=== PATIENT | female | born 1960 | race Caucasian/White ===

== ENCOUNTER 2020-09-12 08:52 | Inpatient (IN) | payer OTHER, SELFPAY ==
[2020-09-12] VITALS (14 sets, daily range): BP systolic 160–220; BP diastolic 69–110; PULSE 83–93; RESP 16–22; TEMP 36.4–37.1; O2SAT 96–100; BMI 20.3
--- NOTE | 2020-09-12 09:22 | XR_ITS ---
EXAMINATION: XR CHEST CLINICAL INFORMATION: Nausea/vomiting/diarrhea and diffuse abdominal pain. COMPARISON: None TECHNIQUE: 2 views of the chest were obtained. FINDINGS: No significant abnormality is noted involving the heart, lungs, mediastinum, bony thorax or soft tissues. XR/XR chest 2V IMPRESSION: Unremarkable chest.
--- NOTE | 2020-09-12 09:23 | CT_ITS ---
EXAMINATION: CT ABDOMEN AND PELVIS WITH CONTRAST CLINICAL INFORMATION: Left lower quadrant abdominal pain radiating to the rest of the abdomen. Nausea, vomiting and diarrhea. COMPARISON: 05/16/2020 CT abdomen and pelvis with IV contrast. TECHNIQUE: Multidetector volumetric images were obtained from the superior aspect of the liver through the pubic symphysis following administration 85 mL of Omnipaque 350 intravenous contrast. Sagittal and coronal reformatted images were obtained on the technologist's workstation. Oral contrast: No This CT examination was performed using dose optimization techniques as appropriate, variously including the following: *Automated exposure control *Adjustment of mA and/or kV according to patient size (this includes techniques or standardized protocols for targeted exams where dose is matched to indication/reason for exam; i.e. extremities or head) *Use of iterative reconstruction technique DLP: 394 mGy-cm FINDINGS: LUNG BASES: The lung bases are unremarkable. The heart size is normal. There is a pectus excavatum deformity of the chest. Suspect small hiatal hernia. LIVER, GALLBLADDER, AND BILIARY TREE: The liver is normal in size, shape, and attenuation. No focal hepatic lesion or biliary ductal dilatation is present. The gallbladder is unremarkable with no evidence of radiopaque gallstones, gallbladder wall thickening, or obvious pericholecystic inflammatory changes. PANCREAS: Unremarkable. SPLEEN: Unremarkable. ADRENAL GLANDS: Unremarkable. KIDNEYS AND URETERS: The kidneys are normal in size, shape, and attenuation. No hydronephrosis, hydroureter, or calculi seen. No perinephric stranding. BLADDER: The bladder is distended with air-fluid level. Moderate air within the bladder is of unknown etiology. GASTROINTESTINAL TRACT: There are 2 structures along the medial gastric fundus. A 2.8 cm lesion with central calcification on axial image 14/3; a second larger lesion measuring 2.8 x 2.1 cm, posterior to the gastric fundus and appears communicating to the fundal lumen suggestive of diverticulum and best visualized on axial image 14/3. The rest of the visualized stomach, small bowel loops appear unremarkable. There is scattered stool and gas seen throughout the colon without significant distention. A few scattered diverticuli are seen in the sigmoid and descending colon with nonspecific mild mural thickening of descending and sigmoid colon. No pericolic fat stranding seen. There is no free air. ABDOMINAL WALL: No significant hernia is appreciated. LYMPH NODES: Normal. VASCULAR: There is mild atherosclerotic calcification of the thoracic aorta without aneurysmal dilatation. PELVIC VISCERA: The uterus is midline. There is gas visualized in the cervix. No free fluid seen. There is no adnexal mass. OSSEOUS STRUCTURES: No lytic or sclerotic process seen. There is mild ventral spondylosis, upper and mid lumbar spine. CT/CT abdomen pelvis w con IMPRESSION: 1. Moderately distended urinary bladder with air-fluid level. Unknown etiology for air within the bladder. This was not seen on the previous study. Differential diagnosis may include recent bladder catheterization or cervical-bladder fistula or colo-vesicular fistula. Mild constipation with scattered colonic diverticulosis. 2. Two lesions medial to the gastric fundus. Lesion posterior to the fundus is a diverticulum. Lesion medial to the fundus at the GE junction may be a second diverticulum or a small lymph node. It is, however, stable compared to previous study.
[2020-09-12] MEDS: 0.9 % Sodium Chloride 1,000 ML 999 ML IVCONT ×2 (09:42→16:17)
[2020-09-12 09:49] LABS: MANUAL DIFF FLAG NO
[2020-09-12] MEDS: ondansetron HCL 4 MG/2 ML VIAL IVPUSH ×3 (09:49→21:53)
[2020-09-12] MEDS: Ketorolac Tromethamine 15 MG/ML VIAL IV (09:49)
--- NOTE | 2020-09-12 09:54 | ED.NAVMDI ---
HPI - Nausea/Vomiting/Diarrhea General Chief complaint: Nausea/Vomiting/Diarrhea Stated complaint: VOMITING Time Seen by Provider: 09/12/20 09:14 Source: patient Mode of arrival: ambulatory Limitations: no limitations History of Present Illness HPI Narrative: 60yoF c PMHx of Insulin-dependent DM, HTN, depression c a PSHx of an appendectomy presenting to the ED c c/o N/V and LLQ abdominal pain radiating to the rest of the abdomen with associated diarrhea for the past 4 days worse today. Reports initially she was constipated although on she had a large bowel movement which was watery. Reports she also had an episode yesterday of hemoptysis although it was dark therefore she was not sure if it was blood. Reports she has not been able to take her medications since due to the N/V. Denies any other symptoms complaints or concerns at this time. Denies recent travel or sick contacts. Related Data Previous Rx's Medication Instructions Recorded sertraline 50 mg tablet 50 mg PO DAILY #30 tab 09/08/20 Allergies Allergy/AdvReac Type Severity Reaction Status Date / Time Penicillins [PENICILLINS] Allergy Severe INVOLUNTARY Verified 09/12/20 09:45 SPASMS Review of Systems Review of Systems: Constitutional : No Weight loss, No Fever, No Chills, No Night Sweats, No Fatigue, No Malaise ENT/Mouth: No ear pain, No sore throat, No Difficulty swallowing Cardiovascular : No Chest Pain, No SOB, No Palpitations Respiratory : No Cough, No Sputum, No Wheezing, No Dyspnea Gastrointestinal : + Nausea, + Vomiting, + Diarrhea, + abdominal Pain, No Hematochezia, No Melena Genitourinary : No irregular bleeding, No Dysuria, No Urinary Frequency, No Hematuria, No Urinary Incontinence, No Urgency, No Flank Pain Musculoskeletal : No joint pain, No Myalgias, No Joint Swelling Skin : No Skin Lesions, No rash Neuro : No Weakness, No Numbness, No Paresthesias, No Loss of Consciousness, No Dizziness, No Headache Psych : No Social Issues, Heme/Lymph: No Bruising, No Bleeding,No Lymphadenopathy Endocrine : No Polyuria, No Polydipsia, No Temperature Intolerance Yes all other systems are reviewed and are negative PMFSH Past Medical History Attestation statement: The following information was validated with the patient. Medical History Depression Diabetes mellitus, insulin dependent (IDDM), controlled HTN (hypertension) Surgical History Hx of appendectomy Social History Social History Alcohol intake: never Smoking Status: Never smoker Use of substances other than those prescribed or required for medical reasons: No Advance Directives: No Advance Directives Information Provided: No Physical Exam Vital Signs: Vital Signs: Vital Signs Temp Pulse Resp BP Pulse Ox 09/12/20 14:49 91 22 H 179/74 H 98 09/12/20 12:28 98.6 F 93 20 203/103 H 99 09/12/20 09:00 97.6 F 92 16 160/82 H 100 Body Mass Index 20.3 vital signs have been reviewed as normal and appeared to be correct. Blood pressure normal. Heart rate normal. Respiration rate normal. Temperature normal. Oxygen saturation normal. Appearance: Alert. Oriented X3. No acute distress. Head: Normal external exam. Normocephalic. Atraumatic. No Orozco signs noted. No raccoon eyes noted Eyes: PERRLA. EOMI. Conjunctiva and sclera normal. Eyelids normal. ENT: EAC normal. TM's Normal. Pharynx normal. Uvula midline. Moist mucous membranes. No trismus noted. No drooling noted. No muffled voice noted. Neck: Normal inspection. Neck supple. FROM. No adenopathy. Thyroid Normal. No meningeal signs. No neck mass noted. CVS: Normal heart rate and rhythm. Heart sound normal. No murmurs noted. Pulses normal throughout. Respiratory: No respiratory distress. Painless inspiration. Breath sounds normal. No wheezes/rales/rhonchi noted. Chest nontender. No accessory muscle usage noted or decreased air movement noted. Abdomen: Soft and moderate TTP of LLQ abd and diffusely. Bowel sounds normal in all 4 quadrants. No distention noted. No organomegaly noted. No visible injury noted. Back: No CVA tenderness. Full range of motion noted. Skin: Skin warm and dry. Normal skin color. Normal skin turgor. No rashes/lesions/lacerations noted. Extremities: No lower extremity edema. Extremities exhibit normal range of motion. Extremities nontender. Neuro: Oriented X 3. No motor deficit. No sensory deficit. Reflexes normal. Course Course Course Narrative: 9:45am 60yoF c PMHx of Insulin-dependent DM, HTN, depression c a PSHx of an appendectomy presenting to the ED c c/o N/V and LLQ abdominal pain radiating to the rest of the abdomen with associated diarrhea for the past 4 days worse today. Reports initially she was constipated although on she had a large bowel movement which was watery. Reports she also had an episode yesterday of hemoptysis although it was dark therefore she was not sure if it was blood. Reports she has not been able to take her medications since due to the N/V. Denies any other symptoms complaints or concerns at this time. Denies recent travel or sick contacts. - Concern for Diverticulitis vs mass vs perforation - Plan: Labs, CT scan of abd/epvlis c IV contrast. Provide symptomatic treatment with IV fluids, 4 mg of Zofran and 15 mg of Toradol then re-evaluate. Reevaluation(s) Reevaluation #1: [place] [id number] although this was most likely related to the multiple episodes of nausea /vomiting and diarrhea. Although blood cultures and lactic acid ordered and drawn at this time. Patient given IV fluids along with 700 mg of Levaquin for possible intra-abdominal process/infection. We will also provide 2 mg of morphine and 10 mg of Reglan. Still awaiting CT scan of abdomen and pelvis with IV contrast will re-evaluate. Time: 12:00 Reevaluation #2: All other labs are within normal limits including lactic acid which is 0.7. CT scan of abdomen and pelvis revealed moderately distended urinary bladder with air-fluid level in the differential diagnosis on the CT scan was possibly recent bladder catheterization or cervical bladder fistula or colo vesicular fistula although patient denied any recent bladder catheterization. Therefore UA obtained and it appears that patient has UTI. We will plan to admit for UTI/pain control. Patient understands agrees the plan. Time: 15:33 MDM - Nausea/Vomiting/Diarrhea Medical Records Attestation: I reviewed the patient's medical records. Lab Data Attestation: I reviewed the patient's lab results. Result diagrams: 09/12/20 09:43 09/12/20 09:43 Labs: Lab Results 09/12/20 09/12/20 09/12/20 Range/Units 09:43 09:43 09:43 WBC 17.8 H (4.8-10.8) X10*3/uL RBC 3.77 L (4.20-5.50) X10*6/uL Hgb 10.4 L (12.0-16.0) g/dl Hct 30.5 L (37-47) % MCV 80.9 (80-98) fL MCH 27.6 (27.0-33.0) pg MCHC 34.1 (31.0-35.0) g/dl RDW 12.4 (11.0-16.0) % Plt Count 426 H (160-400) X10*3/uL MPV 9.5 (9.4-12.3) fL Immature Gran % (Auto) 0.6 H (0.0-0.4) % Neut % (Auto) 85.3 H (45-73) % Lymph % (Auto) 7.8 L (20-40) % [place] % (Auto) 6.2 (2-11) % Eos % (Auto) 0.0 (0-4) % Baso % (Auto) 0.1 (0-2) % Lymph # (Auto) 1.4 (1.2-4.9) X10*3/uL [place] # (Auto) 1.1 (0.1-1.2) X10*3/uL Eos # (Auto) 0.0 (0.0-0.4) X10*3/uL Baso # (Auto) 0.0 (0.0-0.2) X10*3/uL Abs Immat Gran (auto) 0.11 H (0.00-0.03) X10*3/uL Absolute Neuts (auto) 15.2 H (2.0-8.3) X10*3/uL Absolute Nucleated RBC 0.000 (0.0-0.012) X10*3/uL Nucleated RBC % (auto) 0.0 (0.0-0.2) /100WBC PT 11.5 (10.8-13.0) SEC INR 1.0 (0.9-1.1) Sodium 135 (135-145) mmol/L Potassium 3.4 (3.3-5.1) mmol/l Chloride 92 L (96-108) mmol/L Carbon Dioxide 26 (22-29) mmol/L Anion Gap 20 (12-20) BUN 36 H (9-16) mg/dL Creatinine 1.02 (0.5-1.4) mg/dL Estim Creat Clear Calc 55.9 Estimated GFR 56 Random Glucose 337 H (60-115) mg/dL Lactic Acid (0.5-2.0) mmol/L Calcium 9.4 (8.4-10.2) mg/dL Magnesium 1.6 (1.6-2.6) mg/dL Total Bilirubin 0.6 (0.0-1.0) mg/dL Direct Bilirubin 0.2 (0.0-0.5) mg/dL AST 12 (5-31) U/L ALT 10 (0-31) U/L Alkaline Phosphatase 52 (39-117) U/L Total Protein 6.7 (6.5-8.0) g/dL Albumin 3.9 (3.5-5.0) g/dL Urine Color Urine Appearance Urine pH (5.0-8.0) Ur Specific [place] (1.005-1.025) Urine Protein (NEG-TRACE) MG/DL Urine Glucose (UA) (NEG) MG/DL Urine Ketones (NEG) MG/DL Urine Blood (NEG) Urine Nitrite (NEG) Ur Leukocyte Esterase (NEG) Urine RBC (0) /HPF Urine WBC (0-4) /HPF Urine WBC Clumps Ur Squamous Epith Cells /LPF Urine Bacteria /LPF 09/12/20 09/12/20 Range/Units 11:55 14:46 WBC (4.8-10.8) X10*3/uL RBC (4.20-5.50) X10*6/uL Hgb (12.0-16.0) g/dl Hct (37-47) % MCV (80-98) fL MCH (27.0-33.0) pg MCHC (31.0-35.0) g/dl RDW (11.0-16.0) % Plt Count (160-400) X10*3/uL MPV (9.4-12.3) fL Immature Gran % (Auto) (0.0-0.4) % Neut % (Auto) (45-73) % Lymph % (Auto) (20-40) % [place] % (Auto) (2-11) % Eos % (Auto) (0-4) % Baso % (Auto) (0-2) % Lymph # (Auto) (1.2-4.9) X10*3/uL [place] # (Auto) (0.1-1.2) X10*3/uL Eos # (Auto) (0.0-0.4) X10*3/uL Baso # (Auto) (0.0-0.2) X10*3/uL Abs Immat Gran (auto) (0.00-0.03) X10*3/uL Absolute Neuts (auto) (2.0-8.3) X10*3/uL Absolute Nucleated RBC (0.0-0.012) X10*3/uL Nucleated RBC % (auto) (0.0-0.2) /100WBC PT (10.8-13.0) SEC INR (0.9-1.1) Sodium (135-145) mmol/L Potassium (3.3-5.1) mmol/l Chloride (96-108) mmol/L Carbon Dioxide (22-29) mmol/L Anion Gap (12-20) BUN (9-16) mg/dL Creatinine (0.5-1.4) mg/dL Estim Creat Clear Calc Estimated GFR Random Glucose (60-115) mg/dL Lactic Acid 0.7 (0.5-2.0) mmol/L Calcium (8.4-10.2) mg/dL Magnesium (1.6-2.6) mg/dL Total Bilirubin (0.0-1.0) mg/dL Direct Bilirubin (0.0-0.5) mg/dL AST (5-31) U/L ALT (0-31) U/L Alkaline Phosphatase (39-117) U/L Total Protein (6.5-8.0) g/dL Albumin (3.5-5.0) g/dL Urine Color YELLOW Urine Appearance CLOUDY Urine pH 7.0 (5.0-8.0) Ur Specific [place] 1.025 (1.005-1.025) Urine Protein 3+ H (NEG-TRACE) MG/DL Urine Glucose (UA) 500 H (NEG) MG/DL Urine Ketones 15 (NEG) MG/DL Urine Blood 1+ H (NEG) Urine Nitrite NEG (NEG) Ur Leukocyte Esterase NEG (NEG) Urine RBC 0 (0) /HPF Urine WBC 15-29 H (0-4) /HPF Urine WBC Clumps NOTED Ur Squamous Epith Cells 1+ /LPF Urine Bacteria 3+ /LPF Imaging Data CT scan - abdomen: Attestation: I personally reviewed and interpreted this imaging study as follows: Radiologist's impression: IMPRESSION: 1. Moderately distended urinary bladder with air-fluid level. Unknown etiology for air within the bladder. This was not seen on the previous study. Differential diagnosis may include recent bladder catheterization or cervical-bladder fistula or colo-vesicular fistula. Mild constipation with scattered colonic diverticulosis. 2. Two lesions medial to the gastric fundus. Lesion posterior to the fundus is a diverticulum. Lesion medial to the fundus at the GE junction may be a second diverticulum or a small lymph node. It is, however, stable compared to previous study. Critical Care Time Critical Care Time Critical Care Time: Yes Total Critical Care Time: 60 Attestation: I personally attest to this time spent taking care of the patient Discharge Plan Discharge Clinical Impression: UTI (urinary tract infection) Qualifiers: Urinary tract infection type: acute cystitis Hematuria presence: with hematuria Qualified Code(s): N30.01 - Acute cystitis with hematuria Prescriptions: No Action sertraline 50 mg tablet 50 mg PO DAILY Qty: 30 RF: 4
[2020-09-12 09:55] LABS: Basophils Percent Auto 0.1 % (0-2); Hematocrit 30.5 % (37-47); Hemoglobin 10.4 g/dl (12.0-16.0); Imm Gran Abs Auto 0.11 X10*3/uL (0.00-0.03); Imm Gran Pct Auto 0.6 % (0.0-0.4); Lymphocytes Absolute Auto 1.4 X10*3/uL (1.2-4.9); Lymphocytes Percent Auto 7.8 % (20-40); Mean Corpuscular HGB Conc 34.1 g/dl (31.0-35.0); Mean Corpuscular Hemoglobin 27.6 pg (27.0-33.0); Mean Corpuscular Volume 80.9 fL (80-98); Mean Platelet Volume 9.5 fL (9.4-12.3); Monocytes Absolute Auto 1.1 X10*3/uL (0.1-1.2); Monocytes Percent Auto 6.2 % (2-11); Neutrophils Absolute Auto 15.2 X10*3/uL (2.0-8.3); Neutrophils Percent Auto 85.3 % (45-73); Platelet Count 426 X10*3/uL (160-400); Red Blood Count 3.77 X10*6/uL (4.20-5.50); Red Cell Distribution Width 12.4 % (11.0-16.0); White Blood Count 17.8 X10*3/uL (4.8-10.8)
[2020-09-12 09:59] LABS: Prothrombin Time 11.5 SEC (10.8-13.0)
[2020-09-12 10:34] LABS: Alanine Aminotransferase 10 U/L (0-31); Albumin Level 3.9 g/dL (3.5-5.0); Alkaline Phosphatase 52 U/L (39-117); Anion Gap 20 (12-20); Aspartate Amino Transferase 12 U/L (5-31); Bilirubin Direct 0.2 mg/dL (0.0-0.5); Bilirubin Total 0.6 mg/dL (0.0-1.0); Blood Urea Nitrogen 36 mg/dL (9-16); Calcium 9.4 mg/dL (8.4-10.2); Carbon Dioxide 26 mmol/L (22-29); Chloride 92 mmol/L (96-108); Creatinine Clr Calc Pharmacy 55.9; Estimated Glomerular Filt Rate 56; Glucose Random 337 mg/dL (60-115); Magnesium 1.6 mg/dL (1.6-2.6); Potassium 3.4 mmol/l (3.3-5.1); Sodium 135 mmol/L (135-145); Total Protein 6.7 g/dL (6.5-8.0)
[2020-09-12] MEDS: iohexoL 350 MG/ML 100 ML INFUS..BTL IV (11:33)
[2020-09-12] MEDS: Morphine Sulfate 2 MG/ML CARTRIDGE IVPUSH (12:37)
[2020-09-12] MEDS: levoFLOXacin/D5W 750 MG/150 ML PIGGYBACK 100 MG IV (12:37)
[2020-09-12] MEDS: Metoclopramide HCl 10 MG/2 ML VIAL IVPUSH (12:37)
[2020-09-12 12:40] LABS: Lactic Acid 0.7 mmol/L (0.5-2.0)
--- NOTE | 2020-09-12 14:47 | PC.NURSE ---
ASSISTED TO BEDSIDE COMMODE PT STATES SHE IS ESSENTIAL WC BOUND AT HOME FOR MOBILITY
[2020-09-12 15:02] LABS: Glucose Urine UA 500 MG/DL (NEG); Leukocyte Esterase Urine NEG (NEG); Nitrite Urine NEG (NEG); Specific Gravity - Urine 1.025 (1.005-1.025); Urine Blood 1+ (NEG); Urine Ketones 15 MG/DL (NEG); Urine Protein 3+ MG/DL (NEG-TRACE)
[2020-09-12 15:14] LABS: Appearance Urine CLOUDY; Color Urine YELLOW
[2020-09-12 15:15] LABS: Bacteria Urine 3+ /LPF; RBC Urine 0 /HPF (0); Squamous Epithelial Cell Urine 1+ /LPF; UACC CULT YES; WBC Clumps Urine NOTED
[2020-09-12] MEDS: Morphine Sulfate 4 MG/ML CARTRIDGE IVPUSH (16:16)
[2020-09-12 16:32] LABS: Glucose, Whole Blood 253 mg/dL (60-115)
--- NOTE | 2020-09-12 16:42 | P.EN_ITS ---
Event Note Event Note: admission note Date of service 09/12/2020 the patient was seen and evaluated with Sabrina Moore NP. I agree with her note, assessment and plan with the following. in summary, a 60 years old lady with PMH of HTN, diabetes, depression who presents to the hospital with 3 days history of intractable nausea and vomiting. She denies any fever, chills, palpitation, shortness of breath, cough. She reports her urine turned dark in color and she noticed some black vomitus. Reported generalized abdominal pain. In the emergency CT scan the abdomen was concerning for stomach lesion and air in the bladder. Urinalysis showing bacteria, white blood cells but negative nitrate. Admitted for further evaluation treatment Intractable nausea and vomiting Could be secondary to esophageal diverticulitis, UTI, intra-abdominal infection To cover with IV antibiotics To get GI evaluation Zofran for nausea Pantoprazole for now UTI Urinalysis looks infected, to add urine culture Continue antibiotic t Rest of evaluations by [employer] note.
[2020-09-12] MEDS: Omeprazole 40 MG CAPSULE.DR PO (17:14)
--- NOTE | 2020-09-12 17:17 | P.HPIM_ITS ---
History of Present Illness Date of Service: 09/12/20 Chief Complaint: intractable nausea and vomiting a 60 years old lady with PMH of HTN, diabetes, depression who presents to the hospital with 3 days history of intractable nausea and vomiting. she was doing well until when she was supposed to come to the GI lab for what seems like barium swallow evaluation as part of her workup with Dr. Schulz for gastric lesion. That morning she felt nauseous and started to vomit. She continued to do that over the last 2 days and was not able to keep much down her stomach. She denies any fever, chills, palpitation, shortness of breath, cough. She reports her urine turned dark in color and she noticed some black vomitus. Reported generalized abdominal pain. In the emergency CT scan the abdomen was concerning for stomach lesion and air in the bladder. Urinalysis showing bacteria, white blood cells but negative nitrate. Admitted for further evaluation treatment Review of Systems Review of Systems: No fever, chills or weakness No chest pain, palpitation No shortness of breath or coughing Generalized abdominal pain, intractable nausea or vomiting No urinary symptoms, noticed a urine looks more concentrated No any rash or wounds Constitutional: Constitutional: Reports no additional constitutional complaints [facility] Medical History Depression Diabetes mellitus, insulin dependent (IDDM), controlled HTN (hypertension) Pertinent family history: hypertension, diabetes Surgical History Hx of appendectomy Social History Alcohol intake: never Smoking Status: Never smoker Use of substances other than those prescribed or required for medical reasons: No Advance Directives: No Advance Directives Information Provided: No Meds Allergies Allergy/AdvReac Type Severity Reaction Status Date / Time Penicillins [PENICILLINS] Allergy Severe INVOLUNTARY Verified 09/12/20 09:45 SPASMS Home Medications Medication Instructions Recorded Confirmed Type acetaminophen 650 mg PO Q4H PRN 09/12/20 09/12/20 History fludrocortisone 0.1 mg PO DAILY 09/12/20 09/12/20 History gabapentin 600 mg PO TID 09/12/20 09/12/20 History insulin aspart U-100 [Novolog 0 unit SUBCUT TID 09/12/20 09/12/20 History Flexpen U-100 Insulin] insulin glargine [Lantus Solostar 18 unit SUBCUT BEDTIME 09/12/20 09/12/20 History U-100 Insulin] ketorolac 1 drp OPHTHALMIC (EYE) QID 09/12/20 09/12/20 History lidocaine 1 patch TOPICAL DAILY 09/12/20 09/12/20 History metformin 1,000 mg PO BIDWM 09/12/20 09/12/20 History midodrine 10 mg PO TID 09/12/20 09/12/20 History pioglitazone 15 mg PO DAILY 09/12/20 09/12/20 History tramadol 50 mg PO BEDTIME 09/12/20 09/12/20 History Physical Exam Vital Signs and Narrative: Vital Signs: Last Vital Signs Temp 98.6 F 09/12/20 12:28 Pulse 89 09/12/20 16:22 Resp 20 09/12/20 16:16 BP 163/79 H 09/12/20 16:22 Pulse Ox 97 09/12/20 16:22 Body Mass Index 20.3 Constitutional : Alert, oriented, not in distress Neck : Normal inspection, Supple Cardiovascular : RRR, S1 S2, no lower extremity edema Respiratory : Good bilateral air entry, no crackles, wheezes or rhonchi Gastrointestinal: abdomen is soft and lax, mild tenderness with deep palpation all over her abdomen more noticed on the left lower quadrant, no guarding, no surgical signs Skin : Warm/Dry, No rash Neurological : Alert & oriented x3, No focal deficit Results Labs Labs: Laboratory Tests 09/12/20 09/12/20 09/12/20 09:43 09:43 09:43 WBC 17.8 H RBC 3.77 L Hgb 10.4 L Hct 30.5 L MCV 80.9 MCH 27.6 MCHC 34.1 RDW 12.4 Plt Count 426 H MPV 9.5 Immature Gran % (Auto) 0.6 H Neut % (Auto) 85.3 H Lymph % (Auto) 7.8 L [place] % (Auto) 6.2 Eos % (Auto) 0.0 Baso % (Auto) 0.1 Lymph # (Auto) 1.4 [place] # (Auto) 1.1 Eos # (Auto) 0.0 Baso # (Auto) 0.0 Abs Immat Gran (auto) 0.11 H Absolute Neuts (auto) 15.2 H Absolute Nucleated RBC 0.000 Nucleated RBC % (auto) 0.0 PT 11.5 INR 1.0 Sodium 135 Potassium 3.4 Chloride 92 L Carbon Dioxide 26 Anion Gap 20 BUN 36 H Creatinine 1.02 Estim Creat Clear Calc 55.9 Estimated GFR 56 POC Glucose Random Glucose 337 H Lactic Acid Calcium 9.4 Magnesium 1.6 Total Bilirubin 0.6 Direct Bilirubin 0.2 AST 12 ALT 10 Alkaline Phosphatase 52 Total Protein 6.7 Albumin 3.9 Urine Color Urine Appearance Urine pH Ur Specific [place] Urine Protein Urine Glucose (UA) Urine Ketones Urine Blood Urine Nitrite Ur Leukocyte Esterase Urine RBC Urine WBC Urine WBC Clumps Ur Squamous Epith Cells Urine Bacteria 09/12/20 09/12/20 09/12/20 11:55 14:46 16:27 WBC RBC Hgb Hct MCV MCH MCHC RDW Plt Count MPV Immature Gran % (Auto) Neut % (Auto) Lymph % (Auto) [place] % (Auto) Eos % (Auto) Baso % (Auto) Lymph # (Auto) [place] # (Auto) Eos # (Auto) Baso # (Auto) Abs Immat Gran (auto) Absolute Neuts (auto) Absolute Nucleated RBC Nucleated RBC % (auto) PT INR Sodium Potassium Chloride Carbon Dioxide Anion Gap BUN Creatinine Estim Creat Clear Calc Estimated GFR POC Glucose 253 H Random Glucose Lactic Acid 0.7 Calcium Magnesium Total Bilirubin Direct Bilirubin AST ALT Alkaline Phosphatase Total Protein Albumin Urine Color YELLOW Urine Appearance CLOUDY Urine pH 7.0 Ur Specific [place] 1.025 Urine Protein 3+ H Urine Glucose (UA) 500 H Urine Ketones 15 Urine Blood 1+ H Urine Nitrite NEG Ur Leukocyte Esterase NEG Urine RBC 0 Urine WBC 15-29 H Urine WBC Clumps NOTED Ur Squamous Epith Cells 1+ Urine Bacteria 3+ CT abdomen pelvis 1. Moderately distended urinary bladder with air-fluid level. Unknown etiology for air within the bladder. This was not seen on the previous study. Differential diagnosis may include recent bladder catheterization or cervical-bladder fistula or colo-vesicular fistula. Mild constipation with scattered colonic diverticulosis. 2. Two lesions medial to the gastric fundus. Lesion posterior to the fundus is a diverticulum. Lesion medial to the fundus at the GE junction may be a second diverticulum or a small lymph node. It is, however, stable compared to previous study. Assessment and Plan (1) UTI (urinary tract infection): Qualifiers: Hematuria presence: with hematuria Urinary tract infection type: acute cystitis Qualified Code(s): N30.01 - Acute cystitis with hematuria Status: Acute (2) Intractable abdominal pain: Status: Acute (3) Sepsis: Qualifiers: Sepsis acute organ dysfunction status: without acute organ dysfunction Sepsis type: sepsis due to unspecified organism Qualified Code(s): A41.9 - Sepsis, unspecified organism Status: Acute (4) Nausea & vomiting: Qualifiers: Vomiting type: bilious vomiting Qualified Code(s): R11.14 - Bilious vomiting Status: Acute (5) Acute hyperglycemia: Status: Acute (6) Diabetes mellitus, insulin dependent (IDDM), controlled: Status: Acute a 60 years old lady with PMH of HTN, diabetes, depression who presents to the hospital with 3 days history of intractable nausea and vomiting. Intractable nausea and vomiting Could be secondary to esophageal diverticulitis, UTI, intra-abdominal infection To cover with IV antibiotics To get GI evaluation Zofran for nausea Pantoprazole for now To check occult blood Gastric lesions seems to be under evaluation by Dr. Schulz Could be contributing to her current presentation For GI evaluation the morning Sepsis Secondary toUTI, intra-abdominal infection Urinalysis looks infected, to add urine culture pending blood cultures Continue Levaquin for now Hyperglycemia secondary to diabetes Start Lantus lower than home dose As the patient on clear liquids SSI for now P.o. C Neuropathy continue gabapentin DVT PPX SCDs, pending occult blood stool
[2020-09-12 17:30] LABS: SARS COV2 PCR INHOUSE NEGATIVE (Negative)
--- NOTE | 2020-09-12 18:38 | PC.NURSE ---
CALLED FOR REPORT TO C
[2020-09-12 21:19] LABS: Glucose, Whole Blood 169 mg/dL (60-115)
[2020-09-12] MEDS: hydrALAZINE HCl 20 MG/ML VIAL 5 MG IVPUSH (21:24)
[2020-09-12] MEDS: Insulin Lispro 100 UNIT/ML 3 ML VIAL SUBCUT (21:25)
[2020-09-12] MEDS: Insulin Glargine,Hum.rec.anlog 100 UNIT/ML 10 ML VIAL 10 UNIT SUBCUT (21:26)
[2020-09-12] MEDS: Gabapentin 600 MG TABLET PO (21:26)
[2020-09-12] MEDS: Sodium Chloride 0.45 % 1,000 ML 100 ML IVCONT (21:34)
[2020-09-12] MEDS: Labetalol HCL 100 MG/20 ML VIAL 10 MG IVPUSH (23:39)
[2020-09-12] MEDS: Morphine Sulfate 4 MG/ML CARTRIDGE 2 MG IVPUSH (23:51)
[2020-09-13] VITALS (13 sets, daily range): BP systolic 86–218; BP diastolic 49–96; PULSE 83–92; RESP 16–20; TEMP 35.9–36.7; O2SAT 97–99; BMI 18.6
--- NOTE | 2020-09-13 05:23 | PC.NURSE ---
2049 BP 220/110 NOTIFIED .PT MEDICATED WITH HYDRALAZINE 5MG IV.BP AT 2300 196/84 NOTIFIED.PT MEDICATED WIT LABETOLOL 10MG IV BY [facility].AT 99 BP 1778/80.
[2020-09-13] MEDS: ondansetron HCL 4 MG/2 ML VIAL IVPUSH ×2 (06:10→17:17)
[2020-09-13 06:35] LABS: MANUAL DIFF FLAG NO
[2020-09-13 07:08] LABS: Basophils Percent Auto 0.2 % (0-2); Eosinophils Percent Auto 0.1 % (0-4); Hematocrit 24.6 % (37-47); Hemoglobin 8.4 g/dl (12.0-16.0); Imm Gran Abs Auto 0.09 X10*3/uL (0.00-0.03); Imm Gran Pct Auto 0.6 % (0.0-0.4); Lymphocytes Absolute Auto 1.4 X10*3/uL (1.2-4.9); Lymphocytes Percent Auto 9.3 % (20-40); Mean Corpuscular HGB Conc 34.1 g/dl (31.0-35.0); Mean Corpuscular Hemoglobin 27.9 pg (27.0-33.0); Mean Corpuscular Volume 81.7 fL (80-98); Mean Platelet Volume 9.8 fL (9.4-12.3); Monocytes Absolute Auto 1.2 X10*3/uL (0.1-1.2); Monocytes Percent Auto 8.4 % (2-11); Neutrophils Absolute Auto 11.9 X10*3/uL (2.0-8.3); Neutrophils Percent Auto 81.4 % (45-73); Platelet Count 324 X10*3/uL (160-400); Red Blood Count 3.01 X10*6/uL (4.20-5.50); Red Cell Distribution Width 12.8 % (11.0-16.0); White Blood Count 14.6 X10*3/uL (4.8-10.8)
[2020-09-13 07:11] LABS: Anion Gap 13 (12-20); Blood Urea Nitrogen 34 mg/dL (9-16); Carbon Dioxide 26 mmol/L (22-29); Chloride 101 mmol/L (96-108); Estimated Glomerular Filt Rate > 60; Glucose Random 158 mg/dL (60-115); Potassium 3.1 mmol/l (3.3-5.1); Sodium 137 mmol/L (135-145)
--- NOTE | 2020-09-13 07:17 | P.CNGI_ITS ---
History of Present Illness Data of Consult Requesting physician: Tatyana Yates Primary Care Provider: Scott Nguyen MD HPI Reason for consult: Abdominal pain, nausea and vomiting, abnormal abdominal CT scan 60 YF known to me from past GI clinic visit presented to [facility] yesterday: 60yoF c PMHx of Insulin-dependent DM, HTN, depression c a PSHx of an appendectomy presenting to the ED c c/o N/V and LLQ abdominal pain radiating to the rest of the abdomen with associated diarrhea for the past 4 days worse today. Reports initially she was constipated although on she had a large bowel movement which was watery. Reports she also had an episode yesterday of hemoptysis although it was dark therefore she was not sure if it was blood. Reports she has not been able to take her medications since due to the N/V. Denies any other symptoms complaints or concerns at this time. Denies recent travel or sick contacts Pt was admitted for further management and started on IV antiemetics, pain medications and Levofloxacin. IMAGING STUDIES: 09/12/[address] SCAN SHOWED: GASTROINTESTINAL TRACT: There are 2 structures along the medial gastric fundus. A 2.8 cm lesion with central calcification on axial image 14/3; a second larger lesion measuring 2.8 x 2.1 cm, posterior to the gastric fundus and appears communicating to the fundal lumen suggestive of diverticulum and best visualized on axial image 14/3. The rest of the visualized stomach, small bowel loops appear unremarkable. There is scattered stool and gas seen throughout the colon without significant distention. A few scattered diverticuli are seen in the sigmoid and descending colon with nonspecific mild mural thickening of descending and sigmoid colon. No pericolic fat stranding seen. There is no free air. Patient was scheduled for a gastric emptying study on , 09/08/2020 since her recent EGD was suggestive of gastroparesis. Early morning she noted generalized abdominal pain with vomiting and had to cancel the gastric emptying study. Abdominal pain is stabbing and radiates to the left side. Vomitus consisted of partially digested food. On 09/11/20 She noted an episode of dark emesis containing some blood. She came to [facility] yesterday since her symptoms became worse. She has been unable to tolerate solid food or take her medications. Pt complains of chronic constipation has a bowel movement every 3-4 days. She admits to weight loss of 15 lb over the past few months ( decreased from 145-130 lb). Lost muscle mass - this is her 3rd hospitalization. She was previously hospitalized with othostatic hypotension and unable to drive and has pins and needles due to neuropathy. Paternal side of family have cancer - Prostate cancer in Dad, GM had uterine CA. Denies known FH of colon cancer An older brother had colon polyps in his early 60's. PAST GI HISTORY BY REVIEW OF MEDICAL RECORDS: 2014 had an EGD at [facility] which showed a benign tumor (Leiomyoma) just inside the stomach and she was advised to have it checked every 2 yrs. 07/18/15 EUS was performed by Dr Quinones: There was a subepithelial mass in the fundus/cardia just distal to the GE junction Hypoechoic homogeneous mass measuring 2.4 cm in largest dimension arising from the muscularis propria in the proximal stomach. There was no surrounding lymphadenopathy. A 22 call urge FNA needle was used to obtain 3 passes through the mass and tissue obtained was sent for cytology. 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 Biopsies showed: Low-grade smooth muscle neoplasm consistent with leiomyoma. Immunocytochemical profile supported the above diagnosis. Last EGD in 2018 - no change in the tumor. Also had a colonoscopy - lining of the colon was a little thicker and she was advised repeat colon in 10 yrs. 07/29/20 EGD showed: STOMACH: Copious amounts of retained food in the fundus and body of the stomach (despite pt being NPO for > 12 hrs). Mild gastric erythema. Biopsies were obtained. A 2.5 cms submucosal mass just distal to the cardia with normal overlying mucosa ( leimyoma on past EUS guided bx) seen on retroflexed exam. Grade 2 flap valve on retroflexed examination of the cardia. DUODENUM: Normal - biopsied to check for celiac sprue. Patient's symptoms are likely due to diabetic gastroparesis. Plan: Await pathology results Continue present medications. A gastric emptying study will be scheduled by the GI clinic. Patient to schedule a FU appointment in the GI Clinic with João Schulz M.D Above findings were reviewed with the patient. BIOPSIES SHOWED: A. Small bowel, biopsy: Small bowel mucosa within normal limits; preserved villous architecture and no increased intraepithelial lymphocytes. B. Stomach, antrum, biopsy: Gastric antral and body mucosa with mild chronic inactive gastritis; negative for Helicobacter pylori, intestinal metaplasia and dysplasia. Review of Systems Constitutional: Constitutional: Denies fever(s), Denies headache(s) and Reports weight loss Eyes: Eyes: Denies eye discharge and Denies irritation ENT: Reports Normal hearing present, Denies dysphagia, Denies dizziness and Denies headache(s) Cardiovascular: Cardiovascular: Denies chest pain, Denies leg edema and Denies dyspnea on exertion Respiratory: Respiratory: Denies cough and Denies dyspnea on exertion Gastrointestinal: Gastrointestinal: Reports abdominal pain, Denies change in bowel habits, Denies dysphagia, Denies heartburn, Reports nausea and Reports vomiting Genitourinary: Genitourinary: Denies difficulty voiding and Denies dysuria Musculoskeletal: Musculoskeletal: Denies back pain, Denies arthralgias, Reports numbness and Reports tingling Integumentary/Breasts: Skin/Breast: Denies pruritus, Denies rash and Denies jaundice Neurologic: Reports Normal hearing present, Denies Abnormal speech present, Denies dizziness, Denies headache(s), Reports numbness, Denies seizure-like acti vity and Reports tingling Psychiatric: Psychiatric: Denies anxiety, Denies depression and Denies panic attacks Endocrine: Endocrine: Denies cold intolerance, Denies flushing and Denies heat intolerance PMFSH Past Medical History Medical History (Updated 09/15/20 @ 15:49 by Scott Ocasio MD) Depression Diabetes mellitus, insulin dependent (IDDM), controlled HTN (hypertension) Surgical History Surgical History (Updated 09/13/20 @ 14:18 by João Schulz MD) H/O elbow surgery Hx of appendectomy Social History Social History Household Members: Significant Other and Children Housing: House Alcohol intake: never Smoking Status: Never smoker service: No Meds Allergies Allergy/AdvReac Type Severity Reaction Status Date / Time Penicillins [PENICILLINS] Allergy Severe INVOLUNTARY Verified 09/12/20 09:45 SPASMS Home Medications Medication Instructions Recorded Confirmed Type Lantus Solostar U-100 Insulin 18 unit SUBCUT BEDTIME 09/12/20 09/12/20 History acetaminophen 650 mg PO Q4H PRN 09/12/20 09/12/20 History fludrocortisone 0.1 mg PO DAILY 09/12/20 09/12/20 History gabapentin 600 mg PO TID 09/12/20 09/12/20 History insulin aspart U-100 [Novolog 0 unit SUBCUT TID 09/12/20 09/12/20 History Flexpen U-100 Insulin] ketorolac 1 drp OPHTHALMIC (EYE) QID 09/12/20 09/12/20 History lidocaine 1 patch TOPICAL DAILY 09/12/20 09/12/20 History metformin 1,000 mg PO BIDWM 09/12/20 09/12/20 History tramadol 50 mg PO BEDTIME 09/12/20 09/12/20 History Physical Exam Vital Signs: Vital Signs: Vital Signs Temp Pulse Resp BP Pulse Ox 09/13/20 03:27 97.6 F 83 18 166/75 H 98 09/13/20 01:02 84 178/80 H 97 09/12/20 23:55 84 169/81 H 97 09/12/20 23:50 84 170/69 H 97 09/12/20 23:39 86 205/93 H 09/12/20 23:38 98.1 F 86 18 201/93 H 98 09/12/20 22:51 83 196/84 H 96 09/12/20 21:32 88 220/110 H 09/12/20 21:24 88 220/110 H 09/12/20 20:07 98.5 F 88 18 220/110 H 96 09/12/20 18:20 98.7 F 84 16 179/76 H 98 09/12/20 16:22 89 163/79 H 97 09/12/20 16:16 20 09/12/20 14:49 91 22 H 179/74 H 98 09/12/20 12:28 98.6 F 93 20 203/103 H 99 09/12/20 09:00 97.6 F 92 16 160/82 H 100 Body Mass Index 18.6 Const: General: no acute distress and ill appearing Nutritional Appearance: average body habitus Orientation/consciousness: patient oriented x3 Limitations: no limitations HENMT: Head: Yes normal to inspection Ears: hearing grossly normal bilaterally Mouth: Normal oral and palatal mucosa present Eyes: Sclerae: sclerae normal Pupils: Equal, round and reactive pupils present Neck: Neck: Yes normal visual inspection Chest: Chest palpation & inspection: normal inspection of the chest Resp: Effort & Inspection: normal respiratory effort Auscultation: clear to auscultation bilaterally Cardio: Palpation: normal PMI Rate: regular rate Rhythm: regular rhythm Heart sounds: S1 normal heart sound present, S2 normal heart sound present and no murmurs GI: Palpation (GI): Soft to palpation, Tenderness to palpation present (GI) ( mild diffuse tenderness), no guarding and No hepatosplenomegaly present Auscultation: normal bowel sounds Rectal Exam - Female: deferred Skin: General skin exam: no rashes or lesions noted Neuro: General: patient oriented x3, gait normal and moves all extremities Cranial nerves: Yes Equal, round and reactive pupils present and Yes Normal hearing present Speech: No Abnormal speech present Psych: Appearance: grossly normal Mental Status: mental status grossly normal Results Labs CBC & Chem 7: 09/15/20 05:36 09/17/20 06:23 Labs: Short CBC 09/12/20 Range/Units 09:43 WBC 17.8 H (4.8-10.8) X10*3/uL Hgb 10.4 L (12.0-16.0) g/dl Hct 30.5 L (37-47) % Plt Count 426 H (160-400) X10*3/uL BMP 09/12/20 09/13/20 09:43 05:43 Sodium 135 137 Potassium 3.4 3.1 L Chloride 92 L 101 Carbon Dioxide 26 26 BUN 36 H 34 H Creatinine 1.02 0.78 Calcium 9.4 Liver Function 09/12/20 Range/Units 09:43 Total Bilirubin 0.6 (0.0-1.0) mg/dL Direct Bilirubin 0.2 (0.0-0.5) mg/dL AST 12 (5-31) U/L ALT 10 (0-31) U/L Alkaline Phosphatase 52 (39-117) U/L Albumin 3.9 (3.5-5.0) g/dL Urine 09/12/20 Range/Units 14:46 Urine Color YELLOW Urine Appearance CLOUDY Urine pH 7.0 (5.0-8.0) Ur Specific [place] 1.025 (1.005-1.025) Urine Protein 3+ H (NEG-TRACE) MG/DL Urine Glucose (UA) 500 H (NEG) MG/DL Assessment and Plan (1) Nausea & vomiting: Qualifiers: Vomiting type: bilious vomiting Qualified Code(s): R11.14 - Bilious vomiting Status: Acute (2) Intractable abdominal pain: Status: Acute 60 YF with Type 2 DM, depression and orthostatic hypotension admitted to [facility] with generalized abdominal pain, nausea and vomiting. 07/29/20 EGD showed copious amounts of retained food in the fundus/ body of the stomach and a 2.5 cms submucosal mass just distal to the cardia with normal overlying mucosa ( leimyoma on past EUS guided bx). 09/[address] scan showed a 2.8 cm lesion with central calcification a second larger lesion measuring 2.8 x 2.1 cm, posterior to the gastric fundus and appears communicating to the fundal lumen suggestive of diverticulum. Air fluid level in the bladder suggestive of a fsitula between bladder and cervix versus colon. Pt has seen Urology [facility] and reports having a cystoscopy with stent placement in November 2019 (? for a benign bladder tumor) which was subsequently removed. She is interested in consolidating her care at 1 institution ([facility]) and is requesting Urology consultation at [facility] Patient's symptoms of pain with recurrent nausea vomiting are likely due to worsening gastroparesis. Episode of hematemesis 2 days ago likely caused by a Madelyn-Arellano tear. RECOMMENDATIONS: 1. Continue management with IV antiemetics and pain medications. 2. I will schedule an EGD if she has recurrent UGIB. 2. Schedule a GES once vomting improves - tomorrow or the following day. If GES shows gastroparesis, start patient on Metoclopramide 3 times daily before meals. 3. Start Miralax once daily for constipation - order placed. 4. Consultation with Urology to FU on ? of baldder fistula and past stent placement.
[2020-09-13 07:26] LABS: Calcium 8.1 mg/dL (8.4-10.2)
[2020-09-13 07:59] LABS: Glucose, Whole Blood 168 mg/dL (60-115)
[2020-09-13] MEDS: Sodium Chloride 0.45 % 1,000 ML 100 ML IVCONT ×2 (08:26→22:59)
[2020-09-13] MEDS: 0.9 % Sodium Chloride Flush 3 ML SYRINGE IVFLUSH ×3 (08:27→22:09)
[2020-09-13] MEDS: Morphine Sulfate 4 MG/ML CARTRIDGE 2 MG IVPUSH ×3 (08:38→22:09)
[2020-09-13] MEDS: Potassium Chloride Packet 20 MEQ PACKET 40 MEQ PO (08:39)
[2020-09-13 11:40] LABS: Glucose, Whole Blood 139 mg/dL (60-115)
--- NOTE | 2020-09-13 12:22 | MHC.CM.PN ---
DC PLAN HOME NO SERV CEIS PT HAS WON TRANSPORTAION HOME
--- NOTE | 2020-09-13 13:51 | HO.PM.IMPN ---
Subjective Subjective Date of Service: 09/13/20 Interval History: no appetite Cardiovascular Cardiovascular: Reports no additional cardiovascular complaints Respiratory Respiratory: Reports no additional respiratory complaints Physical Exam Vital Signs: Vital Signs: Vital Signs Temp Pulse Resp BP Pulse Ox 09/13/20 12:36 16 09/13/20 11:29 97.4 F 86 20 198/96 H 98 09/13/20 08:28 83 186/83 H 09/13/20 07:53 96.6 F L 83 18 186/83 H 99 09/13/20 03:27 97.6 F 83 18 166/75 H 98 09/13/20 01:02 84 178/80 H 97 09/12/20 23:55 84 169/81 H 97 09/12/20 23:50 84 170/69 H 97 09/12/20 23:39 86 205/93 H 09/12/20 23:38 98.1 F 86 18 201/93 H 98 09/12/20 22:51 83 196/84 H 96 09/12/20 21:32 88 220/110 H 09/12/20 21:24 88 220/110 H 09/12/20 20:07 98.5 F 88 18 220/110 H 96 09/12/20 18:20 98.7 F 84 16 179/76 H 98 09/12/20 16:22 89 163/79 H 97 09/12/20 16:16 20 09/12/20 14:49 91 22 H 179/74 H 98 Body Mass Index 18.6 Constitutional : Alert, oriented, not in distress Neck : Normal inspection, Supple Cardiovascular : RRR, S1 S2, no lower extremity edema Respiratory : Good bilateral air entry, no crackles, wheezes or rhonchi Gastrointestinal: abdomen is soft and lax, mild tenderness with deep palpation all over her abdomen more noticed on the left lower quadrant, no guarding, no surgical signs Skin : Warm/Dry, No rash Neurological : Alert & oriented x3, No focal deficit Objective Data Current Medications Generic Name Dose Route Start Last Admin Trade Name Freq PRN Reason Stop Dose Admin Acetaminophen 650 mg 09/12/20 19:52 Acetaminophen 325 Mg Tablet PO Q4H PRN Pain (Scale Score 1-3) Fludrocortisone Acetate 0.1 mg 09/13/20 09:00 09/13/20 08:27 Fludrocortisone Acetate 0.1 Mg Tablet PO Not Given DAILY [facility] Gabapentin 600 mg 09/12/20 21:00 09/13/20 08:27 Gabapentin 600 Mg Tablet PO Not Given TID [facility] Levofloxacin 500 mg in 100 mls @ 100 mls/hr 09/13/20 15:00 Levaquin IV Q24H [facility] Sodium Chloride 1,000 mls @ 100 mls/hr 09/12/20 19:52 09/13/20 08:26 IVCONT 100 mls/hr .Q10H [facility] Administration Insulin Glargine 10 unit 09/12/20 21:00 09/12/20 21:26 Insulin Glargine,Hum.Rec.Anlog 100 Unit/Ml 10 Ml Vial SUBCUT 10 unit BEDTIME [facility] Administration Insulin Human Lispro 0 unit 09/12/20 21:00 09/13/20 12:36 Insulin Lispro 100 Unit/Ml 3 Ml Vial SUBCUT Not Given QIDACHS [facility] Protocol Ketorolac Tromethamine 1 drop 09/12/20 17:00 09/13/20 12:36 Ketorolac Tromethamine 0.5% Op 5 Ml Drpbtl EYE-BOTH 1 drop QID [facility] Administration Midodrine 10 mg 09/12/20 21:00 09/13/20 08:28 Midodrine Hcl 10 Mg Tablet PO Not Given TID [facility] Morphine Sulfate 2 mg 09/12/20 19:52 09/13/20 12:36 Morphine Sulfate 4 Mg/Ml Cartridge IVPUSH 2 mg Q4H PRN Administration Pain, Severe (Pain Scale 7-10) Ondansetron HCl 4 mg 09/12/20 19:52 09/13/20 06:10 Ondansetron Hcl 4 Mg/2 Ml Vial IVPUSH 4 mg Q8H PRN Administration Nausea and Vomiting Pharmacy Consult 1 each 09/12/20 15:51 Consult Rx Perform Med Rec MISCELLANE ONCE PRN Consult order Pioglitazone HCl 15 mg 09/13/20 09:00 09/13/20 08:28 Pioglitazone Hcl 15 Mg Tablet PO Not Given DAILY [facility] Sertraline HCl 50 mg 09/13/20 09:00 09/13/20 08:28 Sertraline Hcl 50 Mg Tablet PO Not Given DAILY [facility] Sodium Chloride 3 ml 09/13/20 00:00 09/13/20 08:27 0.9 % Sodium Chloride Flush 3 Ml Syringe IVFLUSH 3 ml QSHIFT LILY Administration Tramadol HCl 50 mg 09/12/20 21:00 Tramadol Hcl 50 Mg Tablet PO BEDTIME [facility] Labs CBC & Chem 7: 09/13/20 05:43 09/13/20 05:43 Microbiology Microbiology Results: Microbiology 09/12/20 14:46 Urine clean catch - Clean Catch Midstream Urine Culture - Final Assessment and Plan (1) UTI (urinary tract infection): Status: Acute (2) Intractable abdominal pain: Status: Acute (3) Sepsis: Status: Acute (4) Nausea & vomiting: Status: Acute (5) Acute hyperglycemia: Status: Acute (6) Diabetes mellitus, insulin dependent (IDDM), controlled: Status: Acute Assessment and Plan: a 60 years old lady with PMH of HTN, diabetes, depression who presents to the hospital with 3 days history of intractable nausea and vomiting. Intractable nausea and vomiting Could be secondary to esophageal diverticulitis, UTI, intra-abdominal infection, gatroparesis continue levaquin, follow up cultures, GI ppi, zofran DM insulin air fluid level in bladder no recent instrumentation continue levaquin, follow up
[2020-09-13 16:56] LABS: Glucose, Whole Blood 113 mg/dL (60-115)
[2020-09-13] MEDS: polyethylene glycoL 3350 17 GM POWD.PACK PO (17:18)
[2020-09-13] MEDS: levoFLOXacin/D5W 500 MG/100 ML PIGGYBACK 100 MG IV (17:18)
--- NOTE | 2020-09-13 18:29 | PC.NURSE ---
DIFFICULTY VOIDING IN THE AM. ABLE TO VOID 200 ML IN BED SUAREZ AFTER. POST-VOID RESIDUAL OF 365 ML. HOSPITALIST MADE AWARE.. UROLOGY ALREADY CONSULTED. ASSISTED PT OOB TO COMMODE COUPLE HOURS LATER AND PT ABLE TO VOID 500 ML.
[2020-09-13 21:38] LABS: Glucose, Whole Blood 108 mg/dL (60-115)
--- NOTE | 2020-09-13 22:25 | PM.IMHP ---
Review of Systems Constitutional: Constitutional: Denies headache(s) ENT: Reports Normal hearing present, Denies dizziness and Denies headache(s) Musculoskeletal: Musculoskeletal: Reports numbness and Reports tingling Neurologic: Reports Normal hearing present, Denies Abnormal speech present, Denies dizziness, Denies headache(s), Reports numbness, Denies seizure-like activity and Reports tingling PMFSH Medical History Depression Diabetes mellitus, insulin dependent (IDDM), controlled HTN (hypertension) Surgical History (Updated 09/13/20 @ 14:18 by João Schulz MD) H/O elbow surgery Hx of appendectomy Social History Household Members: Significant Other and Children Housing: House Alcohol intake: never Smoking Status: Never smoker Use of substances other than those prescribed or required for medical reasons: No Currently Displaying Signs/Symptoms of Drug Intoxication Withdrawal: No Have you been hit, kicked, punched, or otherwise hurt by someone within the past year? If so, by whom?: No Do you feel safe in your current relationship?: No Is there a partner from a previous relationship who is making you feel unsafe now?: No Are you made to feel afraid or neglected: No Advance Directives: No Advance Directives Information Provided: No Advance Directives on File: No Do you have thoughts of harming others: None Do you have a plan to hurt others: No Plan Recently lost weight without trying: No service: No Meds Allergies Allergy/AdvReac Type Severity Reaction Status Date / Time Penicillins [PENICILLINS] Allergy Severe INVOLUNTARY Verified 09/12/20 09:45 SPASMS Home Medications Medication Instructions Recorded Confirmed Type acetaminophen 650 mg PO Q4H PRN 09/12/20 09/12/20 History fludrocortisone 0.1 mg PO DAILY 09/12/20 09/12/20 History gabapentin 600 mg PO TID 09/12/20 09/12/20 History insulin aspart U-100 [Novolog 0 unit SUBCUT TID 09/12/20 09/12/20 History Flexpen U-100 Insulin] insulin glargine [Lantus Solostar 18 unit SUBCUT BEDTIME 09/12/20 09/12/20 History U-100 Insulin] ketorolac 1 drp OPHTHALMIC (EYE) QID 09/12/20 09/12/20 History lidocaine 1 patch TOPICAL DAILY 09/12/20 09/12/20 History metformin 1,000 mg PO BIDWM 09/12/20 09/12/20 History midodrine 10 mg PO TID 09/12/20 09/12/20 History pioglitazone 15 mg PO DAILY 09/12/20 09/12/20 History tramadol 50 mg PO BEDTIME 09/12/20 09/12/20 History fludrocortisone 0.1 mg tablet 0.1 mg PO DAILY 09/13/20 History Physical Exam Vital Signs and Narrative: Vital Signs: Last Vital Signs Temp 97.6 F 09/13/20 19:34 Pulse 92 09/13/20 19:51 Resp 18 09/13/20 22:09 BP 140/79 H 09/13/20 19:51 Pulse Ox 98 09/13/20 19:34 Body Mass Index 18.6 Neuro: Cranial nerves: Yes Normal hearing present Speech: No Abnormal speech present Results Labs Labs: Laboratory Tests 09/12/20 09/12/20 09/12/20 09:43 09:43 09:43 WBC 17.8 H RBC 3.77 L Hgb 10.4 L Hct 30.5 L MCV 80.9 MCH 27.6 MCHC 34.1 RDW 12.4 Plt Count 426 H MPV 9.5 Immature Gran % (Auto) 0.6 H Neut % (Auto) 85.3 H Lymph % (Auto) 7.8 L [place] % (Auto) 6.2 Eos % (Auto) 0.0 Baso % (Auto) 0.1 Lymph # (Auto) 1.4 [place] # (Auto) 1.1 Eos # (Auto) 0.0 Baso # (Auto) 0.0 Abs Immat Gran (auto) 0.11 H Absolute Neuts (auto) 15.2 H Absolute Nucleated RBC 0.000 Nucleated RBC % (auto) 0.0 PT 11.5 INR 1.0 Sodium 135 Potassium 3.4 Chloride 92 L Carbon Dioxide 26 Anion Gap 20 BUN 36 H Creatinine 1.02 Estim Creat Clear Calc 55.9 Estimated GFR 56 POC Glucose Random Glucose 337 H Lactic Acid Calcium 9.4 Magnesium 1.6 Total Bilirubin 0.6 Direct Bilirubin 0.2 AST 12 ALT 10 Alkaline Phosphatase 52 Total Protein 6.7 Albumin 3.9 Urine Color Urine Appearance Urine pH Ur Specific [place] Urine Protein Urine Glucose (UA) Urine Ketones Urine Blood Urine Nitrite Ur Leukocyte Esterase Urine RBC Urine WBC Urine WBC Clumps Ur Squamous Epith Cells Urine Bacteria Coronavirus (PCR) 09/12/20 09/12/20 09/12/20 11:55 14:46 16:20 WBC RBC Hgb Hct MCV MCH MCHC RDW Plt Count MPV Immature Gran % (Auto) Neut % (Auto) Lymph % (Auto) [place] % (Auto) Eos % (Auto) Baso % (Auto) Lymph # (Auto) [place] # (Auto) Eos # (Auto) Baso # (Auto) Abs Immat Gran (auto) Absolute Neuts (auto) Absolute Nucleated RBC Nucleated RBC % (auto) PT INR Sodium Potassium Chloride Carbon Dioxide Anion Gap BUN Creatinine Estim Creat Clear Calc Estimated GFR POC Glucose Random Glucose Lactic Acid 0.7 Calcium Magnesium Total Bilirubin Direct Bilirubin AST ALT Alkaline Phosphatase Total Protein Albumin Urine Color YELLOW Urine Appearance CLOUDY Urine pH 7.0 Ur Specific [place] 1.025 Urine Protein 3+ H Urine Glucose (UA) 500 H Urine Ketones 15 Urine Blood 1+ H Urine Nitrite NEG Ur Leukocyte Esterase NEG Urine RBC 0 Urine WBC 15-29 H Urine WBC Clumps NOTED Ur Squamous Epith Cells 1+ Urine Bacteria 3+ Coronavirus (PCR) NEGATIVE 09/12/20 09/12/20 09/13/20 16:27 20:51 05:43 WBC 14.6 H RBC 3.01 L D Hgb 8.4 L Hct 24.6 L MCV 81.7 MCH 27.9 MCHC 34.1 RDW 12.8 Plt Count 324 MPV 9.8 Immature Gran % (Auto) 0.6 H Neut % (Auto) 81.4 H Lymph % (Auto) 9.3 L [place] % (Auto) 8.4 Eos % (Auto) 0.1 Baso % (Auto) 0.2 Lymph # (Auto) 1.4 [place] # (Auto) 1.2 Eos # (Auto) 0.0 Baso # (Auto) 0.0 Abs Immat Gran (auto) 0.09 H Absolute Neuts (auto) 11.9 H Absolute Nucleated RBC 0.000 Nucleated RBC % (auto) 0.0 PT INR Sodium Potassium Chloride Carbon Dioxide Anion Gap BUN Creatinine Estim Creat Clear Calc Estimated GFR POC Glucose 253 H 169 H Random Glucose Lactic Acid Calcium Magnesium Total Bilirubin Direct Bilirubin AST ALT Alkaline Phosphatase Total Protein Albumin Urine Color Urine Appearance Urine pH Ur Specific [place] Urine Protein Urine Glucose (UA) Urine Ketones Urine Blood Urine Nitrite Ur Leukocyte Esterase Urine RBC Urine WBC Urine WBC Clumps Ur Squamous Epith Cells Urine Bacteria Coronavirus (PCR) 09/13/20 09/13/20 09/13/20 05:43 07:55 11:35 WBC RBC Hgb Hct MCV MCH MCHC RDW Plt Count MPV Immature Gran % (Auto) Neut % (Auto) Lymph % (Auto) [place] % (Auto) Eos % (Auto) Baso % (Auto) Lymph # (Auto) [place] # (Auto) Eos # (Auto) Baso # (Auto) Abs Immat Gran (auto) Absolute Neuts (auto) Absolute Nucleated RBC Nucleated RBC % (auto) PT INR Sodium 137 Potassium 3.1 L Chloride 101 Carbon Dioxide 26 Anion Gap 13 BUN 34 H Creatinine 0.78 Estim Creat Clear Calc 67.0 Estimated GFR > 60 POC Glucose 168 H 139 H Random Glucose 158 H D Lactic Acid Calcium 8.1 L Magnesium Total Bilirubin Direct Bilirubin AST ALT Alkaline Phosphatase Total Protein Albumin Urine Color Urine Appearance Urine pH Ur Specific [place] Urine Protein Urine Glucose (UA) Urine Ketones Urine Blood Urine Nitrite Ur Leukocyte Esterase Urine RBC Urine WBC Urine WBC Clumps Ur Squamous Epith Cells Urine Bacteria Coronavirus (PCR) 09/13/20 09/13/20 16:50 21:29 WBC RBC Hgb Hct MCV MCH MCHC RDW Plt Count MPV Immature Gran % (Auto) Neut % (Auto) Lymph % (Auto) [place] % (Auto) Eos % (Auto) Baso % (Auto) Lymph # (Auto) [place] # (Auto) Eos # (Auto) Baso # (Auto) Abs Immat Gran (auto) Absolute Neuts (auto) Absolute Nucleated RBC Nucleated RBC % (auto) PT INR Sodium Potassium Chloride Carbon Dioxide Anion Gap BUN Creatinine Estim Creat Clear Calc Estimated GFR POC Glucose 113 108 Random Glucose Lactic Acid Calcium Magnesium Total Bilirubin Direct Bilirubin AST ALT Alkaline Phosphatase Total Protein Albumin Urine Color Urine Appearance Urine pH Ur Specific [place] Urine Protein Urine Glucose (UA) Urine Ketones Urine Blood Urine Nitrite Ur Leukocyte Esterase Urine RBC Urine WBC Urine WBC Clumps Ur Squamous Epith Cells Urine Bacteria Coronavirus (PCR)
[2020-09-13] MEDS: Prochlorperazine Edisylate 10 MG/2 ML VIAL 5 MG IV (22:58)
[2020-09-14] VITALS (10 sets, daily range): BP systolic 152–210; BP diastolic 76–102; PULSE 90–94; RESP 18; TEMP 36.6–37.1; O2SAT 97–98; BMI 18.6
[2020-09-14 06:21] LABS: MANUAL DIFF FLAG NO
[2020-09-14 06:32] LABS: Basophils Percent Auto 0.2 % (0-2); Eosinophils Absolute Auto 0.2 X10*3/uL (0.0-0.4); Eosinophils Percent Auto 1.1 % (0-4); Hematocrit 28.4 % (37-47); Hemoglobin 9.9 g/dl (12.0-16.0); Imm Gran Abs Auto 0.06 X10*3/uL (0.00-0.03); Imm Gran Pct Auto 0.5 % (0.0-0.4); Lymphocytes Absolute Auto 1.4 X10*3/uL (1.2-4.9); Lymphocytes Percent Auto 10.4 % (20-40); Mean Corpuscular HGB Conc 34.9 g/dl (31.0-35.0); Mean Corpuscular Volume 80.2 fL (80-98); Mean Platelet Volume 9.7 fL (9.4-12.3); Monocytes Absolute Auto 1.1 X10*3/uL (0.1-1.2); Monocytes Percent Auto 8.3 % (2-11); Neutrophils Absolute Auto 10.6 X10*3/uL (2.0-8.3); Neutrophils Percent Auto 79.5 % (45-73); Platelet Count 343 X10*3/uL (160-400); Red Blood Count 3.54 X10*6/uL (4.20-5.50); Red Cell Distribution Width 12.5 % (11.0-16.0); White Blood Count 13.3 X10*3/uL (4.8-10.8)
[2020-09-14 06:58] LABS: Anion Gap 14 (12-20); Blood Urea Nitrogen 22 mg/dL (9-16); Carbon Dioxide 24 mmol/L (22-29); Chloride 100 mmol/L (96-108); Creatinine Clr Calc Pharmacy 81.6; Estimated Glomerular Filt Rate > 60; Glucose Fasting 112 mg/dL (60-99); Potassium 2.9 mmol/l (3.3-5.1); Sodium 135 mmol/L (135-145)
[2020-09-14 07:16] LABS: Vitamin D 25-OH Total 7.4 ng/mL (>30)
[2020-09-14 07:28] LABS: Glucose, Whole Blood 119 mg/dL (60-115)
[2020-09-14] MEDS: ondansetron HCL 4 MG/2 ML VIAL IVPUSH ×2 (08:04→16:18)
[2020-09-14] MEDS: Morphine Sulfate 4 MG/ML CARTRIDGE 2 MG IVPUSH ×3 (08:04→21:47)
[2020-09-14] MEDS: Potassium Chloride/H20 10 MEQ/100 ML PIGGYBACK 100 MEQ IV ×4 (08:11→11:36)
[2020-09-14] MEDS: Sodium Chloride 0.45 % 1,000 ML 100 ML IVCONT ×2 (08:13→18:14)
[2020-09-14 09:06] LABS: Vitamin B12 610 pg/mL (200-900)
--- NOTE | 2020-09-14 10:46 | P.PNIM_ITS ---
Subjective Subjective Date of Service: 09/14/20 Interval History: no appetite Cardiovascular Cardiovascular: Reports no additional cardiovascular complaints Respiratory Respiratory: Reports no additional respiratory complaints Physical Exam Vital Signs: Vital Signs: Vital Signs Temp Pulse Resp BP Pulse Ox 09/14/20 08:04 18 09/14/20 07:29 97.9 F 92 18 192/90 H 97 09/14/20 04:00 98.2 F 92 18 190/88 H 98 09/13/20 23:29 98.1 F 90 18 172/84 H 97 09/13/20 22:09 18 09/13/20 19:51 92 18 140/79 H 09/13/20 19:34 97.6 F 89 18 98 09/13/20 15:35 97.7 F 87 18 98 09/13/20 14:18 91 86/49 L 09/13/20 14:17 86 218/94 H 09/13/20 12:36 16 09/13/20 11:29 97.4 F 86 20 198/96 H 98 Body Mass Index 18.6 Constitutional : Alert, oriented, not in distress Neck : Normal inspection, Supple Cardiovascular : RRR, S1 S2, no lower extremity edema Respiratory : Good bilateral air entry, no crackles, wheezes or rhonchi Gastrointestinal: abdomen is soft and lax, mild tenderness with deep palpation all over her abdomen more noticed on the left lower quadrant, no guarding, no surgical signs Skin : Warm/Dry, No rash Neurological : Alert & oriented x3, No focal deficit Objective Data Current Medications Generic Name Dose Route Start Last Admin Trade Name Longq PRN Reason Stop Dose Admin Acetaminophen 650 mg 09/12/20 19:52 Acetaminophen 325 Mg Tablet PO Q4H PRN Pain (Scale Score 1-3) Fludrocortisone Acetate 0.1 mg 09/13/20 09:00 09/14/20 08:02 Fludrocortisone Acetate 0.1 Mg Tablet PO Not Given DAILY LILY Gabapentin 600 mg 09/12/20 21:00 09/14/20 08:02 Gabapentin 600 Mg Tablet PO Not Given TID LILY Levofloxacin 500 mg in 100 mls @ 100 mls/hr 09/13/20 15:00 09/13/20 18:27 Levaquin IV Infused Q24H LILY Infusion Sodium Chloride 1,000 mls @ 100 mls/hr 09/12/20 19:52 09/14/20 08:13 IVCONT 100 mls/hr .Q10H LILY Administration Potassium Chloride 10 meq in 100 mls @ 100 mls/hr 09/14/20 08:00 09/14/20 10:27 IV 09/14/20 11:59 100 mls/hr Q1H LILY Administration Insulin Glargine 10 unit 09/12/20 21:00 09/13/20 22:13 Insulin Glargine,Hum.Rec.Anlog 100 Unit/Ml 10 Ml Vial SUBCUT Not Given BEDTIME [facility] Insulin Human Lispro 0 unit 09/12/20 21:00 09/14/20 08:01 Insulin Lispro 100 Unit/Ml 3 Ml Vial SUBCUT Not Given QIDACHS [facility] Protocol Ketorolac Tromethamine 1 drop 09/12/20 17:00 09/14/20 08:02 Ketorolac Tromethamine 0.5% Op 5 Ml Drpbtl EYE-BOTH Not Given QID [facility] Midodrine 10 mg 09/12/20 21:00 09/14/20 08:02 Midodrine Hcl 10 Mg Tablet PO Not Given TID [facility] Morphine Sulfate 2 mg 09/12/20 19:52 09/14/20 08:04 Morphine Sulfate 4 Mg/Ml Cartridge IVPUSH 2 mg Q4H PRN Administration Pain, Severe (Pain Scale 7-10) Ondansetron HCl 4 mg 09/12/20 19:52 09/14/20 08:04 Ondansetron Hcl 4 Mg/2 Ml Vial IVPUSH 4 mg Q8H PRN Administration Nausea and Vomiting Pharmacy Consult 1 each 09/12/20 15:51 Consult Rx Perform Med Rec MISCELLANE ONCE PRN Consult order Pioglitazone HCl 15 mg 09/13/20 09:00 09/14/20 08:02 Pioglitazone Hcl 15 Mg Tablet PO Not Given DAILY [facility] Polyethylene Glycol 17 gm 09/13/20 17:15 09/14/20 08:02 Polyethylene Glycol 3350 17 Gm Powd.Pack PO Not Given DAILY [facility] Sertraline HCl 50 mg 09/13/20 09:00 09/14/20 08:02 Sertraline Hcl 50 Mg Tablet PO Not Given DAILY [facility] Sodium Chloride 3 ml 09/13/20 00:00 09/14/20 08:01 0.9 % Sodium Chloride Flush 3 Ml Syringe IVFLUSH Not Given QSHIFT [facility] Tamsulosin HCl 0.4 mg 09/14/20 09:00 09/14/20 09:21 Tamsulosin Hcl 0.4 Mg Capsule PO Not Given DAILY [facility] Tramadol HCl 50 mg 09/12/20 21:00 Tramadol Hcl 50 Mg Tablet PO BEDTIME [facility] Labs CBC & Chem 7: 09/14/20 05:54 09/14/20 05:54 Microbiology Microbiology Results: Microbiology 09/12/20 12:02 Blood - Venous Blood Culture - Preliminary No growth after 24 hours. 09/12/20 11:55 Blood - Venous Blood Culture - Preliminary No growth after 24 hours. 09/12/20 14:46 Urine clean catch - Clean Catch Midstream Urine Culture - Final Assessment and Plan (1) UTI (urinary tract infection): Status: Acute (2) Intractable abdominal pain: Status: Acute (3) Sepsis: Status: Acute (4) Nausea & vomiting: Status: Acute (5) Acute hyperglycemia: Status: Acute (6) Diabetes mellitus, insulin dependent (IDDM), controlled: Status: Acute Assessment and Plan: a 60 years old lady with PMH of HTN, diabetes, depression who presents to the hospital with 3 days history of intractable nausea and vomiting. Intractable nausea and vomiting likely secondary gastroparesis dc levaquin, cultures negative plan for GES once able to tolerate po, then reglan if positive DM insulin air fluid level in bladder appreciated, mild, likely due to instrumentation in nov 2019, no further work up required recommended flomax for retention orthostatic hypotnesion with supine htn florinef, hold midodrine due to severe supine htn
[2020-09-14 11:36] LABS: Glucose, Whole Blood 124 mg/dL (60-115)
--- NOTE | 2020-09-14 13:55 | MHC.CM.PN ---
The goal for dc continues to be to return home with no anticipated need for services. patient is still experiencing N/V and does not appear medically ready for dc. CM will continue to follow and adjust plan as needed.
[2020-09-14 16:48] LABS: Glucose, Whole Blood 126 mg/dL (60-115)
[2020-09-14 19:57] LABS: Glucose, Whole Blood 119 mg/dL (60-115)
[2020-09-14] MEDS: 0.9 % Sodium Chloride Flush 3 ML SYRINGE IVFLUSH (21:48)
[2020-09-15] MEDS: ondansetron HCL 4 MG/2 ML VIAL IVPUSH (00:52)
[2020-09-15 03:41] VITALS: BP 220/86; PULSE 89; RESP 16; TEMP 36.2; O2SAT 98
[2020-09-15] MEDS: Sodium Chloride 0.45 % 1,000 ML 100 ML IVCONT ×2 (04:43→14:00)
[2020-09-15 06:00] VITALS: BMI 20.5
[2020-09-15 06:18] LABS: MANUAL DIFF FLAG NO
[2020-09-15 06:31] LABS: Basophils Percent Auto 0.2 % (0-2); Eosinophils Absolute Auto 0.2 X10*3/uL (0.0-0.4); Eosinophils Percent Auto 2.1 % (0-4); Hematocrit 28.7 % (37-47); Hemoglobin 9.8 g/dl (12.0-16.0); Imm Gran Abs Auto 0.04 X10*3/uL (0.00-0.03); Imm Gran Pct Auto 0.5 % (0.0-0.4); Lymphocytes Absolute Auto 1.6 X10*3/uL (1.2-4.9); Lymphocytes Percent Auto 18.2 % (20-40); Mean Corpuscular HGB Conc 34.1 g/dl (31.0-35.0); Mean Corpuscular Hemoglobin 27.6 pg (27.0-33.0); Mean Corpuscular Volume 80.8 fL (80-98); Mean Platelet Volume 9.6 fL (9.4-12.3); Monocytes Absolute Auto 0.6 X10*3/uL (0.1-1.2); Monocytes Percent Auto 7.3 % (2-11); Neutrophils Absolute Auto 6.3 X10*3/uL (2.0-8.3); Neutrophils Percent Auto 71.7 % (45-73); Platelet Count 355 X10*3/uL (160-400); Red Blood Count 3.55 X10*6/uL (4.20-5.50); Red Cell Distribution Width 12.4 % (11.0-16.0); White Blood Count 8.8 X10*3/uL (4.8-10.8)
[2020-09-15 07:02] LABS: Anion Gap 17 (12-20); Blood Urea Nitrogen 20 mg/dL (9-16); Calcium 8.1 mg/dL (8.4-10.2); Carbon Dioxide 22 mmol/L (22-29); Chloride 100 mmol/L (96-108); Creatinine Clr Calc Pharmacy 91.2; Estimated Glomerular Filt Rate > 60; Glucose Fasting 135 mg/dL (60-99); Potassium 3.6 mmol/l (3.3-5.1); Sodium 135 mmol/L (135-145)
[2020-09-15 07:47] LABS: Glucose, Whole Blood 137 mg/dL (60-115)
[2020-09-15 08:00] VITALS: BP 182/100; PULSE 88; RESP 18; TEMP 36.6; O2SAT 99
[2020-09-15] MEDS: Fludrocortisone Acetate 0.1 MG TABLET PO (09:01)
[2020-09-15 11:33] LABS: Glucose, Whole Blood 154 mg/dL (60-115)
[2020-09-15 12:00] VITALS: BP 168/78; PULSE 88; RESP 18; TEMP 36.6; O2SAT 99
--- NOTE | 2020-09-15 15:44 | P.PNIM_ITS ---
Subjective Subjective Date of Service: 09/15/20 Interval History: patient complaining of persistent nausea tried some clear liquid this morning and kept it down so far Also complaining of abdominal discomfort. Review of Systems General no headache , no dizziness, no fever. CVS no chest pain, no palpitation. Respiratory no cough, no respiratory distress. Physical Exam Vital Signs: Vital Signs: Vital Signs Temp Pulse Resp BP Pulse Ox 09/15/20 12:00 97.9 F 88 18 168/78 H 99 09/15/20 08:00 97.9 F 88 18 182/100 H 99 09/15/20 03:41 97.2 F 89 16 220/86 H 98 09/14/20 21:47 18 09/14/20 19:28 98.2 F 91 18 190/100 H 98 Body Mass Index 20.5 General patient resting comfortably, no acute distress. Neck is supple no JVD. CVS regular rate rhythm, Respiratory lungs clear to auscultation, no respiratory distress. Gastrointestinal abdomen soft, mild epigastric tenderness with palpation, bowel sounds audible. Extremities no clubbing cyanosis or edema. Neuro nonfocal Skin no rash Objective Data Current Medications Generic Name Dose Route Start Last Admin Trade Name Freq PRN Reason Stop Dose Admin Acetaminophen 650 mg 09/12/20 19:52 Acetaminophen 325 Mg Tablet PO Q4H PRN Pain (Scale Score 1-3) Fludrocortisone Acetate 0.1 mg 09/13/20 09:00 09/15/20 09:01 Fludrocortisone Acetate 0.1 Mg Tablet PO 0.1 mg DAILY LILY Administration Gabapentin 600 mg 09/12/20 21:00 09/15/20 14:14 Gabapentin 600 Mg Tablet PO Not Given TID [facility] Sodium Chloride 1,000 mls @ 100 mls/hr 09/12/20 19:52 09/15/20 14:00 IVCONT 100 mls/hr .Q10H LILY Administration Insulin Glargine 10 unit 09/12/20 21:00 09/14/20 21:52 Insulin Glargine,Hum.Rec.Anlog 100 Unit/Ml 10 Ml Vial SUBCUT Not Given BEDTIME [facility] Insulin Human Lispro 0 unit 09/12/20 21:00 09/15/20 11:58 Insulin Lispro 100 Unit/Ml 3 Ml Vial SUBCUT Not Given QIDACHS [facility] Protocol Ketorolac Tromethamine 1 drop 09/12/20 17:00 09/15/20 13:54 Ketorolac Tromethamine 0.5% Op 5 Ml Drpbtl EYE-BOTH 1 drop QID LILY Administration Morphine Sulfate 2 mg 09/12/20 19:52 09/14/20 21:47 Morphine Sulfate 4 Mg/Ml Cartridge IVPUSH 2 mg Q4H PRN Administration Pain, Severe (Pain Scale 7-10) Ondansetron HCl 4 mg 09/12/20 19:52 09/15/20 00:52 Ondansetron Hcl 4 Mg/2 Ml Vial IVPUSH 4 mg Q8H PRN Administration Nausea and Vomiting Pharmacy Consult 1 each 09/12/20 15:51 Consult Rx Perform Med Rec MISCELLANE ONCE PRN Consult order Pioglitazone HCl 15 mg 09/13/20 09:00 09/15/20 08:57 Pioglitazone Hcl 15 Mg Tablet PO Not Given DAILY [facility] Polyethylene Glycol 17 gm 09/13/20 17:15 09/15/20 08:57 Polyethylene Glycol 3350 17 Gm Powd.Pack PO Not Given DAILY [facility] Sertraline HCl 50 mg 09/13/20 09:00 09/15/20 08:58 Sertraline Hcl 50 Mg Tablet PO Not Given DAILY [facility] Sodium Chloride 3 ml 09/13/20 00:00 09/15/20 08:58 0.9 % Sodium Chloride Flush 3 Ml Syringe IVFLUSH Not Given QSHIFT [facility] Tamsulosin HCl 0.4 mg 09/14/20 09:00 09/15/20 09:03 Tamsulosin Hcl 0.4 Mg Capsule PO Not Given DAILY [facility] Tramadol HCl 50 mg 09/12/20 21:00 Tramadol Hcl 50 Mg Tablet PO BEDTIME [facility] Labs CBC & Chem 7: 09/15/20 05:36 09/15/20 05:36 Microbiology Microbiology Results: Microbiology 09/12/20 12:02 Blood - Venous Blood Culture - Preliminary No growth after 48 hours. 09/12/20 11:55 Blood - Venous Blood Culture - Preliminary No growth after 48 hours. 09/12/20 14:46 Urine clean catch - Clean Catch Midstream Urine Culture - Final Assessment and Plan (1) Intractable abdominal pain: Status: Acute (2) Diabetes mellitus, insulin dependent (IDDM), controlled: Status: Acute (3) Orthostatic hypotension: Status: Acute Assessment and Plan: 60 years old lady with PMH of HTN, diabetes, depression who presents to the hospital with 3 days history of intractable nausea and vomiting. Intractable nausea and vomiting less nauseous this morning symptoms likely secondary to gastroparesis will start reglan q.6 hours as needed, placed on IV Pepcid twice daily, change IV fluid to normal saline 5, follow labs and advance diet as tolerated. DM blood sugars stable will discontinue Lantus to avoid hypoglycemia with decreased by mouth intake and continue insulin sliding scale air fluid level in bladder appreciated, mild, likely due to instrumentation in nov 2019, no further work up required recommended flomax for retention orthostatic hypotnesion with supine htn continue florinef, hold midodrine due to severe supine htn.
[2020-09-15 16:00] VITALS: BP 200/90; PULSE 89; RESP 16; TEMP 36.6; O2SAT 98
[2020-09-15] MEDS: 0.9 % Sodium Chloride Flush 3 ML SYRINGE IVFLUSH (16:02)
[2020-09-15 16:51] LABS: Glucose, Whole Blood 179 mg/dL (60-115)
[2020-09-15] MEDS: Metoclopramide HCl 10 MG/2 ML VIAL 5 MG IVPUSH (18:14)
[2020-09-15] MEDS: Morphine Sulfate 4 MG/ML CARTRIDGE 2 MG IVPUSH ×2 (18:14→22:25)
[2020-09-15 19:40] VITALS: BP 180/82; PULSE 88; RESP 20; TEMP 37.6; O2SAT 98
[2020-09-15 21:30] LABS: Glucose, Whole Blood 217 mg/dL (60-115)
[2020-09-15 23:46] VITALS: BP 178/80; PULSE 86; RESP 18; TEMP 37.1; O2SAT 98
[2020-09-16] VITALS (8 sets, daily range): BP systolic 104–180; BP diastolic 51–80; PULSE 77–98; RESP 16–20; TEMP 36.6–37; O2SAT 96–99; BMI 19.5
[2020-09-16] MEDS: Metoclopramide HCl 10 MG/2 ML VIAL 5 MG IVPUSH ×3 (00:25→18:03)
[2020-09-16] MEDS: 0.9 % Sodium Chloride Flush 3 ML SYRINGE IVFLUSH ×2 (00:25→16:06)
[2020-09-16 07:50] LABS: Glucose, Whole Blood 171 mg/dL (60-115)
[2020-09-16] MEDS: Insulin Lispro 100 UNIT/ML 3 ML VIAL SUBCUT ×3 (08:15→21:25)
[2020-09-16] MEDS: Famotidine/PF 20 MG/2 ML VIAL IVPUSH ×2 (08:16→21:25)
[2020-09-16] MEDS: Sodium Chloride 0.45 % 1,000 ML 80 ML IVCONT (08:16)
[2020-09-16] MEDS: Sertraline HCL 50 MG TABLET PO (08:17)
[2020-09-16] MEDS: Fludrocortisone Acetate 0.1 MG TABLET PO (08:17)
[2020-09-16] MEDS: Morphine Sulfate 4 MG/ML CARTRIDGE 2 MG IVPUSH ×2 (08:18→18:03)
[2020-09-16 11:40] LABS: Glucose, Whole Blood 181 mg/dL (60-115)
--- NOTE | 2020-09-16 11:51 | P.CDIC_ITS ---
CDI Concurrent Query Service Date: 09/16/20 Documentation Clarification: Please clarify if you are treating a proba ble/suspected/likely or confirmed: Sepsis due to UTI txt Sepsis due to UTI rule out Urinary tract infection Please specify if known Provider Response: Other Other Diagnosis: no sepsis /no UTI PLEASE DO NOT DELETE/MODIFY EXISTING CONTENT Additional information is needed in order to code to the highest accuracy and appropriate Severity of Illness (SOI). Please clarify the information noted below in your progress notes and discharge summary. Risk Factors/Clinical Indicators/Treatments Nausea, vomiting, diarrhea - intra-abdominal infection DX: UTI Temp 97.6 hr 92 rr 16 la 0.7 WBC 17.8 most likely related to n/v/d/. H&P: Assessment/plan: Sepsis PN: 09/13 & 09/14 - Sepsis CDS: Gillian Coronado CCS, [facility]IS Contact Number: [phone] Please Review the information above and exercise your independent professional judgment in responding to the query. If you concur, pleas document in the PROGRESS NOTES and DISCHARGE SUMMARY. If you do not agree with the query, please document in the query above. THIS QUERY IS PART OF THE PERMANENT MEDICAL RECORD
--- NOTE | 2020-09-16 11:54 | MHC.CLN ---
F/U DIET ADVANCED TO F/L WILL RE-START NUTRITION SUPPLEMENT TO INCREASE KCALS NOTED REGLAN ADDED FOLLOWING
--- NOTE | 2020-09-16 13:37 | MHC.CM.PN ---
Patient's goal for dc is to return home. Patient's diet has been advanced to F/L and Patient required both IV Pepcid,and IV Reglan today. IV Morphine was also given. CM will continue to follow for dc planning and the possibility for the need to adjust the dc plan.
--- NOTE | 2020-09-16 14:23 | P.PNIM_ITS ---
Subjective Subjective Date of Service: 09/16/20 Interval History: patient feeling better today with less nausea keeping fluids down, patient refusing to ambulate since she has history of orthostatic hypotension and gets dizzy with ambulation hold on to objects at home for ambulation. Review of Systems General no headache , mild dizziness with sitting. CVS no chest pain, no palpitation. Respiratory no cough no sputum production no respiratory distress. Gastrointestinal no nausea ,no vomiting, c/o mild abdominal discomfort/ sore ness Physical Exam Vital Signs: Vital Signs: Vital Signs Temp Pulse Resp BP Pulse Ox 09/16/20 11:46 97.9 F 77 18 140/68 H 96 09/16/20 08:14 146/68 H 09/16/20 07:59 98.6 F 88 20 180/80 H 99 09/16/20 03:14 98 F 98 18 130/58 L 97 09/15/20 23:46 98.7 F 86 18 178/80 H 98 09/15/20 19:40 99.6 F 88 20 180/82 H 98 09/15/20 16:00 97.9 F 89 16 200/90 H 98 Body Mass Index 19.5 General patient resting comfortably, no acute distress. Neck is supple no JVD. CVS regular rate rhythm, Respiratory lungs clear to auscultation, no respiratory distress. Gastrointestinal abdomen soft, nontender, bowel sounds audible. Extremities no clubbing cyanosis or edema. Neuro nonfocal Skin no rash Objective Data Current Medications Generic Name Dose Route Start Last Admin Trade Name Freq PRN Reason Stop Dose Admin Acetaminophen 650 mg 09/12/20 19:52 Acetaminophen 325 Mg Tablet PO Q4H PRN Pain (Scale Score 1-3) Famotidine 20 mg 09/15/20 21:00 09/16/20 08:16 Famotidine/Pf 20 Mg/2 Ml Vial IVPUSH 20 mg BID LILY Administration Fludrocortisone Acetate 0.1 mg 09/13/20 09:00 09/16/20 08:17 Fludrocortisone Acetate 0.1 Mg Tablet PO 0.1 mg DAILY LILY Administration Gabapentin 600 mg 09/12/20 21:00 09/16/20 14:08 Gabapentin 600 Mg Tablet PO Not Given TID [facility] Insulin Human Lispro 0 unit 09/12/20 21:00 09/16/20 11:50 Insulin Lispro 100 Unit/Ml 3 Ml Vial SUBCUT 2 unit QIDACHS LILY Administration Protocol Ketorolac Tromethamine 1 drop 09/12/20 17:00 09/16/20 12:01 Ketorolac Tromethamine 0.5% Op 5 Ml Drpbtl EYE-BOTH 1 drop QID LILY Administration Metoclopramide HCl 5 mg 09/15/20 15:51 09/16/20 08:17 Metoclopramide Hcl 10 Mg/2 Ml Vial IVPUSH 5 mg Q6H PRN Administration Nausea Morphine Sulfate 2 mg 09/12/20 19:52 09/16/20 08:18 Morphine Sulfate 4 Mg/Ml Cartridge IVPUSH 2 mg Q4H PRN Administration Pain, Severe (Pain Scale 7-10) Pharmacy Consult 1 each 09/12/20 15:51 Consult Rx Perform Med Rec MISCELLANE ONCE PRN Consult order Pioglitazone HCl 15 mg 09/13/20 09:00 09/16/20 08:17 Pioglitazone Hcl 15 Mg Tablet PO 15 mg DAILY LILY Administration Polyethylene Glycol 17 gm 09/13/20 17:15 09/16/20 08:18 Polyethylene Glycol 3350 17 Gm Powd.Pack PO Not Given DAILY [facility] Sertraline HCl 50 mg 09/13/20 09:00 09/16/20 08:17 Sertraline Hcl 50 Mg Tablet PO 50 mg DAILY [facility] Administration Sodium Chloride 3 ml 09/13/20 00:00 09/16/20 08:16 0.9 % Sodium Chloride Flush 3 Ml Syringe IVFLUSH Not Given QSHIFT [facility] Tamsulosin HCl 0.4 mg 09/14/20 09:00 09/16/20 08:18 Tamsulosin Hcl 0.4 Mg Capsule PO Not Given DAILY [facility] Tramadol HCl 50 mg 09/12/20 21:00 Tramadol Hcl 50 Mg Tablet PO BEDTIME [facility] Labs CBC & Chem 7: 09/15/20 05:36 09/15/20 05:36 Microbiology Microbiology Results: Microbiology 09/12/20 12:02 Blood - Venous Blood Culture - Preliminary No growth after 48 hours. 09/12/20 11:55 Blood - Venous Blood Culture - Preliminary No growth after 48 hours. 09/12/20 14:46 Urine clean catch - Clean Catch Midstream Urine Culture - Final Assessment and Plan (1) Intractable abdominal pain: Status: Acute (2) Diabetes mellitus, insulin dependent (IDDM), controlled: Status: Acute (3) Orthostatic hypotension: Status: Acute Assessment and Plan: 60 years old lady with PMH of HTN, diabetes, depression who presents to the hospital with 3 days history of intractable nausea and vomiting. Intractable nausea , vomiting and abdominal pain. nausea , vomiting resolved, will advance diet, symptoms likely secondary to gastroparesis, case discussed with Dr. Schulz she recommend GES study as outpatient if found to have gastroparesis then will be placed on scheduled reglan. 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 DM blood sugars rising, Lantus on hold, continue insulin sliding scale,if tolerate by mouth diet will resume Lantus , continue actos. air fluid level in bladder as per Urology likely due to instrumentation in nov 2019, no further work up required,cont. flomax for retention orthostatic hypotnesion with supine htn continue florinef, hold midodrine due to severe supine htn and since patient is mostly in bed. leukocytosis resolved, no evidence of sepsis, no UTI, leukocytosis likely stress induced.
[2020-09-16 16:47] LABS: Glucose, Whole Blood 129 mg/dL (60-115)
[2020-09-16 21:21] LABS: Glucose, Whole Blood 192 mg/dL (60-115)
[2020-09-17] MEDS: 0.9 % Sodium Chloride Flush 3 ML SYRINGE IVFLUSH ×2 (00:32→07:39)
[2020-09-17 04:00] VITALS: BP 170/72; PULSE 88; RESP 18; TEMP 36.7; O2SAT 98
[2020-09-17 06:00] VITALS: BMI 19.1
[2020-09-17 06:36] VITALS: BP 146/64
[2020-09-17 07:23] LABS: Glucose, Whole Blood 178 mg/dL (60-115)
[2020-09-17] MEDS: Insulin Lispro 100 UNIT/ML 3 ML VIAL SUBCUT ×2 (07:39→12:15)
[2020-09-17 08:00] VITALS: BP 149/67; PULSE 85; RESP 18; TEMP 37.2; O2SAT 99
[2020-09-17 08:01] LABS: Anion Gap 12 (12-20); Blood Urea Nitrogen 16 mg/dL (9-16); Carbon Dioxide 27 mmol/L (22-29); Chloride 99 mmol/L (96-108); Creatinine Clr Calc Pharmacy 81.2; Estimated Glomerular Filt Rate > 60; Glucose Random 165 mg/dL (60-115); Potassium 3.2 mmol/l (3.3-5.1); Sodium 135 mmol/L (135-145)
[2020-09-17] MEDS: Tamsulosin HCL 0.4 MG CAPSULE PO (08:39)
[2020-09-17] MEDS: Potassium Chloride ER 20 MEQ TAB.ER.PRT PO (08:39)
[2020-09-17] MEDS: Sertraline HCL 50 MG TABLET PO (08:39)
[2020-09-17] MEDS: Fludrocortisone Acetate 0.1 MG TABLET PO (08:39)
[2020-09-17] MEDS: polyethylene glycoL 3350 17 GM POWD.PACK PO (08:40)
[2020-09-17] MEDS: Famotidine/PF 20 MG/2 ML VIAL IVPUSH (08:41)
[2020-09-17 12:00] VITALS: BP 118/81; PULSE 87; RESP 18; TEMP 36.6; O2SAT 96
[2020-09-17 12:13] LABS: Glucose, Whole Blood 209 mg/dL (60-115)
[2020-09-17 13:56] VITALS: BP 151/71; PULSE 86; RESP 18; TEMP 36.4; O2SAT 99
--- NOTE | 2020-09-17 14:24 | MHC.CM.PN ---
CM met with pt to discuss her concerns related to DC. Pt reports she was hoping to be able to go to classes related to her diabetes. She reports this is not a new diagnosis but she is worried since this event. CM explained that typically a visiting nurse is arranged for post hospital DM teachings however pt was not interested in one. CM explained the pt could contact her PCP office or insurance company to be connected with a nurse CM or have a VNA set up by her PCP office if she decides she wants one later. Pt reports she initially thought she should discharge on Saturday so that she could research these things and asked if there was somewhere she could get information. CM explained there is information on the internet around DM. CM also explained there are no classes that t/w is familiar with related to DM, however if there were classes they would likely be canceled at this time due to Covid 19. Pt reports when the MD told her this morning that she may be discharged today she was surprised and said she would go tomorrow but later decided she would rather be home. pt reports the pain has improved and she feels better overall. Pts S/O entered the room during discussion and pt told her she would be going home today. Pts partner expressed no concerns related to DC except that she had driven her truck and the pt is unable to get in and out of it. Pts partner went home to get the car. Pt will discharge home today with no new services pt has arranged transportation
--- NOTE | 2020-09-17 14:50 | PM.DS ---
DS: Providers Provider Date of admission: 09/12/20 17:09 Primary care physician: Scott Patrick. Consults: 09/12/20 19:52 Consult to Gastroenterology [place]ine Consulting [place] [facility] Reason for consultation: intractable nausea and vomiting, stomach lesion for your kind evaluation Consult to Physician Routine Consulting Provider: [facility] Reason for consultation: intractable nausea and vomiting, gastric lesion for your kind eval 09/13/20 11:40 Consult to Urology Routine Consulting Provider: Michael Maldonado Reason for consultation: air in bladder, suprapubic pain, no recent instrumentation DS: Diagnosis Discharge Diagnosis (1) Intractable abdominal pain: Status: Acute (2) Diabetes mellitus, insulin dependent (IDDM), controlled: Status: Acute (3) Orthostatic hypotension: Status: Acute DS: Summary Hospital Course Hospital Course: 60 years old lady with PMH of HTN, diabetes, depression who presents to the hospital with 3 days history of intractable nausea and vomiting. she was doing well until when she was supposed to come to the GI lab for what seems like barium swallow evaluation as part of her workup with Dr. Schulz for gastric lesion. That morning she felt nauseous and started to vomit. She continued to do that over the last 2 days and was not able to keep much down her stomach. She denies any fever, chills, palpitation, shortness of breath, cough. She reports her urine turned dark in color and she noticed some black vomitus. Reported generalized abdominal pain. In the emergency CT scan the abdomen was concerning for stomach lesion and air in the bladder. Urinalysis showing bacteria, white blood cells but negative nitrate. Admitted for further evaluation treatment PMHx Depression Diabetes mellitus, insulin dependent (IDDM), controlled HTN (hypertension) Intractable nausea , vomiting and abdominal pain. all symptoms of nausea, vomiting and abdominal pain resolved, symptoms were likely secondary to gastroparesis, case discussed with Dr. Schulz she recommend GES study as outpatient if found to have gastroparesis then will be placed on scheduled reglan. patient tolerating diabetic diet and taking pills with no issues. 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 Strongly recommend patient to have outpatient follow-up with Dr. Schulz. recommend to continue all other home medication. DM blood sugars is stable recommend to resume Lantus , NovoLog insulin and metformin patient says she is not on Actos at home, advised to follow-up with endocrinology. air fluid level in bladder as per Urology likely due to instrumentation in nov 2019, no further work up required,cont. flomax for retention. orthostatic hypotnesion with supine htn continue florinef, Patient noted to have severe supine htn therefore midodrine 10 mg t.i.d. has been discontinued advised to follow-up with primary care physician and if noted to have low blood pressure then can be placed on low-dose midodrine. leukocytosis resolved, no evidence of sepsis, no UTI, leukocytosis likely were stress induced. Time Spent with Patient Time attestation: Total time spent providing and/or coordinating discharge services: Physical Exam Vital Signs: Vital Signs: Vital Signs Temp Pulse Resp BP Pulse Ox 09/17/20 13:56 97.6 F 86 18 151/71 H 99 09/17/20 12:00 97.9 F 87 18 118/81 96 09/17/20 08:00 98.9 F 85 18 149/67 H 99 09/17/20 06:36 146/64 H 09/17/20 04:00 98.0 F 88 18 170/72 H 98 09/16/20 23:47 98.2 F 89 18 104/51 L 99 09/16/20 19:37 97.9 F 84 16 142/66 H 97 09/16/20 18:03 18 09/16/20 16:00 98.3 F 78 16 142/64 H 98 Body Mass Index 19.1 General patient resting comfortably in no acute distress. Neck is supple no JVD. CVS regular rate rhythm, Respiratory lungs clear to auscultation, no respiratory distress, no wheeze, no rhonchi. Gastrointestinal abdomen soft, nontender, bowel sounds audible, no guarding , no rigidity. Extremities no clubbing cyanosis or edema. Neuro nonfocal patient moving all 4 extremity speech clear. Skin no rash DS: Data Data Completed and Pending Labs on day of discharge: Labs from last 24 hours 09/17/20 09/17/20 09/17/20 12:07 07:12 06:23 Sodium 135 Potassium 3.2 L Chloride 99 Carbon Dioxide 27 Anion Gap 12 BUN 16 Creatinine 0.66 Estim Creat Clear Calc 81.2 Estimated GFR > 60 POC Glucose 209 H 178 H Random Glucose 165 H Calcium 8.0 L 09/16/20 09/16/20 21:03 16:43 Sodium Potassium Chloride Carbon Dioxide Anion Gap BUN Creatinine Estim Creat Clear Calc Estimated GFR POC Glucose 192 H 129 H Random Glucose Calcium Discharge Plan Discharge Patient Disposition: Home, Self-Care Referrals: Scott Patrick MD [Primary Care Provider] - Discharge Medications: New polyethylene glycol 3350 17 gram Powder In Packet 17 g PO DAILY Qty: 30 RF: 0 Continued sertraline 50 mg tablet 50 mg PO DAILY Qty: 30 RF: 4 acetaminophen 325 mg Tablet 650 mg PO Q4H PRN (Reason: Pain (Scale Score 1-3)) RF: 0 gabapentin 600 mg Tablet 600 mg PO TID RF: 0 tramadol 50 mg Tablet 50 mg PO BEDTIME RF: 0 ketorolac 0.5 % Drops 1 drp ophthalmic (eye) QID RF: 0 lidocaine 5 % Adhesive Patch,Medicated 1 patch TOPICAL DAILY RF: 0 metformin 500 mg Tablet Extended Release 24 Hr 1,000 mg PO BIDWM RF: 0 fludrocortisone 0.1 mg Tablet 0.1 mg PO DAILY RF: 0 insulin aspart U-100 [Novolog Flexpen U-100 Insulin] 100 unit/mL (3 mL) Insulin Pen 0 unit SUBCUT TID RF: 0 Lantus Solostar U-100 Insulin 100 unit/mL (3 mL) Insulin Pen 18 unit SUBCUT BEDTIME RF: 0 Discontinued fludrocortisone 0.1 mg tablet 0.1 mg PO DAILY RF: 0 pioglitazone 15 mg Tablet 15 mg PO DAILY RF: 0 midodrine 10 mg Tablet 10 mg PO TID RF: 0 Discharge Orders: Discharge Order (Routine); Ordered 09/17/20 Ordered By: Scott Ocasio Diet: diabetic diet Activity on Discharge: As tolerated Visit Report Forms: Patient Portal Discharge page Care Plan Goals: follow up with Gastroenterology Neurology and PCP Health Concerns: check blood sugar closely and follow diabetic diet,stop midorin 10 mg 3 times a day and resume if prescribed by PCP/Neurology. get up slowly from standing position sitter at the edge of the bed prior to standing. Plan of Treatment: outpatient follow-up with primary care physician in 1 week
--- NOTE | 2020-09-17 15:47 | PC.NURSE ---
Late entry: 1350 - This RN found pt sitting on the floor in her room, stating that she slipped out of bed while trying to untangle her call lewis. Pt reports no injuries, VSS. This RN made the MD aware as well as the nursing accounting supervisor. Pt bed alarm on and functioning, high fall precautions in place.
== END 2020-09-17 15:45 | disposition home or self-care (01) | DRG 48 ==
LOC: HO.ED 16:19 → HO.IMC 18:30
PROVIDERS: Internal Medicine; Internal Medicine Gastroenterology; Physician Assistant Medical; Admitting Provider Student in an Organized Health Care Education/Training Program; Emergency Provider Internal Medicine; PCP Family Medicine; Visit Provider Hospitalist
DX: E11.43 Type 2 diabetes mellitus with diabetic autonomic (poly)neuropathy (principal); E11.65 Type 2 diabetes mellitus with hyperglycemia; K31.84 Gastroparesis; E11.42 Type 2 diabetes mellitus with diabetic polyneuropathy; I95.1 Orthostatic hypotension; I10 Essential (primary) hypertension; D72.829 Elevated white blood cell count, unspecified; K31.9 Disease of stomach and duodenum, unspecified; F32.9 Major depressive disorder, single episode, unspecified; Z20.828 Contact with and (suspected) exposure to other viral communicable diseases; Z79.4 Long term (current) use of insulin; Z88.0 Allergy status to penicillin; Z79.891 Long term (current) use of opiate analgesic; Z79.899 Other long term (current) drug therapy
CPT/HCPCS: 36415; 71046; 74177; 80048; 80076; 81001; 81003; 82306; 82607; 82746; 82947; 83605; 83735; 84134; 85025; 85610; 87040; 87086; 87635; 96365; 96375; 96376; 99285; 99291; J1885; J1956; J2270; J2405; J2765

== ENCOUNTER 2021-01-27 08:28 | Outpatient (REF) | payer OTHER, SELFPAY ==
[2021-01-27 11:53] LABS: TSH reflex Free T4 1.73 uIU/mL (0.32-4.0)
[2021-01-27 11:56] LABS: Alanine Aminotransferase 21 U/L (0-31); Albumin Level 3.6 g/dL (3.5-5.0); Alkaline Phosphatase 105 U/L (39-117); Anion Gap 11 (12-20); Aspartate Amino Transferase 17 U/L (5-31); Bilirubin Total < 0.2 mg/dL (0.0-1.0); Blood Urea Nitrogen 36 mg/dL (9-16); Calcium 8.8 mg/dL (8.4-10.2); Carbon Dioxide 29 mmol/L (22-29); Chloride 108 mmol/L (96-108); Cholesterol 234 mg/dL; Estimated Glomerular Filt Rate 44; Glucose Fasting 141 mg/dL (60-99); HDL Cholesterol 72 mg/dL; LDL Cholesterol Calculated 149 mg/dl; Potassium 5.1 mmol/L (3.3-5.1); Sodium 143 mmol/L (135-145); Total Protein 6.1 g/dL (6.5-8.0); Triglycerides 68 mg/dL
== END 2021-01-27 08:29 | disposition home or self-care (01) ==
LOC: HO.WFDLDS 08:28
PROVIDERS: Visit Provider Family Medicine
DX: Z00.00 Encounter for general adult medical examination without abnormal findings (principal)
CPT/HCPCS: 36415; 80053; 80061; 84443

== ENCOUNTER 2021-02-01 10:02 | Outpatient (REF) | payer OTHER, SELFPAY ==
[2021-02-01 13:25] LABS: MANUAL DIFF FLAG NO
[2021-02-01 13:27] LABS: Basophils Percent Auto 0.7 % (0-2); Eosinophils Absolute Auto 0.2 X10*3/uL (0.0-0.4); Eosinophils Percent Auto 3.4 % (0-4); Hemoglobin 8.8 g/dl (12.0-16.0); Imm Gran Abs Auto 0.01 X10*3/uL (0.00-0.03); Imm Gran Pct Auto 0.2 % (0.0-0.4); Lymphocytes Absolute Auto 1.7 X10*3/uL (1.2-4.9); Lymphocytes Percent Auto 29.4 % (20-40); Mean Corpuscular HGB Conc 32.6 g/dl (31.0-35.0); Mean Corpuscular Hemoglobin 27.7 pg (27.0-33.0); Mean Corpuscular Volume 84.9 fL (80-98); Mean Platelet Volume 9.9 fL (9.4-12.3); Monocytes Absolute Auto 0.4 X10*3/uL (0.1-1.2); Monocytes Percent Auto 7.1 % (2-11); Neutrophils Absolute Auto 3.5 X10*3/uL (2.0-8.3); Neutrophils Percent Auto 59.2 % (45-73); Platelet Count 341 X10*3/uL (160-400); Red Blood Count 3.18 X10*6/uL (4.20-5.50); Red Cell Distribution Width 13.2 % (11.0-16.0); White Blood Count 5.9 X10*3/uL (4.8-10.8)
[2021-02-01 14:20] LABS: Anion Gap 11 (12-20); Blood Urea Nitrogen 36 mg/dL (9-16); Calcium 9.3 mg/dL (8.4-10.2); Carbon Dioxide 30 mmol/L (22-29); Chloride 106 mmol/L (96-108); Estimated Glomerular Filt Rate 37; Glucose Random 98 mg/dL (60-115); Potassium 4.9 mmol/L (3.3-5.1); Sodium 142 mmol/L (135-145)
[2021-02-01 14:30] LABS: TSH reflex Free T4 2.13 uIU/mL (0.32-4.0)
== END 2021-02-01 10:03 | disposition home or self-care (01) ==
LOC: HO.WFDLDS 10:02
PROVIDERS: Visit Provider Family Medicine
DX: Z00.00 Encounter for general adult medical examination without abnormal findings (principal); I95.1 Orthostatic hypotension; D64.9 Anemia, unspecified; E11.9 Type 2 diabetes mellitus without complications
CPT/HCPCS: 36415; 80048; 84443; 85025

== ENCOUNTER → 2021-04-24 09:13 | Outpatient (BNVA) | payer OTHER, SELFPAY | PROVIDERS: PCP Family Medicine; Visit Provider Internal Medicine ==

== ENCOUNTER 2021-05-10 12:19 | Outpatient (REF) | payer OTHER, SELFPAY ==
[2021-05-10 13:28] LABS: MANUAL DIFF FLAG NO
[2021-05-10 13:33] LABS: Basophils Absolute Auto 0.1 X10*3/uL (0.0-0.2); Basophils Percent Auto 0.8 % (0-2); Eosinophils Absolute Auto 0.2 X10*3/uL (0.0-0.4); Eosinophils Percent Auto 3.3 % (0-4); Hematocrit 29.9 % (37-47); Hemoglobin 9.7 g/dl (12.0-16.0); Imm Gran Abs Auto 0.01 X10*3/uL (0.00-0.03); Imm Gran Pct Auto 0.2 % (0.0-0.4); Lymphocytes Absolute Auto 1.9 X10*3/uL (1.2-4.9); Lymphocytes Percent Auto 29.2 % (20-40); Mean Corpuscular HGB Conc 32.4 g/dl (31.0-35.0); Mean Corpuscular Hemoglobin 26.7 pg (27.0-33.0); Mean Corpuscular Volume 82.4 fL (80-98); Mean Platelet Volume 9.9 fL (9.4-12.3); Monocytes Absolute Auto 0.5 X10*3/uL (0.1-1.2); Monocytes Percent Auto 7.5 % (2-11); Neutrophils Absolute Auto 3.8 X10*3/uL (2.0-8.3); Platelet Count 371 X10*3/uL (160-400); Red Blood Count 3.63 X10*6/uL (4.20-5.50); Red Cell Distribution Width 13.6 % (11.0-16.0); White Blood Count 6.4 X10*3/uL (4.8-10.8)
[2021-05-10 13:46] LABS: Glucose Urine UA 100 MG/DL (NEG); Leukocyte Esterase Urine NEG (NEG); Nitrite Urine NEG (NEG); Specific Gravity - Urine 1.015 (1.005-1.025); Urine Blood NEG (NEG); Urine Ketones NEG (NEG); Urine Protein 3+ MG/DL (NEG-TRACE)
[2021-05-10 13:48] LABS: Appearance Urine CLEAR; Color Urine STRAW
[2021-05-10 13:59] LABS: RBC Urine 0 /HPF (0); Squamous Epithelial Cell Urine TRACE /LPF; WBC Urine 0 /HPF (0-4)
[2021-05-10 14:40] LABS: Alanine Aminotransferase 11 U/L (0-31); Albumin Level 3.7 g/dL (3.5-5.0); Alkaline Phosphatase 110 U/L (39-117); Anion Gap 13 (12-20); Aspartate Amino Transferase 13 U/L (5-31); Bilirubin Total 0.3 mg/dL (0.0-1.0); Blood Urea Nitrogen 39 mg/dL (9-16); Calcium 9.2 mg/dL (8.4-10.2); Carbon Dioxide 26 mmol/L (22-29); Chloride 104 mmol/L (96-108); Estimated Glomerular Filt Rate 28; Glucose Fasting 121 mg/dL (60-99); Iron 53 mcg/dL (30-160); Percent Iron Saturation 17 % (15-50); Potassium 4.7 mmol/L (3.3-5.1); Sodium 138 mmol/L (135-145); Total Iron Binding Capacity 304 mcg/dL (228-428); Total Protein 6.4 g/dL (6.5-8.0); Unsaturated Iron Binding 251 ug/dL
== END 2021-05-10 12:20 | disposition home or self-care (01) ==
LOC: HO.WFDLDS 12:19
PROVIDERS: Visit Provider Family Medicine
DX: Z00.00 Encounter for general adult medical examination without abnormal findings (principal); D64.9 Anemia, unspecified; E11.9 Type 2 diabetes mellitus without complications
CPT/HCPCS: 36415; 80053; 81001; 83540; 85025

== ENCOUNTER 2021-11-01 12:59 | Outpatient (REF) | payer OTHER, SELFPAY ==
[2021-11-01 14:09] LABS: Estimated Average Glucose 137 mg/dL; Hemoglobin A1C 127.4394 umol/L; Hemoglobin A1c % 6.4 %
[2021-11-01 14:20] LABS: Alanine Aminotransferase 16 U/L (0-31); Albumin Level 3.7 g/dL (3.5-5.0); Alkaline Phosphatase 129 U/L (39-117); Anion Gap 12 (12-20); Aspartate Amino Transferase 18 U/L (5-31); Bilirubin Total 0.3 mg/dL (0.0-1.0); Blood Urea Nitrogen 43 mg/dL (9-16); Calcium 8.7 mg/dL (8.4-10.2); Carbon Dioxide 22 mmol/L (22-29); Chloride 110 mmol/L (96-108); Estimated Glomerular Filt Rate 23; Glucose Random 58 mg/dL (60-115); Potassium 5.4 mmol/L (3.3-5.1); Sodium 139 mmol/L (135-145); Total Protein 6.7 g/dL (6.5-8.0)
== END 2021-11-01 13:00 | disposition home or self-care (01) ==
LOC: HO.WFDLDS 12:59
PROVIDERS: Visit Provider Family Medicine
DX: E11.9 Type 2 diabetes mellitus without complications (principal); I10 Essential (primary) hypertension
CPT/HCPCS: 36415; 80053; 83036

== ENCOUNTER 2021-12-01 13:33 | Outpatient (REF) | payer OTHER, SELFPAY ==
--- NOTE | ~2021-12-01 | MR_ITS ---
EXAMINATION: MR BRAIN WITHOUT CONTRAST CLINICAL INFORMATION: Question mini strokes. Confusion. Weakness in legs. Vision changes. COMPARISON: Head CT dated 07/27/2020. TECHNIQUE: Multiplanar, multisequence imaging of the brain was performed without contrast. FINDINGS: No diffusion abnormalities are identified to suggest an acute or subacute infarct. The ventricles are normal in size. No mass effect or midline shift is seen. Mild chronic white matter microangiopathic changes noted. No extra-axial fluid collections are seen. The brainstem and cerebellum are normal. The gradient refocused acquisition is normal. The midline structures are normal. The major intracranial flow voids at the level of the [place] are preserved. The dural venous sinus flow voids are maintained. The mastoid air cells are well aerated. There is mild mucosal thickening dependently in the right maxillary antrum. There is hypointense signal abnormality in the right aspect of the basisphenoid portion of the clivus extending into the right jugular tubercle which is heterogeneous and mildly hyperintense on the T2-weighted acquisition. When compared to the prior CT study, there is a coarsened trabecular pattern at this site without osseous erosion or aggressive imaging features. MR/MR head/brain wo con IMPRESSION: No acute intracranial process. Mild chronic white matter microangiopathy. Marrow signal abnormality basisphenoid portion of the clivus on the right side extending inferiorly into the right jugular tubercle which may represent an atypical intraosseous hemangioma/venous malformation, given appearance on CT imaging. If the patient has any history of malignancy, a nuclear bone scan may be useful for further evaluation.
== END 2021-12-01 13:34 | disposition home or self-care (01) ==
LOC: HO.MRI 13:33
PROVIDERS: PCP Family Medicine; Visit Provider Psychiatry & Neurology Neurology
DX: I63.9 Cerebral infarction, unspecified (principal)
CPT/HCPCS: 70551

== ENCOUNTER → 2022-01-03 13:03 | Outpatient (BNVA) | payer OTHER, SELFPAY | PROVIDERS: PCP Family Medicine; Visit Provider Orthopaedic Surgery | DX: G56.03 Carpal tunnel syndrome, bilateral upper limbs (principal); M65.342 Trigger finger, left ring finger; M65.332 Trigger finger, left middle finger | CPT/HCPCS: 99202 ==

== ENCOUNTER 2022-01-22 07:36 | Day surgery (SDC) | payer OTHER, SELFPAY ==
--- NOTE | 2022-01-22 08:04 | W.PM.OPN ---
Operative Note Operative Note Date of Service: 01/22/22 Narrative: Preop diagnosis: 1. left Carpal tunnel syndrome 2. Left middle finger trigger finger 3. The left ring finger trigger finger Postop diagnosis: same Procedure: 1. left Carpal tunnel release 2. Left middle finger trigger release 3. Left ring finger trigger release Surgeon: Alma Chavez MD Anesthesia: local block using 1% lidocaine with epinephrine Findings: Thickened transverse carpal ligament. no locking and catching after A1 immanuel releases EBL: Less than 5 mL Specimens: None Complications: None Disposition: Brought to recovery room in stable condition Plan: Follow-up for 10-14 days for wound check and suture removal Indications: The patient is 61 years old, with left carpal tunnel syndrome, and left middle finger trigger finger and a left ring finger trigger finger that have been unresponsive to nonoperative management. The risks and benefits of operative treatment including but not limited to risk of damage to blood vessels, nerves, tendons, infection, persistent pain, persistent symptoms, or possible need for additional surgery were discussed with the patient and the patient wishes to proceed with surgery. Procedure: Once consent was obtained a local block was performed using a combination of 1% lidocaine with epinephrine. The patient was then brought back to the operating suite and placed on the operative table in supine position. A tourniquet was applied to the proximal aspect of the left upper extremity and the limb was prepped and draped in a standard surgical fashion. Once assured that we had a good block, a 1.5 cm longitudinal incision was made centered over the carpal tunnel. The incision was made through the skin to the subcutaneous tissues using a #15 blade. Dissection was made down to the level of the transverse carpal ligament with care being taken to protect the palmar cutaneous nerve. Once the transverse carpal ligament was clearly visualized, a longitudinal incision was made in the transverse carpal ligament 1st using a #15 blade, then using tenotomy scissors under direct visualization. Care was taken to look for and protect the motor branch of the median nerve when seen in this area. Once assured that we had a good block, a 1.5 cm oblique incision was made centered over the A1 immanuel of the left middle finger . The incision was made through the skin to the subcutaneous tissues using a #15 blade. Careful dissection was made down to the level of the A1 immanuel using tenotomy scissors, with care being taken to protect the nearby neurovascular structures. A longitudinal incision was made in the A1 immanuel 1st using a #15 blade, then using tenotomy scissors under direct visualization. The A1 immanuel was noted to be thickened. Following our A1 immanuel release, we no longer saw any locking or catching of the digit with flexion and extension. Once assured that we had a good block, a 1.5 cm oblique incision was made centered over the A1 immanuel of the left ring finger . The incision was made through the skin to the subcutaneous tissues using a #15 blade. Careful dissection was made down to the level of the A1 immanuel using tenotomy scissors, with care being taken to protect the nearby neurovascular structures. A longitudinal incision was made in the A1 immanuel 1st using a #15 blade, then using tenotomy scissors under direct visualization. The A1 immanuel was noted to be thickened. Following our A1 immanuel release, we no longer saw any locking or catching of the digit with flexion and extension. Once satisfied with our carpal tunnel release and trigger finger releases,the wounds were copiously irrigated with normal saline and hemostasis was obtained with a brief period of local pressure. The skin edges were reapproximated with some 5.0 nylon suture material and a sterile dressing was applied. The patient appears to have tolerated the procedure well and with no complications. All digits were well vascularized at the conclusion of the case.
[2022-01-22 08:17] VITALS: BMI 21.6
[2022-01-22 08:18] VITALS: BP 218/90; PULSE 83; RESP 16; TEMP 37.2; O2SAT 96
--- NOTE | 2022-01-22 08:56 | MHC.SHP ---
Pre-Procedural Eval Section A Date of Service: 01/22/22 The patient is an INPATIENT: No Changes since office visit: No Cold of Flu in the past 2 weeks, No New Medical Problems, No Changes in Medication and No Patient answered all questions The History & Physical has been completed within 30 days and I have reviewed it.: Yes Section B Chief Complaint: carpal tunnel,trigger finger release Allergies: Allergies Allergy/AdvReac Type Severity Reaction Status Date / Time Penicillins [PENICILLINS] Allergy Severe INVOLUNTARY Verified 01/03/22 13:25 SPASMS Plan I have reviewed the history and physical and performed a pertinent physical examination on my patient. No changes have occurred unless specified.
[2022-01-22 09:47] VITALS: BP 185/69; PULSE 84; RESP 16; TEMP 37.1; O2SAT 97
== END 2022-01-22 09:55 | disposition home or self-care (01) ==
PROVIDERS: PCP Family Medicine; Visit Provider Orthopaedic Surgery
PROC: (CPT 64721; principal; 2022-01-22 08:40)
PROC: (CPT 26055; 2022-01-22 08:40)
DX: G56.02 Carpal tunnel syndrome, left upper limb (principal); M65.332 Trigger finger, left middle finger; M65.342 Trigger finger, left ring finger; R20.0 Anesthesia of skin; I10 Essential (primary) hypertension; E11.9 Type 2 diabetes mellitus without complications; Z79.4 Long term (current) use of insulin; Z88.0 Allergy status to penicillin; Z79.899 Other long term (current) drug therapy
CPT/HCPCS: 64721; 26055 ×2

== ENCOUNTER → 2022-02-06 08:36 | Outpatient (BNVA) | payer OTHER, SELFPAY | PROVIDERS: PCP Family Medicine; Visit Provider Orthopaedic Surgery | DX: G56.02 Carpal tunnel syndrome, left upper limb (principal); M65.342 Trigger finger, left ring finger; M65.332 Trigger finger, left middle finger | CPT/HCPCS: 99212 ==

== ENCOUNTER 2022-11-27 11:43 | Outpatient (REF) | payer OTHER, SELFPAY ==
--- NOTE | ~2022-11-27 | MM_ITS ---
EXAMINATION: MM SCREENING DIGITAL BREAST TOMOSYNTHESIS, BILATERAL CLINICAL INFORMATION: Screening. Asymptomatic. The lifetime risk of breast cancer based on the Tyrer-Cuzick Model is 15%. COMPARISON: Outside mammography: 05/16/2018, 08/23/2016, 08/13/2014 ([facility]) TECHNIQUE: Digital breast tomosynthesis is performed in both the craniocaudal and mediolateral oblique views along with computer-aided detection (CAD). Synthesized 2D images are generated from the tomosynthesis. Additional left MLO view is provided. FINDINGS: There are scattered areas of fibroglandular density (ACR BI-RADS breast composition Category b). There are no significant masses, abnormal calcifications, or other abnormalities. There are interval bilateral scattered vascular calcifications. The axilla and skin contours are unremarkable. There is no developing density or architectural abnormality. MM/MM tomosynthesis screening BI IMPRESSION: No mammographic evidence of malignancy. ASSESSMENT: BI-RADS 2: Benign RECOMMENDATION: Routine annual mammography screening. This patient's information was entered into a reminder system with a target due date for their next mammogram.
== END 2022-11-27 11:44 | disposition home or self-care (01) ==
LOC: HO.MAMMO 11:43
PROVIDERS: Visit Provider Family Medicine
DX: Z12.31 Encounter for screening mammogram for malignant neoplasm of breast (principal)
CPT/HCPCS: 77063; 77067

== ENCOUNTER 2023-12-26 11:42 | Outpatient (REF) | payer MEDICARE, MEDICAID, SELFPAY | END 2023-12-26 11:43 | disposition home or self-care (01) | LOC: HO.MAMMO 11:42 | PROVIDERS: PCP Family Medicine; Visit Provider Family Medicine | DX: Z12.31 Encounter for screening mammogram for malignant neoplasm of breast (principal) | CPT/HCPCS: 77063; 77067 ==

== ENCOUNTER → 2023-12-26 11:45 | Outpatient (BNV) | payer MEDICARE, MEDICAID, SELFPAY | PROVIDERS: PCP Family Medicine; Visit Provider Radiology Diagnostic Radiology | DX: Z12.31 Encounter for screening mammogram for malignant neoplasm of breast (principal) | CPT/HCPCS: 77063; 77067 ==

== ENCOUNTER 2024-02-25 15:30 | Outpatient (AMB) | payer MEDICARE, MEDICAID, SELFPAY ==
--- NOTE | 2024-02-25 15:46 | MHC.PC.OV ---
Vital Signs 02/25/24 15:47 Height 5 ft 7 in Weight 151 lb BMI 23.6 BP 136/62 Blood Pressure Location Lt brachial Position Sitting Pulse 86 Pulse Source Pulse Oximeter Pulse Oximetry (%) 98 Oxygen Delivery Method Room Air Intake Visit Reasons: DM/ scalp dryness Intake Note: Patient is here with scalp dryness, itchiness, dryness, bumps. Allergies Penicillins [PENICILLINS] Allergy (Severe, Verified 02/25/24 15:49) INVOLUNTARY SPASMS Medication List - Last Reconciled 02/25/24 by Scott Patrick MD acetaminophen 650 mg PO Q4H PRN amlodipine 2.5 mg PO BID amlodipine 5 mg PO DAILY B complex with C 20-folic acid 1 mg 1 cap PO DAILY blood pressure monitor Automatic, Digital. Dx: I10. Daily As directed, 999 days/lifetime blood sugar diagnostic (FreeStyle Lite Strips) 1 strip miscellaneous TID docusate sodium 100 mg PO DAILY PRN famotidine 20 mg PO BEDTIME PRN fludrocortisone 0.1 mg PO DAILY furosemide 40 mg PO BID gabapentin 800 mg PO TID glipizide 10 mg (2 x 5 mg) PO BID hydralazine 50 mg PO TID 30 days hydrocodone-acetaminophen 5-325 mg 1 tab PO Q4-6H PRN insulin aspart U-100 (Novolog FlexPen U-100 Insulin aspart) See Protocol Inject 3 times a day per sliding scale. 100-129: 2U, 130-179: 4U, 180-229: 6U, 230-279: 8U, 280-329: 10U, 330-379: 12U, 380-429 14U. Call PCP if greater than 400. subcut 3 times a day; 30 days insulin glargine (Lantus Solostar U-100 Insulin) 8 units (0.08 mL) subcut BEDTIME 30 days lancets (FreeStyle Lancets) USE 4 TIMES A DAY FOR DIABETES, 90 days losartan 50 mg PO DAILY miscellaneous medical supply Wheelchair Daily, As directed, 999 days. pen needle, diabetic Use QID,As directed. 90 day supply sodium polystyrene sulfonate grams PO DAILY tramadol 50 mg PO BEDTIME 30 days Tobacco use date assessed: 02/25/24 Dental Screening Dental Screen Date: 02/25/24 Did you have a dental visit in the last 12 months?: Yes Did you have a dental problem in the last 6 months where you did not have access to dental care?: No Was dental information given to patient?: Patient has dentist HPI DM/ scalp dryness HPI Details 64 y/o female presents to f/u diabetes. Blood pressure today 136/62. She is on losartan 50mg, amlodipine. A1c today 02/25/24 is 5.7%. Pt has complaints of scalp dryness today. PFSH Medical History Gastroparesis Chronic kidney disease History of neuropathy Orthostatic hypotension Feeling of incomplete bladder emptying Acute hyperglycemia Depression Diabetes mellitus, insulin dependent (IDDM), controlled HTN (hypertension) Surgical History H/O elbow surgery Hx of appendectomy Family History Father Type 2 diabetes mellitus Mother Type 2 diabetes mellitus Brother Substance use disorder Son Substance use disorder Other Mental health disorder Social History Household Members: Significant Other and Children Housing: House Alcohol intake: never Comment: sleeping Patient Tobacco Use Status: Never used Tobacco e-Cigarette/Vaping Use: Never Used Second Hand Smoke Exposure: No service: No Current occupational status: disabled Current occupational exposures/hazards: No Cognitive needs: No Hearing needs: No Vision needs: No Questionnaire PHQ-9 Over the last 2 weeks, how often have you been bothered by any of the following problems? 1. Little interest or pleasure in doing things: not at all 2. Feeling down, depressed, or hopeless: not at all 3. Trouble falling or staying asleep, or sleeping too much: not at all 4. Feeling tired or having little energy: not at all 5. Poor appetite or overeating: not at all 6. Feeling bad about yourself - or that you are a failure or have let yourself or your family down: not at all 7. Trouble concentrating on things, such as reading the newspaper or watching television: not at all 8. Moving or speaking so slowly that other people could have noticed. Or the opposite - being so fidgety or restless that you have been moving around a lot more than usual: not at all 9. Thoughts that you would be better off or of hurting yourself in some way: not at all Total score: 0 Depression Screening Interpretation: Negative Depression Screening Done: Yes 25882 - PHQ-9 Billing: Yes Source: Developed by Drs. Carlos Nelson, Miriam Wan, Franky Burnham and colleagues, with an educational janine from [employer]. Thrive Questionnaire Date Thrive assessed: 02/25/24 I am a: Patient What is your living situation today?: I have a steady place to live Within the past 12 months, did the food you bought not last and you didn't have the money to get more?: Never true Within the past 12 months, did you worry whether your food would run out before you got money to buy more?: Never true Do you have trouble paying for medicines?: No Do you have trouble getting transportation to medical appointments?: No Do you have trouble paying your heating and electricity bill?: No Do you have trouble taking care of your child, family member or friend?: No Do you have trouble with day-to-day activities such as bathing, preparing meals, shopping, managing finances, etc.?: No Are you currently unemployed and looking for a job?: No Are you interested in more education?: No THRIVE Score: 0 AUDIT C Alcohol Use Questionnaire (AUDIT-C) 1. How often do you have a drink containing alcohol?: Never 3. How often do you have six or more drinks on one occasion?: Never Total Score: 0 CHERYLE-7 AMB Questionnaire CHERYLE-7 Date CHERYLE - 7 assessed: 02/25/24 Feeling nervous, anxious, or on edge: 0 = Not at all Not being able to stop or control worryin = Not at all Worrying too much about different things: 3 = Nearly every day Trouble relaxin = Not at all Being so restless that it is hard to sit still: 0 = Not at all Becoming easily annoyed or irritable: 0 = Not at all Feeling afraid as if something awful might happen: 0 = Not at all Total CHERYLE-7 score (0-4 normal; 5-9 mild; 10-14 moderate; 15-21 severe): 3 Source: Developed by Miriam Lyon B.W. Savage, Franky Burnham and colleagues, with an educational janine from [employer]. CHERYLE-7 Assessment Billing CHERYLE-7 Assessment Tool: CHERYLE-7 Assessment 75006 Review of Systems Const Denies chills, Denies fatigue, Denies fever(s), Denies headache(s) and Denies weakness ENT Denies dizziness and Denies headache(s) Card Denies chest pain, Denies lightheadedness, Denies dyspnea and Denies other (Palpitations) Resp Denies cough, Denies dyspnea, Denies wheezing and Denies other ( shortness of breath) Musc Denies numbness and Denies tingling Neuro Denies dizziness, Denies headache(s), Denies numbness, Denies tingling, Denies paresthesias and Denies weakness Psych Denies anxiety and Denies depression Endo Denies fatigue Aller/Immun Denies wheezing Physical exam (Primary Care) Vital Signs: Last Vital Signs Pulse 86 02/25/24 15:47 BP 136/62 02/25/24 15:47 Pulse Ox 98 02/25/24 15:47 Oxygen Delivery Method Room Air 02/25/24 15:47 BMI result Body Mass Index 23.6 Tobacco/Smoking Status: Tobacco use Status Tobacco use date assessed 02/25/24 02/25/24 15:56 Patient Tobacco Use Status Never used Tobacco 02/25/24 15:56 e-Cigarette/Vaping Use Never Used 02/25/24 15:56 PHQ-9: PHQ-9 Score PHQ-9: Total score 0 02/25/24 16:10 Depression Screening Interpretation: Negative Thrive Assessment: Date of Thrive Assessment Date Thrive assessed 02/25/24 02/25/24 16:06 Const General: no acute distress and well developed Nutritional Appearance: well nourished Orientation/consciousness: patient oriented x3 HENMT Head: Yes normocephalic and Yes atraumatic Eyes General: appearance normal, both eyes and all related structures Pupils: Equal, round and reactive pupils present EOM: EOMs intact bilaterally Resp Effort & Inspection: normal respiratory effort Auscultation: clear to auscultation bilaterally Cardio Rate: regular rate Rhythm: regular rhythm Heart sounds: S1 normal heart sound present, S2 normal heart sound present, no gallops, no murmurs and no rubs Neuro General: patient oriented x3 and gait normal Cranial nerves: Yes Equal, round and reactive pupils present Psych Affect: normal affect Assessment and Plan Assessment & Plan (1) HTN (hypertension): Code(s): I10 - Essential (primary) hypertension Plan: Blood?pressure?is?controlled.??Goal?is?less?than?140/90 Continue?current?medication?regimen (2) Diabetes type 2, controlled: Code(s): E11.9 - Type 2 diabetes mellitus without complications Plan: A1c?5.7%.??Goal?is?less?than?7.0% Well?controlled Continue?current?medication?regimen (3) Psoriasis of scalp: Code(s): L40.9 - Psoriasis, unspecified Plan: Referred?to?dermatology Try?T-Gel (4) Dry scalp: Code(s): R23.8 - Other skin changes Plan: As?above Orders: Referrals Dermatology Referral L40.9 - Psoriasis, unspecified, R23.8 - Other skin changes Coding Level of Care Code Est Pt Level 3 (30088) Diagnoses HTN (hypertension) I10 Diabetes type 2, controlled E11.9 Psoriasis of scalp L40.9 Dry scalp R23.8 Additional Codes CHERYLE-7 Assessment Billing - CHERYLE-7 Assessment Tool: CHERYLE-7 Assessment 26421 ([id number])
[2024-02-25 15:47] VITALS: BP 136/62; PULSE 86; O2SAT 98; BMI 23.6
== END 2024-02-25 16:41 | disposition home or self-care (01) ==
PROVIDERS: PCP Family Medicine; Visit Provider Family Medicine
DX: I10 Essential (primary) hypertension (principal); E11.9 Type 2 diabetes mellitus without complications; L40.9 Psoriasis, unspecified; R23.8 Other skin changes
CPT/HCPCS: 99213

== ENCOUNTER 2024-07-14 14:59 | Outpatient (REF) | payer MEDICARE, MEDICAID, SELFPAY ==
--- NOTE | ~2024-07-14 | XR_ITS ---
EXAMINATION: XR CERVICAL SPINE CLINICAL INFORMATION: Cervical radiculopathy COMPARISON: None available. TECHNIQUE: 4 views of the cervical spine including swimmer's lateral view. FINDINGS: The cervical thoracic junction is partially obscured on the lateral view despite swimmer's view. Vertebral bodies appear normally aligned with normal height. C5-C6 level there is mild disc space narrowing and osteophytes indicative of mild degenerative disc changes. The remaining disc levels are normal. Facets are unremarkable. Surrounding bone and soft tissues are unremarkable. XR/XR cervical spine 3V IMPRESSION: 1. Mild spondylosis of the cervical spine. 2. Limited visualization of the cervical thoracic junction on the lateral view. Electronically signed by: Harman Newman MD 08/04/2024 07:33 AM EDT
== END 2024-07-14 15:00 | disposition home or self-care (01) ==
LOC: HO.XRAY 14:59
PROVIDERS: Visit Provider Registered Nurse
DX: M54.12 Radiculopathy, cervical region (principal)
CPT/HCPCS: 72040

== ENCOUNTER 2024-11-05 13:54 | Outpatient (AMB) | payer MEDICARE, MEDICAID, SELFPAY ==
--- OUTSIDE RECORDS SUMMARY | 2024-11-05 13:56 | XMS_ITS | Continuity of Care Document ---
Author Organization [facility] Address [address] [place] [address]- Care Team Providers Care Car Storer Name Role Phone Scott Patrick MD Primary Care Physician Encounter [facility] [place] Date(s): 08/25/24 - 11/03/[address] [address] Encounter Diagnosis Age-related physical debility(Final) - Discharge Disposition: A-D/C Home Attending Physician: Scott Patrick MD Admitting Physician: Scott Patrick MD Referring Physician: Scott Patrick MD Encounter Type: Disch Recurring OP Allergies, Adverse Reactions, Alerts Substance Criticality Severity Reaction Reaction Severity Status penicillins convulsions Active Immunizations Given and Recorded Vaccine Date Status Refusal Reason SARS-CoV-2 (COVID-19) mRNA BNT-162b2 vac 10/31/21 Recorded SARS-CoV-2 (COVID-19) mRNA BNT-162b2 vac 01/27/21 Recorded SARS-CoV-2 (COVID-19) mRNA BNT-162b2 vac 01/05/21 Recorded influenza virus vaccine, inactivated 09/22/20 Give n influenza virus vaccine, inactivated 12/19/19 Give n influenza virus vaccine, inactivated 12/17/19 Rudolph rded tetanus/diphtheria/pertussis, acel(Tdap) 01/01/20 Recorded Medications amLODIPine 5 mg oral tablet 1 tablet = 5 mg, By Mouth, Daily, # 30 tablet, 0 Refills, Maintenance, 08/06/22 5:16:00 PM EDT, Tablet, [id number], Partial fill upon patient request if the prescription is for a schedule II opioid drug., 170, cm, 08/06/22 16:57:00 EDT, Height, 64, kg, 08/06/22 16:57:00 EDT, Dry Weight Start Date: 08/06/22 Status: Ordered Quantity: 30.0 Unit: tablet Repeat number: 1 azithromycin 250 mg oral tablet 1 pack/packet, By Mouth, Once, # 6 tablet, 0 Refills, Maintenance, 04/09/24 1:01:00 PM EDT, Tablet, Partial fill upon patient request if the prescription is for a schedule II opioid drug. Start Date: 04/09/24 Stop Date: 04/14/24 Status: Ordered Quantity: 6.0 Unit: tablet Repeat number: 1 Colace sodium 100 mg oral capsule See Instructions, PRN, 1 capsule By Mouth prn, Refills 0, Maintenance, for constipation, 04/09/24 1:00:00 PM EDT, Instructions Replace Required Details, Partial fill upon patient request if the prescription is for a schedule II opioid drug. Start Date: 04/09/24 Status: Ordered Repeat number: 1 Freestyle Lite Lancets See Instructions, # 600 each, Refills 2, Tot. Refills 2, Maintenance, use as directed for Type 2 Diabetes Mellitus, test 4 times daily. E 11.65, 12/25/19 10:49:00 AM EST, Compound, 170.18, cm, :03:00 EST, Height, 63.8, kg, 12/16/19 18:50:00 EST, Dry Weight Start Date: 12/25/19 Stop Date: 09/20/20 Status: Ordered Quantity: 600.0 Unit: each Repeat number: 3 Freestyle Lite Monitor See Instructions, # 1 each, Refills 1, Tot. Refills 1, Maintenance, use as directed for Type 2 Diabetes Mellitus, test 4 times daily. E 11.65, 12/25/19 10:49:00 AM EST, Compound, 170.18, cm, 12/25/19 7:03:00 EST, Height, 63.8, kg, 12/16/19 18:50:00 EST, Dry Weight Start Date: 12/25/19 Stop Date: 02/23/20 Status: Ordered Quantity: 1.0 Unit: each Repeat number: 2 Freestyle Lite Test Strips See Instructions, # 200 each, Tot. Refills 5, Maintenance, use as directed for Type 2 Diabetes Mellitus, test 4 times daily. E 11.65, 12/25/19 10:49:00 AM EST, Compound, 170.18, cm, 12/25/19 7:03:00 EST, Height, 63.8, kg, 12/16/19 18:50:00 EST, Dry Weight Start Date: 12/25/19 Stop Date: 01/24/20 Status: Ordered Quantity: 200.0 Unit: each Repeat number: 6 furosemide 20 mg oral tablet 20 mg, 1, tablet, By Mouth, Every other day, # 15 tablet, Refills 0, Tot. Refills 0, Maintenance, 06/24/22 1:36:00 PM EDT, Route to Pharmacy Electronically, [facility]/pharmacy #[id number], Partial fill upon patient request if the prescription is for a schedule II opioid drug., 170.1, cm, 06/24/22 13:15:00 EDT, Height, 64.5, kg, 06/16/22 14:18:00 EDT, Dry Weight Start Date: 06/24/22 Status: Ordered Quantity: 15.0 Unit: tablet Repeat number: 1 Gabapentin = 300 mg, By Mouth, 3 times a day, 0 Refills, Maintenance, 11/17/21 1:06:00 PM EST, Partial fill upon patient request if the prescription is for a schedule II opioid drug. Start Date: 11/17/21 Status: Ordered Repeat number: 1 hydrALAZINE 50 mg oral tablet 1 tablet = 50 mg, By Mouth, 3 times a day, 0 Refills, Maintenance, 08/06/22 3:16:00 PM EDT, Partial fill upon patient request if the prescription is for a schedule II opioid drug. Start Date: 08/06/22 Status: Ordered Repeat number: 1 insulin aspart 100 units/mL subcutaneous solution See Instructions, 2-14 units Subcutaneous Injection 3 times a day before meals. If not eating, don't take. Call , # 15 mL, 0 Refills, Maintenance, 12/25/19 10:51:00 AM EST, Solution, [facility], 170.18, cm, 12/25/19 7:03:00 EST, Height, 63.8, kg, 12/16/19 18:50:00 EST, Dry Weight Start Date: 12/25/19 Status: Ordered Quantity: 15.0 Unit: mL Repeat number: 1 Lantus Solostar Pen 100 units/mL subcutaneous solution = 5 units, Subcutaneous Infusion, Daily at bedtime, 0 Refills, Maintenance, 09/20/20 8:08:00 PM EST Start Date: 09/20/20 Status: Ordered Repeat number: 1 Pen [place], 32 G x 4 mm BD Ultra Fine III See Instructions, # 100 each, Refills 3, Tot. Refills 3, Maintenance, use to inject insulin four times a day as directed, 12/25/19 10:54:00 AM EST, Compound, 170.18, cm, 12/25/19 7:03:00 EST, Height, 63.8, kg, 12/16/19 18:50:00 EST, Dry Weight Start Date: 12/25/19 Status: Ordered Quantity: 100.0 Unit: each Repeat number: 4 polyethylene glycol 3350 oral powder for reconstitution = 17 Gm, By Mouth, Daily, PRN Constipation, dissolve in water before taking, # 255 Gm, 0 Refills, Maintenance, 09/20/20 8:05:00 PM EST, REC Powder Start Date: 09/20/20 Status: Ordered Quantity: 255.0 Unit: g Repeat number: 1 traMADol 50 mg oral tablet 1 tablet = 50 mg, By Mouth, Every 12 hours, PRN Pain , Moderate, 0 Refills, Maintenance, 09/20/20 8:08:00 PM EST Start Date: 09/20/20 Status: Ordered Repeat number: 1 Problem List Condition Confirmation Course Effective Dates Status H ealth Status Informant Diabetes mellitus Confirmed Active Diabetic neuropathy Confirmed Active Emphysematous pyelonephritis Confirmed Active History of appendectomy Confirmed Active History of closure of nephrostomy Confirmed Active History of ureteral stent placement Confirmed Active Hyperlipidemia Confirmed Active Hypertension Confirmed Active Leiomyoma of stomach 1 Confirmed 08/02/15 Active Orthostatic hypotension Confirmed Active Soft tissue mass Confirmed Active Supine hypertension Confirmed Active 1low grade Social History Social History Type Response Tobacco Use: pt denies. Sex Sex Representation Female (finding) Patient Care team information Care Team Personnel Name: Alida FLORES, Tono Keith Position: S Renal Member Role: Lifetime Consulting Physician Address: [address] [place] [address] [address] [facility], [place] [address]- Telecom: Name: Nancy Pleitez Position: [facility] Outreach Member Role: Lifetime Consulting Physician Name: Carrillo Szymanski RN Position: [facility] RN Supv Member Role: Primary Care Nurse Name: Scott Patrick MD Position: [facility] Outreach Member Role: PCP Address: [address] [place] [address]- [place] Telecom: Name: Alicia Kasper RN Position: [facility] RN Member Role: Lifetime Consulting Physician Name: Susan Barber RN Position: [facility] RN Member Role: Primary Care Nurse Name: Phillip Jacobsen RN Position: [facility] SN RN Member Role: Primary Care Nurse Name: Vineet Sol RN Position: [facility] RN Member Role: Primary Care Nurse Name: Ronal Umana MD Position: [facility] Outreach Member Role: Lifetime Consulting Physician Address: [address] [facility] [address] [facility], [place] [address]- [place] Telecom: Care Team Related Persons Name: CHIKI PEGUERO Name: LISETTE LYMAN Insurance Providers Guarantor name: SRIDHAR PEGUERO Health Plan Information #: 2 Payer: [facility] Member Number: [id number] Policy Number: NA Group Number: NA Health Plan Information #: 1 Payer: MEDICARE PART B OUTPT Member Number: [id number] Policy Number: NA Group Number: NA
--- OUTSIDE RECORDS SUMMARY | 2024-11-05 13:56 | XMS_ITS | Continuity of Care Document ---
Author Organization [facility] Address [address] [place] [address] Care Team Providers Care Electronic Assembler Group Leader Name Role Phone Scott Patrick MD Primary Care Physician [phone] Encounter [facility] [place] [facility] R [id number] Date(s): 08/13/24 - 10/13/[address] [address]- Encounter Diagnosis Age-related physical debility(Final) - Discharge Disposition: A-D/C Home Attending Physician: Daniel Johnson MD Admitting Physician: Daniel Johnson MD Referring Physician: Daniel Johnson MD Encounter Type: Disch Recurring OP Allergies, [...] Maintenance, 08/06/22 5:16:00 PM EDT, Tablet, [id number], Partial fill upon patient request if the [...] 12/25/19 10:49:00 AM EST, Compound, 170.18, cm, 12/25/207:03:00 EST, Height, 63.8, kg, 12/16/19 18:50:00 EST, [...] 1:36:00 PM EDT, Route to Pharmacy Electronically, [facility]/pharmacy #[id number], Partial fill upon patient request if the [...] Refills, Maintenance, 12/25/19 10:51:00 AM EST, Solution, [facility] 3, 170.18, cm, 12/25/19 7:03:00 EST, Height, 63.8, kg, 12/16/19 18:50:00 EST, Dry Weight Start Date: 12/25/19 Status: Ordered Quantity: 15.0 Unit: mL Repeat number: 1 Lantus Solostar Pen 100 units/mL subcutaneous solution = 5 units, Subcutaneous Infusion, Daily at bedtime, 0 Refills, Maintenance, 09/20/20 8:08:00 PM EST Start Date: 09/20/20 Status: Ordered Repeat number: 1 Pen [place], 32 G x 4 mm BD Ultra [...] Care team information Care Team Personnel Name: Tono Irwin MD Position: [facility] Renal Member Role: Lifetime Consulting Physician Address: [address] [place] [address] [address] [facility] [place] [address]- Telecom: Name: Maik Nancy Position: [facility] Outreach Member Role: Lifetime Consulting Physician Name: Carrillo Szymanski RN Position: [facility] RN Supv Member Role: Primary Care Nurse Name: Celina FLORES , Scott Rodriguez Position: [facility] Outreach Member Role: PCP Address: [address] [place] [address]- Telecom: Name: Alicia Kasper RN Position: [facility] RN Member Role: Lifetime Consulting Physician Name: Susan Barber RN Position: [facility] RN Member Role: Primary Care Nurse Name: Phillip Jacobsen RN Position: [facility] SN RN Member Role: Primary Care Nurse Name: Vineet Sol RN Position: [facility] RN Member Role: Primary Care Nurse Name: Ronal Umana MD Position: [facility] Renal MD Member Role: Lifetime Consulting Physician Address: [address] [facility] [address] [facility] [place] [address]- Telecom: Care Team Related Persons Name: CHIKI PEGUERO Name: LISETTE LYMAN Insurance Providers Guarantor name: SRIDHAR PEGUERO Health Plan Information #: 1 Payer: MEDICARE PART B OUTPT Member Number: [id number] Policy Number: NA Group Number: NA Health Plan Information #: 2 Payer: [facility] Member Number: [id number] Policy Number: NA Group Number: NA
--- OUTSIDE RECORDS SUMMARY | 2024-11-05 13:56 | XMS_ITS | Continuity of Care Document ---
Author Organization [facility] Address [address] [place] [address]- Care Team Providers Care Groover Runner Name Role Phone Scott Patrick MD Primary Care Physician [phone] Encounter [facility] AC[facility] R [id number] Date(s): 09/08/24 - 10/15/[address] [address]- Attending Physician: Scott Patrick MD Admitting Physician: Scott Patrick MD Encounter Type: Pre-OutPatient One Time Allergies, Adverse Reactions, Alerts Substance Criticality Severity [...] Maintenance, 08/06/22 5:16:00 PM EDT, Tablet, [id number], Partial fill upon patient request if the [...] 1:36:00 PM EDT, Route to Pharmacy Electronically, [facility] #[id number], Partial fill upon patient request if the [...] Refills, Maintenance, 12/25/19 10:51:00 AM EST, Solution, [facility] 3, 170.18, cm, 12/25/19 7:03:00 EST, Height, 63.8, kg, 12/16/19 18:50:00 EST, Dry Weight Start Date: 12/25/19 Status: Ordered Quantity: 15.0 Unit: mL Repeat number: 1 Lantus Solostar Pen 100 units/mL subcutaneous solution = 5 units, Subcutaneous Infusion, Daily at bedtime, 0 Refills, Maintenance, 09/20/20 8:08:00 PM EST Start Date: 09/20/20 Status: Ordered Repeat number: 1 Pen [place], 32 G x 4 mm BD Ultra [...] Personnel Name: Alida FLORES, Tono Keith Position: [facility] Renal MD Member Role: Lifetime Consulting Physician Address: [address] [place] [address] [address] [facility] [address]- Telecom: Name: Nancy Pleitez Position: [facility] Outreach Member Role: Lifetime Consulting Physician Name: Carrillo Szymanski RN Position: [facility] RN Supv Member Role: Primary Care Nurse Name: Scott Patrick MD Position: [facility] Outreach Member Role: PCP Address: [address] [place] [address]- Telecom: Name: Alicia Kasper RN Position: [facility] RN Member Role: Lifetime Consulting Physician Name: Susan Barber RN Position: [facility] RN Member Role: Primary Care Nurse Name: Phillip Jacobsen RN Position: [facility] SN RN Member Role: Primary Care Nurse Name: Vineet Sol RN Position: [facility] RN Member Role: Primary Care Nurse Name: Ronal Umana MD Position: [facility] Renal MD Member Role: Lifetime Consulting Physician Address: [address] [facility] [address] [facility] [place] [address]- Telecom: Care Team Related Persons Name: CHIKI PEGUERO Name: LISETTE LYMAN Insurance Providers Guarantor name: SRIDHAR PEGUERO Health Plan Information #: 2 Payer: [facility] Member Number: [id number] Policy Number: NA Group Number: NA Health Plan Information #: 1 Payer: MEDICARE PART B OUTPT Member Number: [id number] Policy Number: NA Group Number: NA
--- NOTE | 2024-11-05 14:05 | MHC.PC.OV ---
Vital Signs 11/05/24 14:19 Height 5 ft 7 in Weight 157 lb BMI 24.6 BP 160/60 H Blood Pressure Location Rt brachial Position Sitting Respiration 16 Pulse 83 Pulse Source Pulse Oximeter Temp 98.7 F Temp Source Oral Pulse Oximetry (%) 98 Oxygen Delivery Method Room Air Intake Visit Reasons: fu on dialysis Intake Note: dialysis f/u and medication refills Allergies Penicillins [PENICILLINS] Allergy (Severe, Verified 11/05/24 14:13) INVOLUNTARY SPASMS Medication List - Last Reconciled 11/05/24 by Scott Patrick MD acetaminophen 650 mg PO Q4H PRN amlodipine 2.5 mg PO BID B complex with C 20-folic acid 1 mg 1 cap PO DAILY blood pressure monitor Automatic, Digital. Dx: I10. Daily As directed, 999 days/lifetime blood sugar diagnostic (FreeStyle Lite Strips) 1 strip miscellaneous TID gabapentin 800 mg PO TID insulin aspart U-100 (Novolog FlexPen U-100 Insulin aspart) See Protocol Inject 3 times a day per sliding scale. 100-129: 2U, 130-179: 4U, 180-229: 6U, 230-279: 8U, 280-329: 10U, 330-379: 12U, 380-429 14U. Call PCP if greater than 400. subcut 3 times a day; 30 days insulin glargine (Lantus Solostar U-100 Insulin) 8 units (0.08 mL) subcut BEDTIME 30 days lancets (FreeStyle Lancets) USE 3 TIMES A DAY FOR DIABETES, 90 days losartan 50 mg PO DAILY miscellaneous medical supply Wheelchair Daily, As directed, 999 days. pen needle, diabetic Use QID,As directed. 90 day supply sodium polystyrene sulfonate grams PO DAILY tramadol 50 mg PO BEDTIME 30 days Tobacco use date assessed: 02/25/24 Dental Screening Dental Screen Date: 02/25/24 HPI fu on dialysis HPI Details 64 y/o female presents to f/u diabetes, chronic conditions. They report numbness/tingling of the feet. They report a callus of her feet. A1c today 11/05/24 6.5%> She is on Novolog, Lantus 8 units. She gets a diabetic eye exam and follows up with an eye doctor. Continues to get dialysis 3 days a week. PFSH Medical History (Updated 11/05/24 @ 14:51 by Scott Patrick MD) Gastroparesis Chronic kidney disease History of neuropathy Orthostatic hypotension Feeling of incomplete bladder emptying Acute hyperglycemia Depression Diabetes mellitus, insulin dependent (IDDM), controlled HTN (hypertension) Surgical History H/O elbow surgery Hx of appendectomy Family History Father Type 2 diabetes mellitus Mother Type 2 diabetes mellitus Brother Substance use disorder Son Substance use disorder Other Mental health disorder Social History Household Members: Significant Other and Children Housing: House Alcohol intake: never Comment: sleeping Patient Tobacco Use Status: Never used Tobacco e-Cigarette/Vaping Use: Never Used Second Hand Smoke Exposure: No service: No Current occupational status: disabled Current occupational exposures/hazards: No Cognitive needs: No Hearing needs: No Vision needs: No Questionnaire Thrive Questionnaire Date Thrive assessed: 02/25/24 CHERYLE-7 AMB Questionnaire CHERYLE-7 Date CHERYLE - 7 assessed: 02/25/24 Source: Developed by Drs. Carlos Nelson, Miriam Wan, Franky Burnham and colleagues, with an educational janine from [employer]. Review of Systems Const Denies chills, Denies fatigue, Denies fever(s), Denies headache(s) and Denies weakness ENT Denies dizziness and Denies headache(s) Card Denies dyspnea Resp Denies cough, Denies dyspnea, Denies wheezing and Denies other (shortness of breath) Musc Denies numbness and Denies tingling Neuro Denies dizziness, Denies headache(s), Denies numbness, Denies tingling and Denies weakness Psych Denies anxiety and Denies depression Endo Denies fatigue Aller/Immun Denies wheezing Physical exam (Primary Care) Vital Signs: Last Vital Signs Temp 98.7 F 11/05/24 14:19 Pulse 83 11/05/24 14:19 Resp 16 11/05/24 14:19 BP 160/60 H 11/05/24 14:19 Pulse Ox 98 11/05/24 14:19 Oxygen Delivery Method Room Air 11/05/24 14:19 BMI result Body Mass Index 24.6 Tobacco/Smoking Status: Tobacco use Status Tobacco use date assessed 02/25/24 11/05/24 14:07 Patient Tobacco Use Status Never used Tobacco 11/05/24 14:07 e-Cigarette/Vaping Use Never Used 11/05/24 14:07 Thrive Assessment: Date of Thrive Assessment Date Thrive assessed 02/25/24 11/05/24 14:07 Const General: well developed; No acute distress Nutritional Appearance: well nourished Orientation/consciousness: patient oriented x3 HENMT Head: Yes normocephalic and Yes atraumatic Eyes General: appearance normal, both eyes and all related structures Pupils: Equal, round and reactive pupils present EOM: EOMs intact bilaterally Resp Effort & Inspection: normal respiratory effort Auscultation: clear to auscultation bilaterally Cardio Rate: regular rate Rhythm: regular rhythm Heart sounds: S1 normal heart sound present, S2 normal heart sound present, no gallops, no murmurs and no rubs Neuro General: patient oriented x3 and gait normal Cranial nerves: Yes Equal, round and reactive pupils present Psych Affect: normal affect Results AMB Hemoglobin A1c AMB Hemoglobin A1c 6.5 % Last Edit by Manolo Yusuf CMA on 11/05/24 17:26 Results Reviewed Results Reviewed: Laboratory Last Values Hgb A1c (Clinic) 6.5 % (4.0-6.0) H 11/05/24 17:22 Coding Level of Care Code Est Pt Level 4 (04451) Diagnoses Diabetic neuropathy E11.40 Chronic kidney disease N18.9 HTN (hypertension) I10 Foot callus L84 Diabetes type 2, controlled E11.9 Assessment & Plan Assessment & Plan (1) Diabetic neuropathy: Code(s): E11.40 - Type 2 diabetes mellitus with diabetic neuropathy, unspecified Category: Medical Plan: Patient?has?neuropathy?in?bilateral?lower?extremities?with?decreased?sensation?at?bilateral?toes,?food?and?to?her?proximal?ankles. Continue?to?blood?sugars?controlled (2) Chronic kidney disease: Comment: stage 3 Code(s): N18.9 - Chronic kidney disease, unspecified Category: Medical Plan: On?dialysis?3?times?a?week?(Saturday,?Saturday,?Saturday) She?is?tolerating?this?although?she?notes?fatigue?after?being?dialyzed No?fluid?shifts?noted.??Patient?is?breathing?easily?no?lower?extremity?edema Follow-up?with?nephrology?as?recommended (3) HTN (hypertension): Code(s): I10 - Essential (primary) hypertension Category: Medical Plan: Blood?pressure?is?elevated?but?her?pressures?drop?after?being?dialyzed?so?nephrology?is?allowing?blood?pressures?to?run?a?little?high Continue?medications Follow-up?with?nephrology (4) Foot callus: Code(s): L84 - Corns and callosities Category: Medical Plan: Patient?has?diabetes,?neuropathy?and?foot?calluses. Patient?has?a?1?cm?crack/wound?in?callus?at?distal?right?lateral?foot?just?proximal?to?5th?toe.??This?does?not?appear?to?be?infected?at?this?time She?will?a?triple?antibiotic?ointment?and?keep?covered. I?am?referring?her?to?Podiatry She?will?let?me?know?if?this?becomes?infected.??Would?refer?to?wound?care (5) Diabetes type 2, controlled: Code(s): E11.9 - Type 2 diabetes mellitus without complications Category: Medical Plan: A1c?6.5%?is?controlled. Continue?Lantus?NovoLog?sliding?scale She?is?testing?blood?sugars?with?her?meals?to?adjust?her?sliding?scale?in?testing?in?the?morning?were?her?fasting?blood?sugar. This?is?4?times?a?day?but?insurance?is?only?a?4?3?times?a?day. Will?get?a?prior?authorization?as?she?should?testing?4?times?a?day?as?appropriate Orders: Orders AMB Hemoglobin A1c 11/05/24 E11.9 - Type 2 diabetes mellitus without complications Referrals Podiatry Referral E11.40 - Type 2 diabetes mellitus with diabetic neuropathy, unspecified, E11.9 - Type 2 diabetes mellitus without complications, L84 - Corns and callosities, S91.309A - Unspecified open wound, unspecified foot, initial encounter Medications: Changed From lancets (FreeStyle Lancets) USE 4 TIMES A DAY FOR DIABETES, 90 days 400 ea 0RF E11.9 - Type 2 diabetes mellitus without complications To lancets (FreeStyle Lancets) USE 3 TIMES A DAY FOR DIABETES, 90 days E11.9 - Type 2 diabetes mellitus without complications
[2024-11-05 14:19] VITALS: BP 160/60; PULSE 83; RESP 16; TEMP 37.1; O2SAT 98; BMI 24.6
== END 2024-11-05 14:57 | disposition home or self-care (01) ==
PROVIDERS: PCP Family Medicine; Visit Provider Family Medicine
DX: E11.9 Type 2 diabetes mellitus without complications (principal)

== ENCOUNTER → 2024-11-05 13:54 | Outpatient (BNVA) | payer MEDICARE, MEDICAID, SELFPAY | PROVIDERS: PCP Family Medicine; Visit Provider Family Medicine | DX: E11.40 Type 2 diabetes mellitus with diabetic neuropathy, unspecified (principal); E11.22 Type 2 diabetes mellitus with diabetic chronic kidney disease; I12.9 Hypertensive chronic kidney disease with stage 1 through stage 4 chronic kidney disease, or unspecified chronic kidney disease; N18.9 Chronic kidney disease, unspecified; L84 Corns and callosities; S91.309A Unspecified open wound, unspecified foot, initial encounter; X58.XXXA Exposure to other specified factors, initial encounter; Y93.9 Activity, unspecified; Y92.9 Unspecified place or not applicable; Y99.9 Unspecified external cause status; Z99.2 Dependence on renal dialysis | CPT/HCPCS: 83036; 99212 ==

== ENCOUNTER 2025-02-02 14:12 | Outpatient (REF) | payer MEDICARE, MEDICAID, SELFPAY ==
--- OUTSIDE RECORDS SUMMARY | 2025-02-02 16:58 | XMS_ITS | Encounter Summary ---
Author Organization [facility] Address [address] [place] [phone] Phone Care Team Providers Care Professor Of Food Biochemistry Name Role Phone Scott Patrick MD Primary Care Provider Encounter Details Date Type Department Care Team (Late st Contact Info) Description 01/06/2025 Treatment [facility] [address] [address] Leon Calle MD [address] [address] Social History Tobacco Use Types Packs/Day Years Used Date Smoking Tobacco: Never Smokeless Tobacco: Never Alcohol Use Standard Drinks/Week Comments No 0 (1 standard drink = 0.6 oz pur e alcohol) Comments Unknown Sex and Gender Information Value Date Recorded Sex Assigned at Not on file Legal Sex Female 4:57 PM EST Gender Identity Not on file Sexual Orientation Not on file documented as of this encounter Miscellaneous Notes * Dialysis Note - Leon Calle MD - 01/06/2025 12:00 AM EST Patient: Celsa Hicks : 1960 Note Type: Dialysis Rounds-Basic Service Date: 01/06/2025 This patient was personally seen for a basic visit as part of routine monthly dialysis care for end stage renal disease. Attending Farebox Repairer: LEON CALLE MD Dialysis Location: [facility] Schedule: Shift: 2 OVERVIEW Patient is stable. HOME MEDICATIONS Medications reviewed. Current [facility] Outpatient Medications amLODIPine (NORVASC) 2.5 MG tablet TAKE 1 TABLET BY MOUTH 1 TIME EACH DAY. Start Date: 11/22/2024 ferumoxytol (FERAHEME) injection Infuse 510 mg into a venous catheter Once Start Date: freestyle lancets Start Date: 09/07/2021 FREESTYLE LITE TEST STRP Start Date: 09/18/2021 furosemide (LASIX) 20 MG tablet TAKE 2 TABLETS (40 MG TOTAL) BY MOUTH IN THE MORNING AND 2 TABLETS (40 MG TOTAL) IN THE EVENING. Start Date: 04/11/2023 gabapentin (NEURONTIN) tablet Take 300 mg by mouth in the morning and 300 mg in the evening and 300 mg before bedtime. Start Date: gabapentin (NEURONTIN) tablet TAKE 1 TABLET BY MOUTH THREE TIMES A DAY FOR 30 DAYS Start Date: 10/03/2022 insulin aspart (NovoLOG) injection Start Date: insulin glargine (LANTUS) injection 100 units/mL Inject 8 Units under the skin every night Start Date: ketorolac (ACULAR) ophthalmic solution 0.4% 1 drop 4 (four) times a day Start Date: losartan (COZAAR) 100 MG tablet TAKE 1 TABLET BY MOUTH EVERY DAY Start Date: 11/02/2024 Retacrit 02874 UNIT/ML solution INJECT 40,000 UNITS UNDER THE SKIN EVERY 2 WEEKS Start Date: 10/21/2022 sodium bicarbonate tablet Take 2 tablets (1,300 mg total) by mouth in the morning and 2 tablets (1,300 mg total) in the evening and 2 tablets (1,300 mg total) before bedtime. Start Date: 01/24/2023 traMADol (ULTRAM) tablet 50 mg Take 50 mg by mouth every night Start Date: Current [facility] Allergies Allergen: PENICILLINS Reaction: Other (see comments) Severity: High BP AND FLUID ASSESSMENT Acceptable blood pressure. Fluid status acceptable. ADEQUACY ASSESSMENT Kt/V, Natural Log 1.83 (12/30/24) 1.78 (11/25/24) 1.87 (10/21/24) UREA REDUCTION RATIO (%) 81 (12/30/24) 78 (11/25/24) 80 (10/21/24) BUN 36 (12/30/24) Test Canceled (12/23/24) 83 (11/25/24) BUN Post Dialysis 7 (12/30/24) 10 (12/23/24) 18 (11/25/24) Creatinine 6.40 (12/30/24) 7.99 (11/25/24) 6.45 (10/21/24) Bicarbonate (CO2) 28 (12/30/24) 21 (11/25/24) 24 (10/21/24) Sodium 136 (12/30/24) 136 (11/25/24) 138 (10/21/24) ANEMIA ASSESSMENT Hgb 10.1 (12/23/24) 10.2 (12/09/24) 9.9 (11/25/24) Iron Saturation (TSat) 16 (12/30/24) 66 (11/25/24) 40 (10/21/24) Ferritin 1,902 (12/30/24) 1,286 (11/25/24) 1,250 (10/21/24) Iron 30 (12/30/24) 140 (11/25/24) 83 (10/21/24) TIBC 190 (12/30/24) 213 (11/25/24) 209 (10/21/24) MCV 97.0 (12/23/24) 93.2 (11/25/24) 94.6 (10/21/24) Platelets 366 (12/23/24) 293 (11/25/24) 296 (10/21/24) BMM ASSESSMENT Calcium, Adjusted Total 9.1 12/30/24 8.9 11/25/24 9.5 10/21/24 Calcium 9.1 12/30/24 8.8 11/25/24 9.5 10/21/24 Phosphorus, Serum 5.0 12/30/24 7.2 11/25/24 6.4 10/21/24 Ca*PO4 45.5 12/30/24 63.4 11/25/24 60.8 10/21/24 PTH, Intact 483 11/25/24 Vitamin D, 25-Hydroxy 5 11/25/24 Magnesium 2.4 12/30/24 2.9 11/25/24 2.7 10/21/24 Alkaline Phosphatase 96 12/30/24 118 11/25/24 111 10/21/24 Aluminum 3 11/25/24 NUTRITION ASSESSMENT Albumin 4.2 12/30/24 3.9 11/25/24 4.1 10/21/24 Potassium 4.4 12/30/24 6.1 11/25/24 5.6 10/21/24 Hemoglobin A1C 6.4 11/25/24 ADDITIONAL LABS White Blood Cells 7.7 (12/23/24) 9.8 (11/25/24) 8.9 (10/21/24) Cholesterol 192 (11/25/24) HDL 46 (11/25/24) LDL-Calc 105 (11/25/24) Triglycerides 203 (11/25/24) Hep B Surface Antibody 285 (11/25/24) 224 (10/28/24) Uric Acid 5.3 (11/25/24) Signed by: LEON CALLE MD on 01/06/2025 at 08:56:05 PM documented in this encounter Plan of Treatment Not on file documented as of this encounter Visit Diagnoses Not on filedocumented in this encounter Care Teams Professor Of Food Biochemistry Relationship Specialty Start Date End Date Scott Patrick MD [address] [address] PCP - General 11/28/20 documented as of this encounter
--- OUTSIDE RECORDS SUMMARY | 2025-02-02 16:58 | XMS_ITS | Encounter Summary ---
Author Organization [facility] Address [address] [address] Phone Care Team Providers Care Yield Analyst Name Role Phone Scott Patrick MD Primary Care Provider [phone] Encounter Details Date Type Department Care Team (Late st Contact Info) Description 01/27/2025 Treatment [facility] [address] [address] Leon Calle MD [address] [address] End stage renal disease; Dependence on renal dialysis Social History Tobacco Use Types Packs/Day Years [...] Dialysis Note - Leon Calle MD - 01/27/2025 12:00 AM EDT Patient: Celsa Hicks : 1960 Note Type: Dialysis Rounds-Basic Service Date: 01/27/2025 This patient was personally seen for a basic visit as part of routine monthly dialysis care for end stage renal disease. Attending Pen Or Pencil Assembly Machine Operator: LEON CALLE MD Dialysis Location: [facility] Schedule: Shift: 2 OVERVIEW Patient is stable. HOME MEDICATIONS Medications reviewed. Current [facility] Outpatient Medications amLODIPine (NORVASC) 2.5 MG tablet [...] MOUTH EVERY DAY Start Date: 11/02/2024 Retacrit 31726 UNIT/ML solution INJECT 40,000 UNITS UNDER THE [...] status acceptable. ADEQUACY ASSESSMENT Kt/V, Natural Log 1.52 (01/20/25) 1.83 (12/30/24) 1.78 (11/25/24) UREA REDUCTION RATIO (%) 73 (01/20/25) 81 (12/30/24) 78 (11/25/24) BUN 45 (01/20/25) 36 (12/30/24) Test Canceled (12/23/24) BUN Post Dialysis 12 (01/20/25) 7 (12/30/24) 10 (12/23/24) Creatinine 5.58 (01/20/25) 6.40 (12/30/24) 7.99 (11/25/24) Bicarbonate (CO2) 26 (01/20/25) 28 (12/30/24) 21 (11/25/24) Sodium 137 (01/20/25) 136 (12/30/24) 136 (11/25/24) ANEMIA ASSESSMENT Hgb 10.5 (01/20/25) 10.1 (12/23/24) 10.2 (12/09/24) Iron Saturation (TSat) 27 (01/20/25) 16 (12/30/24) 66 (11/25/24) Ferritin 1,366 (01/20/25) 1,902 (12/30/24) 1,286 (11/25/24) Iron 54 (01/20/25) 30 (12/30/24) 140 (11/25/24) TIBC 203 (01/20/25) 190 (12/30/24) 213 (11/25/24) MCV 97.1 (01/20/25) 97.0 (12/23/24) 93.2 (11/25/24) Platelets 348 (01/20/25) 366 (12/23/24) 293 (11/25/24) BMM ASSESSMENT Calcium, Adjusted Total 9.6 01/20/25 9.1 12/30/24 8.9 11/25/24 Calcium 9.6 01/20/25 9.1 12/30/24 8.8 11/25/24 Phosphorus, Serum 5.1 01/20/25 5.0 12/30/24 7.2 11/25/24 Ca*PO4 49.0 01/20/25 45.5 12/30/24 63.4 11/25/24 PTH, Intact 483 11/25/24 Vitamin D, 25-Hydroxy 5 11/25/24 Magnesium 2.7 01/20/25 2.4 12/30/24 2.9 11/25/24 Alkaline Phosphatase 121 01/20/25 96 12/30/24 118 11/25/24 Aluminum 3 11/25/24 NUTRITION ASSESSMENT Albumin 4.1 01/20/25 4.2 12/30/24 3.9 11/25/24 Potassium 5.3 01/20/25 4.4 12/30/24 6.1 11/25/24 Hemoglobin A1C 6.4 11/25/24 ADDITIONAL LABS White Blood Cells 8.6 (01/20/25) 7.7 (12/23/24) 9.8 (11/25/24) Cholesterol 192 (11/25/24) HDL 46 (11/25/24) LDL-Calc 105 (11/25/24) Triglycerides 203 (11/25/24) Hep B Surface Antibody 285 (11/25/24) 224 (10/28/24) Uric Acid 5.3 (11/25/24) Signed by: LEON CALLE MD on 01/27/2025 at 10:38:16 PM documented in this encounter Plan of Treatment Not on file documented as of this encounter Visit Diagnoses Diagnosis End stage renal disease Dependence on renal dialysis documented in this encounter Care Teams Yield Analyst Relationship Specialty Start Date End Date Scott Patrick MD [address] [address] PCP - General 11/28/20 documented as of this encounter
--- OUTSIDE RECORDS SUMMARY | 2025-02-02 16:58 | XMS_ITS | Encounter Summary ---
Author Organization [facility] Address [address] [address] Phone Care Team Providers Care Abnormal Psychology Teacher Name Role Phone Scott Patrick MD Primary Care Provider Encounter Details Date Type Department Care Team (Late st Contact Info) Description 01/18/2025 Treatment [facility] [address] [address] Jose Calle MD [address] [address] End stage renal disease; Dependence [...] encounter Miscellaneous Notes * Dialysis Note - Jose Calle MD - 01/18/2025 12:00 AM EST Patient: Celsa Hicks : 1960 Note Type: Dialysis Rounds-Comp Service Date: 01/18/2025 This patient was personally seen for a complete visit as part of routine monthly dialysis care for end stage renal disease. Attending Application Support Intern: JOSE CALLE MD Dialysis Location: [facility] Schedule: Shift: 2 OVERVIEW Patient is stable. HOME MEDICATIONS Medications reviewed. Current [facility] Outpatient Medications amLODIPine (NORVASC) 2.5 MG tablet TAKE 1 TABLET BY MOUTH 1 TIME EACH DAY. Start Date: 11/22/2024 azithromycin (ZITHROMAX) 250 MG tablet Take 2 tablets the first day, then 1 tablet daily for 4 days. Start Date: 01/15/2025 ferumoxytol (FERAHEME) injection Infuse 510 mg into [...] MOUTH EVERY DAY Start Date: 11/02/2024 Retacrit 60385 UNIT/ML solution INJECT 40,000 UNITS UNDER THE [...] blood pressure. Fluid status acceptable. ADEQUACY ASSESSMENT Target met. Prescription compliance acceptable. Kt/V, Natural Log 1.83 (12/30/24) 1.78 (11/25/24) 1.87 (10/21/24) UREA REDUCTION RATIO (%) 81 (12/30/24) 78 (11/25/24) 80 (10/21/24) BUN 36 (12/30/24) Test Canceled (12/23/24) 83 (11/25/24) BUN Post Dialysis 7 (12/30/24) 10 (12/23/24) 18 (11/25/24) Creatinine 6.40 (12/30/24) 7.99 (11/25/24) 6.45 (10/21/24) Bicarbonate (CO2) 28 (12/30/24) 21 (11/25/24) 24 (10/21/24) Sodium 136 (12/30/24) 136 (11/25/24) 138 (10/21/24) ACCESS ASSESSMENT Vascular access examined. Current access is permanent and functioning well. ANEMIA ASSESSMENT Anemia targets met. Continue current SANG dose. Iron adjusted per protocol. Hgb 10.1 (12/23/24) 10.2 (12/09/24) 9.9 (11/25/24) Iron Saturation (TSat) 16 (12/30/24) 66 (11/25/24) 40 (10/21/24) Ferritin 1,902 (12/30/24) 1,286 (11/25/24) 1,250 (10/21/24) Iron 30 (12/30/24) 140 (11/25/24) 83 (10/21/24) TIBC 190 (12/30/24) 213 (11/25/24) 209 (10/21/24) MCV 97.0 (12/23/24) 93.2 (11/25/24) 94.6 (10/21/24) Platelets 366 (12/23/24) 293 (11/25/24) 296 (10/21/24) BMM ASSESSMENT PTH within target. Phosphorus controlled. Calcium controlled. Bone and mineral metabolism parameters reviewed. Calcium, Adjusted Total 9.1 12/30/24 8.9 11/25/24 9.5 10/21/24 Calcium 9.1 12/30/24 8.8 11/25/24 9.5 10/21/24 Phosphorus, Serum 5.0 12/30/24 7.2 11/25/24 6.4 10/21/24 Ca*PO4 45.5 12/30/24 63.4 11/25/24 60.8 10/21/24 PTH, Intact 483 11/25/24 Vitamin D, 25-Hydroxy 5 11/25/24 Magnesium 2.4 12/30/24 2.9 11/25/24 2.7 10/21/24 Alkaline Phosphatase 96 12/30/24 118 11/25/24 111 10/21/24 Aluminum 3 11/25/24 NUTRITION ASSESSMENT Albumin at goal. Potassium controlled. Albumin 4.2 12/30/24 3.9 11/25/24 4.1 10/21/24 Potassium 4.4 12/30/24 6.1 11/25/24 5.6 10/21/24 Hemoglobin A1C 6.4 11/25/24 PHYSICAL EXAM Exam performed. Vital Signs Reviewed. Lungs - Clear. CV - Blood pressure noted. No edema. EXT - No ulcers. ADDITIONAL LABS White Blood Cells 7.7 (12/23/24) 9.8 (11/25/24) 8.9 (10/21/24) Cholesterol 192 (11/25/24) HDL 46 (11/25/24) LDL-Calc 105 (11/25/24) Triglycerides 203 (11/25/24) Hep B Surface Antibody 285 (11/25/24) 224 (10/28/24) Uric Acid 5.3 (11/25/24) Signed by: JOSE CALLE MD on 01/18/2025 at 10:42:27 PM documented in this encounter Plan of Treatment Not on file documented as of this encounter Visit Diagnoses Diagnosis End stage renal disease Dependence on renal dialysis documented in this encounter Care Teams Abnormal Psychology Teacher Relationship Specialty Start Date End Date Scott Patrick MD [address] [address] PCP - General 11/28/20 documented as of this encounter
--- OUTSIDE RECORDS SUMMARY | 2025-02-02 16:58 | XMS_ITS | Encounter Summary ---
Author Organization [facility] Address [address] [place] [address] Phone Care Team Providers Care Alodize Machine Operator Name Role Phone Scott Patrick MD Primary Care Provider Reason for Visit * Reason Comments Med Refill Encounter Details Date Type Department Care Team (Late st Contact Info) Description 08/04/2022 Refill [facility] [address] [place] [id number] Micky Gamboa, DO [address] [place] [id number] Social History Tobacco Use Types Packs/Day Years [...] on file documented as of this encounter Plan of Treatment Not on file documented as of this encounter Visit Diagnoses Not on filedocumented in this encounter Care Teams Alodize Machine Operator Relationship Specialty Start Date End Date Scott Patrick MD 10 [facility] [address] [place] [id number] PCP - General 11/28/20 documented as of this encounter
--- OUTSIDE RECORDS SUMMARY | 2025-02-02 16:58 | XMS_ITS | Encounter Summary ---
Author Organization [facility] Address [address] [phone] Phone Care Team Providers Care Unisaw Operator Name Role Phone Scott Patrick MD Primary Care Provider Encounter Details Date Type Department Care Team (Late st Contact Info) Description 01/20/2025 Treatment [facility] [address] [phone] Leon Calle MD [address] [phone] End stage renal disease; Dependence [...] Dialysis Note - Leon Calle MD - 01/20/2025 12:00 AM EST Patient: Celsa Hicks : 1960 Note Type: Dialysis Rounds-Basic Service Date: 01/20/2025 This patient was personally seen for a basic visit as part of routine monthly dialysis care for end stage renal disease. Attending Signal Fitter: LEON CALLE MD Dialysis Location: [facility] Schedule: Shift: 2 OVERVIEW Patient is stable. HOME MEDICATIONS Medications reviewed. Current [facility] Outpatient Medications amLODIPine (NORVASC) 2.5 MG tablet [...] MOUTH EVERY DAY Start Date: 11/02/2024 Retacrit 70008 UNIT/ML solution INJECT 40,000 UNITS UNDER THE [...] (11/25/24) Signed by: LEON CALLE MD on 01/20/2025 at 12:40:34 PM documented in this encounter Plan of Treatment Not on file documented as of this encounter Visit Diagnoses Diagnosis End stage renal disease Dependence on renal dialysis documented in this encounter Care Teams Unisaw Operator Relationship Specialty Start Date End Date Scott Patrick MD [address] [id number] PCP - General 11/28/20 documented as of this encounter
--- OUTSIDE RECORDS SUMMARY | 2025-02-02 16:59 | XMS_ITS | Encounter Summary ---
Author Organization [facility] Address [address] [place] [address] Phone Care Team Providers Care Strategic Intelligence Officer Name Role Phone Scott Patrick MD Primary Care Provider Encounter Details Date Type Department Care Team (Late st Contact Info) Description 04/03/2023 Office Communication [facility] [address] [place] [address] Silvia Rodney RN [address] [place] [address] Social History Tobacco Use Types Packs/Day Years [...] on filedocumented in this encounter Care Teams Strategic Intelligence Officer Relationship Specialty Start Date End Date Scott Patrick MD 10 [facility] [address] [place] [id number] PCP - General 11/28/20 documented as of this encounter
--- OUTSIDE RECORDS SUMMARY | 2025-02-02 16:59 | XMS_ITS | Clinical Summary ---
Author Organization [facility] Address [address] [facility] [address] [place] [address] Phone Care Team Providers [facility] [employer] Name Role Phone Scott Patrick MD Primary Care Provider [phone] Allergies Active Allergy Reactions Criticality Noted Date Comments Penicillins Other (see comments) High 06/29/2021 Medications gabapentin (NEURONTIN) 600 MG tablet Take 300 mg by mouth in the morning and 300 mg in the evening and 300 mg before bedtime. Active insulin aspart (NovoLOG) 100 UNIT/ML injection Active insulin glargine (LANTUS) 100 UNIT/ML injection Inject 8 Units under the skin every night Active traMADol (ULTRAM) 50 MG tablet Take 50 mg by mouth every night Active ketorolac (ACULAR) 0.4 % solution 1 drop 4 (four) times a day Active FREESTYLE LITE test strip 1 Active Lancets (freestyle) lancets 1 Active ferumoxytol (FERAHEME) 510 MG/17ML injection Infuse 510 mg into a venous catheter Once Active Retacrit 73124 UNIT/ML solution INJECT 40,000 UNITS UNDER THE SKIN EVERY 2 WEEKS 2 mL 2 Active gabapentin (NEURONTIN) 800 MG tablet TAKE 1 TABLET BY MOUTH THREE TIMES A DAY FOR 30 DAYS 2 Active sodium bicarbonate 650 MG tablet Take 2 tablets (1,300 mg total) by mouth in the morning and 2 tablets (1,300 mg total) in the evening and 2 tablets (1,300 mg total) before bedtime. 3 Active furosemide (LASIX) 20 MG tablet TAKE 2 TABLETS (40 MG TOTAL) BY MOUTH IN THE MORNING AND 2 TABLETS (40 MG TOTAL) IN THE EVENING. 360 tablet 1 3 Active losartan (COZAAR) 100 MG tablet TAKE 1 TABLET BY MOUTH EVERY DAY 90 tablet 1 4 Active amLODIPine (NORVASC) 2.5 MG tablet TAKE 1 TABLET BY MOUTH 1 TIME EACH DAY. 90 tablet 2 5 Active azithromycin (ZITHROMAX) 250 MG tablet Take 2 tablets the first day, then 1 tablet daily for 4 days. 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 Stage 5 chronic kidney disease 06/13/2022 Renal osteodystrophy 06/13/2022 Anemia in chronic kidney disease 06/13/2022 Chronic kidney disease, stage 4 (severe) 022 Diabetes mellitus 12/05/2021 Type 2 diabetes mellitus wit h diabetic chronic kidney disease 08/17/2021 Stage 3b chronic kidney disease 07/07/2021 Kidney failure 07/06/2021 Orthostatic hypotension 06/29/2021 Hypertensive disorder 10/15/2011 Resolved Problems Problem Noted Date Diagnosed Date Resolved Date Neuropathy due to diabetes mellitus 12/05/2021 05/09/2022 Hyperlipidemia 12/05/2021 05/08/2022 H/O: urinary stone 06/29/2021 Leiomyoma of stomach 08/02/2015 022 Overview (12/05/2021): low grade Sprain of sacroiliac ligament 10/01/2011 07/06/2021 History of clinical finding in subject 09/27/2011 07/06/2021 Disturbance in sleep behavior 05/16/2006 07/06/2021 Overview (07/06/2021): [facility] update Dysthymic disorder 05/16/2006 Pure hypercholesterolemia 04/23/2006 Encounters Date Type Department Care Team Description 01/27/2025 Treatment [facility] [address] [phone] Jose Calle MD End stage renal disease; Dependence on renal dialysis 01/20/2025 Treatment [facility] [address] [address] Jose Calle MD End stage renal disease; Dependence on renal dialysis 01/18/2025 Treatment [facility] [address] [address] Jose Calle MD End stage renal disease; Dependence on renal dialysis 01/06/2025 Treatment [facility] [address] [address]Amaury Angelo [phone] Jose Calle MD 12/30/2024 Treatment [facility] [address] [phone] Angelo [phone] Jose Calle MD 12/28/2024 Treatment [facility] [address] Anthony Angelo-[phone] Jose Calle MD 12/23/2024 Treatment [facility] [address] [address]Amaury Angelo [phone] Jose Calle MD 12/09/2024 Treatment [facility] [address] Anthony Angelo-[phone] Jose Calle MD 12/02/2024 Treatment [facility] [address] Anthony Angelo-[phone] Jose Calle MD 11/25/2024 Treatment [facility] [address] [facility] [address] [place] [address] Jose Calle MD 11/22/2024 Refill [facility] [address] [facility] [address] [place] [address] Jose Calle MD 11/20/2024 Treatment [facility] [address] [facility] [address] [place] [address] Jose Calle MD 11/17/2024 Treatment [facility] [address] [facility] [address] [place] [address] Jose Calle MD 11/09/2024 Treatment [facility] [address] [facility] [address] [place] [phone] Feliberto Peter MD from Last 3 Months Immunizations Name Administration Dates Next Due Influenza, Unspecified 09/22/2020,12/19/2019, Pfizer SARS-COV-2 10/31/2021,01/27/2021,01/05/20 21 Tdap 01/01/2020 Family History Medical History Relation Comments Cancer Brother Diabetes Brother Hypertension Brother Diabetes Father Hypertension Father Diabetes Mother Hypertension Mother Stroke Mother Diabetes Sister Hypertension Sister Relation Status Comments Brother Father Mother Sister Social History Tobacco Use Types Packs/Day Years Used Date Smoking Tobacco: Never Smokeless Tobacco: Never Tobacco Cessation:Counseling Given: Not Answered Alcohol Use Standard Drinks/Week Comments No 0 (1 standard drink = 0.6 oz pur e alcohol) Comments Unknown Sex and Gender Information Value Date Recorded Sex Assigned at Not on file Legal Sex Female 4:57 PM EST Gender Identity Not on file Sexual Orientation Not on file Last Filed Vital Signs Vital Sign Reading Time Taken Comments Blood Pressure 138/60 03/27/2023 3:55 PM EDT Pulse 79 03/27/2023 1:17 PM EDT Temperature - - Respiratory Rate 20 11/28/2022 4:52 PM EST Oxygen Saturation 96% 03/27/2023 1:17 PM EDT Inhaled Oxygen Concentration - - Weight 64.9 kg (143 lb) 03/27/2023 1:17 PM EDT Height 170.2 cm (5' 7 ) 07/17/2022 11:36 AM EDT Body Mass Index 22.4 07/17/2022 11:36 AM EDT Plan of Treatment Health Maintenance Due Date Last Done Comments Breast Cancer Screening 1962 Pneumococcal Vaccine: Pediat rics (0 to 5 Years) and At-Risk Patients (6 to 64 Years) (1 of 2 - PCV) 02/04/1968 Hepatitis B Vaccine (1 of 5 - Risk Dialysis 4-dose series) 1982 Colorectal Cancer Screening: Annual FOBT 2011 Colorectal Cancer Screening: Colonoscopy 2011 Colorectal Cancer Screening: Sigmoidoscopy 2011 Diabetes: Ophthalmology Exam 12/18/2020 05/03/2008 Diabetes: Pedal Pulse Checked 12/18/2020 Diabetes: Sensory Foot Exam 12/18/2020 Diabetes: Visual Foot Exam 12/18/2020 Influenza Vaccine (#1) 2024 0, 12/19/2019, 12/17/2019 Diabetes: Hemoglobin A1C 02/23/2025 11/25/2024, 07/21 Procedures Procedure Name Priority Date/Time Associated Diagnosis Comments TRANSFERRIN SATURATION Routine 3:00 AM EST PROTEIN, TOTAL, SERUM Routine 01/20/2025 3:00 AM EST ELECTROLYTE PANEL Routine 01/20/2025 3:0 0 AM EST MAGNESIUM Routine 01/20/2025 3:00 AM EST LIH (HC) Routine 01/20/2025 3:00 AM EST LACTATE DEHYDROGENASE Routine 01/20/2025 3:00 AM EST GLUCOSE, RANDOM Routine 01/20/2025 3:00 AM EST CREATININE, SERUM Routine 01/20/2025 3:0 0 AM EST BILIRUBIN, TOTAL Routine 01/20/2025 3:00 AM EST AST Routine 01/20/2025 3:00 AM EST ALT Routine 01/20/2025 3:00 AM EST CALCIUM PHOSPHORUS PRODUCT, ADJUSTED (HC) Routine 01/20/2025 3:00 AM EST ALKALINE PHOSPHATASE Routine 01/20/2025 3:00 AM EST FERRITIN Routine 01/20/2025 3:00 AM EST KT/V NATURAL LOG, URR (HC) Routine 01/20/2025 3:00 AM EST CBC AND DIFFERENTIAL Routine 01/20/2025 3:00 AM EST FERRITIN Routine 12/30/2024 3:00 AM EST PROTEIN, TOTAL, SERUM Routine 12/30/2024 3:00 AM EST TRANSFERRIN SATURATION Routine 3:00 AM EST KT/V NATURAL LOG, URR (HC) Routine 12/30/2024 3:00 AM EST MAGNESIUM Routine 12/30/2024 3:00 AM EST ELECTROLYTE PANEL Routine 12/30/2024 3:0 0 AM EST LIH (HC) Routine 12/30/2024 3:00 AM EST LACTATE DEHYDROGENASE Routine 12/30/2024 3:00 AM EST GLUCOSE, RANDOM Routine 12/30/2024 3:00 AM EST CREATININE, SERUM Routine 12/30/2024 3:0 0 AM EST AST Routine 12/30/2024 3:00 AM EST BILIRUBIN, TOTAL Routine 12/30/2024 3:00 AM EST CALCIUM PHOSPHORUS PRODUCT, ADJUSTED (HC) Routine 12/30/2024 3:00 AM EST ALT Routine 12/30/2024 3:00 AM EST ALKALINE PHOSPHATASE Routine 12/30/2024 3:00 AM EST UNSPUN TUBE (HC) Routine 12/23/2024 3:00 AM EST KT/V NATURAL LOG, URR (HC) Routine 12/23/2024 3:00 AM EST CBC AND DIFFERENTIAL Routine 12/23/2024 3:00 AM EST HEMOGLOBIN Routine 12/09/2024 3:00 AM EST HEPATITIS B SURFACE ANTIGEN W/REFL CONFIRM Routine 12/02/2024 3:00 AM EST UNSPUN TUBE (HC) Routine 11/27/2024 3:00 AM EST COLLECTION DATE (HC) Routine 11/27/2024 3:00 AM EST COLLECTION DATE (HC) Routine 11/25/2024 3:00 AM EST ALUMINUM LEVEL Routine 11/25/2024 3:00 AM EST HEPATITIS C ABS W/REFLEX RNA DETECTR Routine 11/25/2024 3:00 AM EST CONFIRMATION TEST HCV Routine 11/25/2024 3:00 AM EST HEMOGLOBIN A1C Routine 11/25/2024 3:00 AM EST URIC ACID Routine 11/25/2024 3:00 AM EST PROTEIN, TOTAL, SERUM Routine 11/25/2024 3:00 AM EST TRANSFERRIN SATURATION Routine 3:00 AM EST ELECTROLYTE PANEL Routine 11/25/2024 3:0 0 AM EST MAGNESIUM Routine 11/25/2024 3:00 AM EST KT/V NATURAL LOG, URR (HC) Routine 11/25/2024 3:00 AM EST LIPID PANEL Routine 11/25/2024 3:00 AM EST LIH (HC) Routine 11/25/2024 3:00 AM EST LACTATE DEHYDROGENASE Routine 11/25/2024 3:00 AM EST GLUCOSE, RANDOM Routine 11/25/2024 3:00 AM EST CREATININE, SERUM Routine 11/25/2024 3:0 0 AM EST BILIRUBIN, TOTAL Routine 11/25/2024 3:00 AM EST ALT Routine 11/25/2024 3:00 AM EST AST Routine 11/25/2024 3:00 AM EST ALKALINE PHOSPHATASE Routine 11/25/2024 3:00 AM EST CALCIUM PHOSPHORUS PRODUCT, ADJUSTED (HC) Routine 11/25/2024 3:00 AM EST VITAMIN D 25 HYDROXY Routine 11/25/2024 3:00 AM EST PTH, INTACT Routine 11/25/2024 3:00 AM EST FERRITIN Routine 11/25/2024 3:00 AM EST HEPATITIS B SURFACE ANTIBODY QUANT Routine 11/25/2024 3:00 AM EST CBC AND DIFFERENTIAL Routine 11/25/2024 3:00 AM EST HEMOGLOBIN Routine 11/04/2024 3:00 AM EST from Last 3 Months Results * LIH (01/20/2025 3:00 AM EST) Only the most recent of3 resultswithin the time period is included. Lipemia Normal Normal [facility] Icterus Normal Normal [facility] Hemolysis Normal Normal [facility] 01/20/2025 3:00 AM EST 01/21/2025 2:56 PM EST us Jose Calle MD LAB [id number] LICITED RESULTS Final Result [facility] [address] [place] [address] * (ABNORMAL) Kt/V Natural Log, URR (01/20/2025 3:00 AM EST) Only the most recent of4 resultswithin the time period is included. Treatment Time 202 min [facility] Pre-Weight, lb 72.6 kg [facility] Post-Weight, lb 70.6 kg [facility] Ultrafiltration Rate 8 <=13 mL/kg/hr [facility] Comment: Recommend achieving Ultrafiltration Rate (UFR) <=10 mL/kg/hr References: Stef GUERRERO et al. Kidney Int. 2010; 79(2):250-257 BUN 45(H) 7 - 25 mg/dL [facility] BUN Post Dialysis 12 7 - 25 mg/dL [facility] UREA REDUCTION RATIO (%) 73 >=65 % [facility] Kt/V Natural Log 1.52 >=1.2 [facility] 01/20/2025 3:00 AM EST 01/21/2025 2:27 PM EST us Jose Calle MD LAB [id number] LICITED RESULTS Final Result Performing Organization Address [facility] Co de Phone Number [facility]PS [facility] [address] [place] [address] * (ABNORMAL) Calcium Phosphorus Product, Adjusted (01/20/2025 3:00 AM EST) Only the most recent of3 resultswithin the time period is included. Albumin 4.1 3.6 - 5.4 g/dL [facility] Calcium 9.6 8.6 - 10.3 mg/dL [facility] Phosphorus, Serum 5.1(H) 2.5 - 5.0 mg/dL [facility] Ca*PO4 49.0 <55.0 mg2/dL2 [facility] Calcium, Adjusted Total 9.6 8.6 - 10.3 mg/dL [facility] CA*PO4 CORRCTD 49.0 <55.0 mg2/dL2 [facility] 01/20/2025 3:00 AM EST 01/21/2025 2:56 PM EST us Jose Calle MD LAB [id number] LICITED RESULTS Final Result Performing Organization Address [facility] de Phone Number [facility]PS [facility] [address] [place] [address] * (ABNORMAL) TSAT (01/20/2025 3:00 AM EST) Only the most recent of3 resultswithin the time period is included. Iron 54 50 - 170 ug/dL [facility] Transferrin 145(L) 250 - 380 mg/dL [facility] TIBC 203(L) 211 - 406 ug/dL [facility] Iron Saturation (TSat) 27 22 - 52 % [facility] 01/20/2025 3:00 AM EST 01/21/2025 2:56 PM EST us Jose Calle MD LAB BLOOD ORDERABLES Final Resu lt Performing Organization Address [facility] Co de Phone Number [facility] [address] [place] [address] * (ABNORMAL) CBC and Differential (01/20/2025 3:00 AM EST) Only the most recent of3 resultswithin the time period is included. Pathologist [facility] DIFFERENTIAL MANUAL, 2 Not Indicated [facility] White Blood Cells 8.6 4.0 - 10.0 K/uL [facility] RBC 3.49(L) 3.93 - 5.22 M/uL [facility] Hgb 10.5(L) 11.2 - 15.7 g/dL [facility] Hemoglobin x 3 31.5(L) 33.6 - 47.1 g/dL [facility] Hematocrit 33.9(L) 34.1 - 44.9 % [facility] MCV 97.1(H) 79.4 - 94.8 fL [facility] MCH 30.1 25.6 - 32.2 pg [facility] MCHC 31.0(L) 32.2 - 35.5 g/dL [facility] Platelets 348 182 - 369 K/uL [facility] RDW 15.1(H) 11.7 - 14.4 % [facility] Neutrophils Relative 57.1 34.0 - 71.1 % [facility] Lymphocytes Relative 31.1 19.3 - 51.7 % [facility] Monocytes 7.2 4.7 - 12.5 % [facility] Eosinophils Relative 3.1 0.7 - 5.8 % [facility] Basophils Relative 0.9 0.1 - 1.2 % [facility] Immature Granulocytes 0.6 0.0 - 1.0 % [facility] 01/20/2025 3:00 AM EST 01/21/2025 1:53 PM EST us Jose Calle MD LAB BLOOD ORDERABLES Final Resu lt Performing Organization Address [facility] Co de Phone Number [facility] [address] [place] [address] * ALT (01/20/2025 3:00 AM EST) Only the most recent of3 resultswithin the time period is included. Pathologist [facility] ALT (SGPT) 18 10 - 49 U/L [facility] 01/20/2025 3:00 AM EST 01/21/2025 2:56 PM EST us Jose Calle MD LAB BLOOD ORDERABLES Final Resu lt Performing Organization Address [facility] Co de Phone Number [facility] [address] [place] [address] * AST (01/20/2025 3:00 AM EST) Only the most recent of3 resultswithin the time period is included. AST (SGOT) 16 <34 U/L [facility] 01/20/2025 3:00 AM EST 01/21/2025 2:56 PM EST us Jose Calle MD LAB BLOOD ORDERABLES Final Resu lt Performing Organization Address [facility] de Phone Number [facility] [address] [place] [address] * Protein, total (01/20/2025 3:00 AM EST) Only the most recent of3 resultswithin the time period is included. Total Protein 7.0 6.4 - 8.9 g/dL [facility] 01/20/2025 3:00 AM EST 01/21/2025 2:56 PM EST us Jose Calle MD LAB BLOOD ORDERABLES Final Resu lt Performing Organization Address [facility] de Phone Number [facility] [address] [place] [address] * (ABNORMAL) Alkaline phosphatase (01/20/2025 3:00 AM EST) Only the most recent of3 resultswithin the time period is included. Alkaline Phosphatase 121(H) 46 - 116 U/L [facility] 01/20/2025 3:00 AM EST 01/21/2025 2:56 PM EST us Jose Calle MD LAB BLOOD ORDERABLES Final Resu lt Performing Organization Address [facility] Co de Phone Number [facility] [address] [place] [address] * Magnesium (01/20/2025 3:00 AM EST) Only the most recent of3 resultswithin the time period is included. Magnesium 2.7 1.9 - 2.7 mg/dL [facility] 01/20/2025 3:00 AM EST 01/21/2025 2:56 PM EST us Jose Calle MD LAB BLOOD ORDERABLES Final Resu lt Performing Organization Address [facility] Co de Phone Number [facility] [address] [place] [address] * Lactate dehydrogenase (01/20/2025 3:00 AM EST) Only the most recent of3 resultswithin the time period is included. LDH 187 120 - 246 U/L [facility] 01/20/2025 3:00 AM EST 01/21/2025 2:56 PM EST us Jose Calle MD LAB BLOOD ORDERABLES Final Resu lt Performing Organization Address [facility] de Phone Number [facility] [address] [place] [address] * (ABNORMAL) Glucose, random (01/20/2025 3:00 AM EST) Only the most recent of3 resultswithin the time period is included. Glucose 166(H) 74 - 109 mg/dL [facility] 01/20/2025 3:00 AM EST 01/21/2025 2:56 PM EST us Jose Calle MD LAB BLOOD ORDERABLES Final Resu lt Performing Organization Address [facility] de Phone Number [facility] [address] [place] [address] * (ABNORMAL) Ferritin (01/20/2025 3:00 AM EST) Only the most recent of3 resultswithin the time period is included. Ferritin 1,366(H) 10 - 291 ng/mL [facility] 01/20/2025 3:00 AM EST 01/21/2025 2:56 PM EST us Jose Calle MD LAB BLOOD ORDERABLES Final Resu Performing Organization Address [facility] Co de Phone Number [facility] [address] [place] [address] * (ABNORMAL) Creatinine, serum (01/20/2025 3:00 AM EST) Only the most recent of3 resultswithin the time period is included. Creatinine 5.58(H) 0.55 - 1.02 mg/dL [facility] 01/20/2025 3:00 AM EST 01/21/2025 2:56 PM EST us Jose Calle MD LAB BLOOD ORDERABLES Final Resu Performing Organization Address [facility] de Phone Number [facility] [address] [place] [address] * (ABNORMAL) Bilirubin, total (01/20/2025 3:00 AM EST) Only the most recent of3 resultswithin the time period is included. Total Bilirubin 0.2(L) 0.3 - 1.2 mg/dL [facility] 01/20/2025 3:00 AM EST 01/21/2025 2:56 PM EST us Jose Calle MD LAB BLOOD ORDERABLES Final Resu Performing Organization Address [facility] de Phone Number [facility] [address] [place] [address] * (ABNORMAL) Electrolyte panel (01/20/2025 3:00 AM EST) Only the most recent of3 resultswithin the time period is included. Sodium 137 136 - 145 mEq/L [facility] Potassium 5.3(H) 3.4 - 5.0 mEq/L [facility] Chloride 99 98 - 107 mEq/L [facility] Bicarbonate (CO2) 26 21 - 31 mEq/L [facility] Anion Gap 12 3 - 14 mEq/L [facility] 01/20/2025 3:00 AM EST 01/21/2025 2:56 PM EST us Jose Calle MD LAB BLOOD ORDERABLES Final Resu lt Performing Organization Address [facility] Co de Phone Number [facility] [address] [place] [address] * Unspun Tube (12/23/2024 3:00 AM EST) Only the most recent of2 resultswithin the time period is included. Unspun Tube [place] [facility] Comment:Received uncentrifug ed specimen. Unable to perform testing. 12/23/2024 3:00 AM EST us Jose Calle MD LAB [id number] LICITED RESULTS Final Result Performing Organization Address [facility] de Phone Number [facility] [address] [place] [address] * (ABNORMAL) Hemoglobin (12/09/2024 3:00 AM EST) Only the most recent of2 resultswithin the time period is included. Hgb 10.2(L) 11.2 - 15.7 g/dL [facility] Hemoglobin x 3 30.6(L) 33.6 - 47.1 g/dL [facility] 12/09/2024 3:00 AM EST 12/10/2024 2:29 PM EST us Jose Calle MD LAB BLOOD ORDERABLES Final Resu lt Performing Organization Address [facility] de Phone Number [facility] [address] [place] [address] * Hepatitis B Surface Ag w/Reflex Confirmation (12/02/2024 3:00 AM EST) Hep B Surface Antigen Negative Negative [facility] 12/02/2024 3:00 AM EST 12/03/2024 2:54 PM EST us Jose Calle MD LAB BLOOD ORDERABLES Final Resu lt Performing Organization Address [facility] de Phone Number [facility] [address] [place] [address] * Collection Date (11/27/2024 3:00 AM EST) Only the most recent of2 resultswithin the time period is included. Collection Date See Comment [facility] Comment: Patient sample received may exceed specimen stability, based on the collection date electronically provided. ??When reviewing patient results, verify collection information and consider specimen stability before acting on any critical or panic results. 11/27/2024 3:00 AM EST us Jose Calle MD LAB [id number] LICITED RESULTS Final Result Performing Organization Address [facility] de Phone Number [facility] [address] [place] [address] * Confirmation Test HCV (11/25/2024 3:00 AM EST) Hep C Ab Confirmation Not needed [facility] 11/25/2024 3:00 AM EST 11/26/2024 3:50 PM EST us Jose Calle MD LAB BLOOD ORDERABLES Final Resu lt Performing Organization Address [facility] de Phone Number [facility] [address] [place] [address] * HEPATITIS C ABS W/REFLEX RNA DETECTR (11/25/2024 3:00 AM EST) Hep C Virus Ab Non-Reacti ve Non-Reacti ve [facility] 11/25/2024 3:00 AM EST 11/26/2024 3:44 PM EST us Jose Calle MD LAB [id number] LICITED RESULTS Final Result Performing Organization Address [facility] de Phone Number [facility] [address] [place] [address] * Aluminum level (11/25/2024 3:00 AM EST) Aluminum 3 1 - 20 ug/L [facility] 11/25/2024 3:00 AM EST 11/26/2024 4:02 PM EST us Jose Calle MD LAB BLOOD ORDERABLES Final Resu lt Performing Organization Address [facility] Co de Phone Number [facility] [address] [place] [address] * Vitamin D 25 Hydroxy (11/25/2024 3:00 AM EST) Vitamin D, 25-Hydroxy 5 30 - 100 ng/mL [facility] Comment: Status ? Adult ?? Pediatric Deficient: ? <20 ? <15 Insufficient: ??20-29 ?? 15-19 Sufficient: ?30-100 ??20-100 11/25/2024 3:00 AM EST 11/26/2024 3:44 PM EST us Jose Calle MD LAB BLOOD ORDERABLES Final Resu lt Performing Organization Address [facility] de Phone Number [facility] [address] [place] [address] * Hepatitis B Surface Antibody (11/25/2024 3:00 AM EST) Hep B Surface Antibody 285 mIU/mL [facility] Comment: Interpretation: <10: No Immunity >=10: Probable Immunity 11/25/2024 3:00 AM EST 11/26/2024 3:44 PM EST us Jose Calle MD LAB BLOOD ORDERABLES Final Resu lt Performing Organization Address [facility] de Phone Number [facility] [address] [place] [address] * Uric Acid (11/25/2024 3:00 AM EST) Uric Acid 5.3 2.3 - 6.6 mg/dL [facility] 11/25/2024 3:00 AM EST 11/26/2024 3:44 PM EST us Jose Calle MD LAB BLOOD ORDERABLES Final Resu lt Performing Organization Address [facility] de Phone Number [facility] [address] [place] [address] * PTH, Intact (11/25/2024 3:00 AM EST) PTH, Intact 483 160 - 721 pg/mL [facility] Comment: Suggested (KDIGO) ESRD maintenance range is two to nine times the upper normal limit (80.1 pg/mL) for the laboratory. 11/25/2024 3:00 AM EST 11/26/2024 3:44 PM EST us Jose Calle MD LAB BLOOD ORDERABLES Final Resu lt Performing Organization Address [facility] de Phone Number [facility] [address] [place] [address] * (ABNORMAL) Hemoglobin A1c (11/25/2024 3:00 AM EST) Hemoglobin A1C 6.4(H) <5.7 % [facility] Comment: Methodology: Enzymatic HbA1c (NGSP %) ?Suggested Diagnosis >6.4% ? Diabetic 5.7-6.4% ?Pre-Diabetic <5.7% ? Non-Diabetic Diabetic Glucose Control Evaluation: Therapeutic action suggested at >8.0% ADA recommends a glycemic goal of <7.0% 11/25/2024 3:00 AM EST 11/26/2024 3:50 PM EST us Jose Calle MD LAB BLOOD ORDERABLES Final Resu lt Performing Organization Address [facility] de Phone Number [facility] [address] [place] [address] * (ABNORMAL) Lipid panel (11/25/2024 3:00 AM EST) Cholesterol 192 <200 mg/dL [facility] Comment: Optimal: ?<200 Borderline: ? 200-239 Higher Risk: ?>239 Triglycerides 203(A) <150 mg/dL [facility] Comment: Optimal: ?<150 Borderline High: ??150-199 High: ? 200-499 Very High: ?>499 HDL 46(A) >59 mg/dL [facility] Comment: Desirable: ?>59 Higher Risk: ?<40 LDL-Calc 105(A) <100 mg/dL [facility] Comment: Optimal: ?<100 Above Optimal: ?100-129 Borderline High: ??130-159 High: ? 160-189 Very High: ?>189 VLDL Cholesterol Sushil 41(A) <30 mg/dL [facility] Comment: Optimal: ?<30 Borderline High: ??30-39 High: ? 40-99 Very High: ?>99 Chol/HDL Ratio 4.2(A) <3.3 [facility] Comment: Optimal: ?<3.3 Higher Risk: ?>6.2 11/25/2024 3:00 AM EST 11/26/2024 3:44 PM EST us Jose Calle MD LAB BLOOD ORDERABLES Final Resu lt [facility]PS [facility] [address] [place] [address] from Last 3 Months Insurance [place] Care Teams [employer] Relationship Specialty Start Date End Date Scott Patrick MD [address] [facility] [address] [place] [address] PCP - General 11/28/20
== END 2025-02-02 14:13 | disposition home or self-care (01) ==
LOC: HO.MAMMO 14:12
PROVIDERS: PCP Family Medicine; Visit Provider Family Medicine
DX: Z12.31 Encounter for screening mammogram for malignant neoplasm of breast (principal)
CPT/HCPCS: 77063; 77067

== ENCOUNTER → 2025-02-02 14:15 | Outpatient (BNV) | payer MEDICARE, MEDICAID, SELFPAY | PROVIDERS: PCP Family Medicine; Visit Provider Internal Medicine | DX: Z12.31 Encounter for screening mammogram for malignant neoplasm of breast (principal) | CPT/HCPCS: 77063; 77067 ==

== ENCOUNTER 2025-02-25 13:38 | Outpatient (AMB) | payer MEDICARE, MEDICAID, SELFPAY ==
--- NOTE | 2025-02-25 13:49 | A.OFFPC_ITS ---
Vital Signs 02/25/25 13:52 BMI Reason not done Patient refused/unable BP 130/60 Blood Pressure Location Rt brachial Position Sitting Respiration 14 Pulse 81 Pulse Source Pulse Oximeter Intake Visit Reasons: f/u chronic conditions Intake Note: Follow up Mixing Machine Feeder Required: No Allergies Penicillins [PENICILLINS] Allergy (Severe, Verified 02/25/25 13:50) INVOLUNTARY SPASMS Tobacco use date assessed: 02/25/24 Dental Screening Dental Screen Date: 02/25/24 HPI f/u chronic conditions HPI Details Patient?presents?to?follow-up?chronic?conditions. A1c?today?5.6%. She?is?taking?Lantus?and?NovoLog?sliding?scale?for?meals No?significant?low?blood?sugars On?dialysis?3?times?a?week?(Saturday,?Saturday,?Saturday) She?is?tolerating?this?although?she?notes?fatigue?after?being?dialyzed No?fluid?shifts?noted.??Patient?is?breathing?easily?no?lower?extremity?edema Still?has?some?tingling?in?her?feet.??She?had?seen?a?lodging facilities attendant?to?improved?the? calluses?on?her?feet?they?are?returning. [facility] Medical History (Updated 11/05/24 @ 14:51 by Scott Patrick MD) Gastroparesis Chronic kidney disease History of neuropathy Orthostatic hypotension Feeling of incomplete bladder emptying Acute hyperglycemia Depression Diabetes mellitus, insulin dependent (IDDM), controlled HTN (hypertension) Surgical History H/O elbow surgery Hx of appendectomy Family History Father Type 2 diabetes mellitus Mother Type 2 diabetes mellitus Brother Substance use disorder Son Substance use disorder Other Mental health disorder Social History Household Members: Significant Other and Children Housing: House Alcohol intake: never Comment: sleeping Patient Tobacco Use Status: Never used Tobacco e-Cigarette/Vaping Use: Never Used Second Hand Smoke Exposure: No service: No Current occupational status: disabled Current occupational exposures/hazards: No Cognitive needs: No Hearing needs: No Vision needs: No Questionnaire Thrive Questionnaire Date Thrive assessed: 02/25/24 CHERYLE-7 AMB Questionnaire CHERYLE-7 Date CHERYLE - 7 assessed: 02/25/24 Source: Developed by Drs. Carlos Nelson, Miriam Wan, Franky Burnham and colleagues, with an educational janine from [employer]. Review of Systems Const Denies chills, Denies fatigue, Denies fever(s), Denies headache(s) and Denies weakness ENT Denies dizziness and Denies headache(s) Card Denies chest pain, Denies lightheadedness, Denies dyspnea and Denies other (Palpitations) Resp Denies cough, Denies dyspnea, Denies wheezing and Denies other ( shortness of breath) Musc Denies numbness and Denies tingling Neuro Denies dizziness, Denies headache(s), Denies numbness, Denies tingling, Denies paresthesias and Denies weakness Psych Denies anxiety and Denies depression Endo Denies fatigue Aller/Immun Denies wheezing Physical exam (Primary Care) Vital Signs: Last Vital Signs Pulse 81 02/25/25 13:52 Resp 14 02/25/25 13:52 BP 130/60 02/25/25 13:52 Tobacco/Smoking Status: Tobacco use Status Tobacco use date assessed 02/25/24 02/25/25 13:51 Patient Tobacco Use Status Never used Tobacco 02/25/25 13:51 e-Cigarette/Vaping Use Never Used 02/25/25 13:51 Thrive Assessment: Date of Thrive Assessment Date Thrive assessed 02/25/24 02/25/25 13:51 Const General: no acute distress and well developed Nutritional Appearance: well nourished Orientation/consciousness: patient oriented x3 HENMT Head: Yes normocephalic and Yes atraumatic Eyes General: appearance normal, both eyes and all related structures Pupils: Equal, round and reactive pupils present EOM: EOMs intact bilaterally Resp Effort & Inspection: normal respiratory effort Auscultation: clear to auscultation bilaterally Cardio Rate: regular rate Rhythm: regular rhythm Heart sounds: S1 normal heart sound present, S2 normal heart sound present, no gallops, no murmurs and no rubs Neuro Other: Wheelchair-bound General: patient oriented x3 Cranial nerves: Yes Equal, round and reactive pupils present Psych Affect: normal affect Results AMB Hemoglobin A1c AMB Hemoglobin A1c 5.6 % Last Edit by Jeannine Blackwell CMA on 02/25/25 14:03 Coding Level of Care Code Est Pt Level 4 (69660) Diagnoses Diabetes type 2, controlled E11.9 HTN (hypertension) I10 Renal failure N19 Diabetic neuropathy E11.40 Assessment & Plan Assessment & Plan (1) Diabetes type 2, controlled: Code(s): E11.9 - Type 2 diabetes mellitus without complications Category: Medical Plan: A1c?5.6%.??Good?control.??Goal?is?less?than?7%. Continue?current?medications?as?prescribed (2) HTN (hypertension): Code(s): I10 - Essential (primary) hypertension Category: Medical Plan: Blood?pressure?is?controlled.??Goal?is?less?than?140/90 Blood?pressures?fluctuate?somewhat?due?to?her?dialysis?but?appears?well?controll ed?today. Continue?current?medication?regimen (3) Renal failure: Code(s): N19 - Unspecified kidney failure Category: Medical Plan: Ongoing?dialysis Tolerating?well Follow-up?with?nephrology?as?recommended (4) Diabetic neuropathy: Code(s): E11.40 - Type 2 diabetes mellitus with diabetic neuropathy, unspecified Category: Medical Plan: Does?get?some?numbness?and?tingling?bilateral?lower?extremities. Also?developing?calluses?feet Referred?her?to?Podiatry.??Callus?appears?to?be?returning?slightly.??She?will?co ntact?her?lodging facilities attendant?regarding?this. Orders: Orders AMB Hemoglobin A1c Today E11.9 - Type 2 diabetes mellitus without complications
[2025-02-25 13:52] VITALS: BP 130/60; PULSE 81; RESP 14
--- OUTSIDE RECORDS SUMMARY | 2025-02-25 16:28 | XMS_ITS | Clinical Summary ---
Author Organization [facility] Address [address] [place] [phone] Phone Care Team Providers Care Appointment Clerk Name Role Phone Scott Patrick MD Primary Care Provider Allergies Active Allergy Reactions Criticality Noted Date [...] into a venous catheter Once Active Retacrit 16766 UNIT/ML solution INJECT 40,000 UNITS UNDER THE [...] EACH DAY. 90 tablet 2 5 Active ergocalciferol (Drisdol) 1.25 MG (07493 UT) capsule Take 1 capsule (50,000 Units total) by mouth 1 (one) time per week 12 capsule 1 5 02/25/20 26 Active Hospital, Clinic, or Other Facility Administered Medication Ordered Dose Route Frequency Start Date End Date Status Epoetin Clay-epbx solution 20,000 UnitsIndications:Stage 5 chronic kidney disease (HCC),Type 2 diabetes mellitus with diabetic chronic kidney disease (HCC) 66266 Units IJ Once 02/06/2023 Active Active Problems [...] in sleep behavior 05/16/2006 07/06/2021 Overview (07/06/2021): IMO update Dysthymic disorder 05/16/2006 Pure hypercholesterolemia 04/23/2006 Encounters Date Type Department Care Team Description 02/24/2025 Treatment [facility] [address] [phone] Jose Calle MD End stage renal disease; Dependence on renal dialysis 2025 Treatment [facility] [address] [address] Jose Calle MD End stage renal disease; Dependence on renal dialysis 01/27/2025 Treatment [facility] [address] [address] Jose Calle MD End stage renal disease; Dependence on renal dialysis 01/20/2025 Treatment [facility] [address] [address] Jose Calle MD End stage renal disease; Dependence on renal dialysis 01/18/2025 Treatment [facility] [address] [address] Jose Calle MD End stage renal disease; Dependence on renal dialysis 01/06/2025 Treatment [facility] [address] [address] Jose Calle MD 12/30/2024 Treatment [facility] [address] [address] Jose Calle MD 12/28/2024 Treatment [facility] [address] [address] Jose Calle MD 12/23/2024 Treatment [facility] [address] [place] [address] [address] [place] [address] Jose Calle MD 12/09/2024 Treatment [facility] [address] [place] [address] Jose Calle MD 12/02/2024 Treatment [facility] [address] [address] Jose Calle MD from Last 3 Months Immunizations Immunization Administration Dates Next Due Influenza, Unspecified 09/22/2020,12/19/2019, [...] Comments Breast Cancer Screening 1962 Pneumococcal Vaccine: Peds ( 0 to 5 Years) and At-Risk Patients (6 to 49 Years) (1 of 2 - PCV) 02/04/1968 Hepatitis B Vaccine (1 of 5 - Risk Dialysis 4-dose series) 1982 Colorectal Cancer Screening: Annual FOBT 2011 Colorectal Cancer Screening: Colonoscopy 2011 Colorectal Cancer Screening: Sigmoidoscopy 2011 Diabetes: Ophthalmology Exam 12/18/2020 05/03/2008 Diabetes: Pedal Pulse Checked 12/18/2020 Diabetes: Sensory Foot Exam 12/18/2020 Diabetes: Visual Foot Exam 12/18/2020 Diabetes: Hemoglobin A1C 05/19/2025 025, 11/25/2024, 08/17/2021 Influenza Vaccine (Season Ended) 2025 09/22/2020, 12/19/2019, 12/17/2019 Procedures Procedure Name Priority Date/Time Associated Diagnosis Comments COLLECTION DATE (HC) Routine 02/17/2025 3:00 AM EDT PROTEIN, TOTAL, SERUM Routine 02/17/2025 3:00 AM EDT MAGNESIUM Routine 02/17/2025 3:00 AM EDT TRANSFERRIN SATURATION Routine 3:00 AM EDT LIPID PANEL Routine 02/17/2025 3:00 AM EDT ELECTROLYTE PANEL Routine 02/17/2025 3:0 0 AM EDT LIH (HC) Routine 02/17/2025 3:00 AM EDT LACTATE DEHYDROGENASE Routine 02/17/2025 3:00 AM EDT KT/V NATURAL LOG, URR (HC) Routine 02/17/2025 3:00 AM EDT BILIRUBIN, TOTAL Routine 02/17/2025 3:00 AM EDT ALT Routine 02/17/2025 3:00 AM EDT CREATININE, SERUM Routine 02/17/2025 3:0 0 AM EDT GLUCOSE, RANDOM Routine 02/17/2025 3:00 AM EDT AST Routine 02/17/2025 3:00 AM EDT ALKALINE PHOSPHATASE Routine 02/17/2025 3:00 AM EDT CALCIUM PHOSPHORUS PRODUCT, ADJUSTED (HC) Routine 02/17/2025 3:00 AM EDT PTH, INTACT Routine 02/17/2025 3:00 AM EDT FERRITIN Routine 02/17/2025 3:00 AM EDT HEMOGLOBIN A1C Routine 02/17/2025 3:00 AM EDT CBC AND DIFFERENTIAL Routine 02/17/2025 3:00 AM EDT TRANSFERRIN SATURATION Routine 3:00 AM EST PROTEIN, [...] DATE (HC) Routine 11/27/2024 3:00 AM EST from Last 3 Months Results * Collection Date (02/17/2025 3:00 AM EDT) Only the most recent of2 resultswithin the time period is included. Collection Date See Comment [facility] Comment: Patient sample received may exceed specimen stability, based on the collection date electronically provided. ??When reviewing patient results, verify collection information and consider specimen stability before acting on any critical or panic results. 02/17/2025 3:00 AM EDT us Jose Calle MD LAB [id number] LICITED RESULTS Final Result [facility] [address] [place] [address] * LIH (02/17/2025 3:00 AM EDT) Only the most recent of3 resultswithin the time period is included. Lipemia Normal Normal [facility] Icterus Normal Normal [facility] Hemolysis Normal Normal [facility] 02/17/2025 3:00 AM EDT 02/19/2025 2:39 PM EDT us Jose Calle MD LAB [id number] LICITED RESULTS Final Result Performing Organization Address City/[facility] Co de Phone Number APS [facility] [address] [place] [address] * (ABNORMAL) Kt/V Natural Log, URR (02/17/2025 3:00 AM EDT) Only the most recent of4 resultswithin the time period is included. BUN 43(H) 7 - 25 mg/dL [facility] Treatment Time 212 min [facility] Pre-Weight, lb 71.7 kg [facility] Post-Weight, lb 70.3 kg [facility] Ultrafiltration Rate 6 <=13 mL/kg/hr [facility] Comment: Recommend achieving Ultrafiltration Rate (UFR) <=10 mL/kg/hr References: Stef GUERRERO et al. Kidney Int. 2010; 79(2):250-257 BUN Post Dialysis 8 7 - 25 mg/dL [facility] UREA REDUCTION RATIO (%) 81 >=65 % [facility] Kt/V Natural Log 1.91 >=1.2 [facility] 02/17/2025 3:00 AM EDT 02/19/2025 2:39 PM EDT us Jose Calle MD LAB [id number] LICITED RESULTS Final Result Performing Organization Address City/[facility]/ZIP Co de Phone Number [facility]PS [facility] [address] [place] [address] * (ABNORMAL) Calcium Phosphorus Product, Adjusted (02/17/2025 3:00 AM EDT) Only the most recent of3 resultswithin the time period is included. Albumin 4.3 3.6 - 5.4 g/dL [facility] Calcium 9.3 8.6 - 10.3 mg/dL [facility] Phosphorus, Serum 6.8(H) 2.5 - 5.0 mg/dL [facility] Ca*PO4 63.2(A) <55.0 mg2/dL2 [facility] Calcium, Adjusted Total 9.3 8.6 - 10.3 mg/dL [facility] CA*PO4 CORRCTD 63.2(A) <55.0 mg2/dL2 [facility] 02/17/2025 3:00 AM EDT 02/19/2025 2:39 PM EDT us Jose Calle MD LAB [id number] LICITED RESULTS Final Result Performing Organization Address [facility] de Phone Number [facility]PS [facility] [address] [place] [address] * (ABNORMAL) TSAT (02/17/2025 3:00 AM EDT) Only the most recent of3 resultswithin the time period is included. Iron 39(L) 50 - 170 ug/dL [facility] Transferrin 149(L) 250 - 380 mg/dL [facility] TIBC 209(L) 211 - 406 ug/dL [facility] Iron Saturation (TSat) 19(L) 22 - 52 % [facility] 02/17/2025 3:00 AM EDT 02/19/2025 2:39 PM EDT us Jose Calle MD LAB BLOOD ORDERABLES Final Resu lt Performing Organization Address [facility] Co de Phone Number [facility]PS [facility] [address] [place] [address] * (ABNORMAL) CBC and Differential (02/17/2025 3:00 AM EDT) Only the most recent of3 resultswithin the time period is included. Pathologist [facility] DIFFERENTIAL MANUAL, 2 Not Indicated [facility] White Blood Cells 7.7 4.0 - 10.0 K/uL [facility] RBC 3.92(L) 3.93 - 5.22 M/uL [facility] Hgb 11.8 11.2 - 15.7 g/dL [facility] Hemoglobin x 3 35.4 33.6 - 47.1 g/dL [facility] Hematocrit 38.1 34.1 - 44.9 % [facility] MCV 97.2(H) 79.4 - 94.8 fL [facility] MCH 30.1 25.6 - 32.2 pg [facility] MCHC 31.0(L) 32.2 - 35.5 g/dL [facility] Platelets 357 182 - 369 K/uL [facility] RDW 15.5(H) 11.7 - 14.4 % [facility] Neutrophils Relative 60.6 34.0 - 71.1 % [facility] Lymphocytes Relative 27.5 19.3 - 51.7 % [facility] Monocytes 7.3 4.7 - 12.5 % [facility] Eosinophils Relative 2.9 0.7 - 5.8 % [facility] Basophils Relative 0.8 0.1 - 1.2 % [facility] Immature Granulocytes 0.9 0.0 - 1.0 % [facility] 02/17/2025 3:00 AM EDT 02/19/2025 2:30 PM EDT Jose Calle MD LAB BLOOD ORDERABLES Final Resu lt Performing Organization Address City/[facility]/ZIP Co de Phone Number [facility]PS [facility] [address] [place] [address] * ALT (02/17/2025 3:00 AM EDT) Only the most recent of3 resultswithin the time period is included. ALT (SGPT) 17 10 - 49 U/L [facility] 02/17/2025 3:00 AM EDT 02/19/2025 2:39 PM EDT us Jose Calle MD LAB BLOOD ORDERABLES Final Resu lt Performing Organization Address City/[facility]/ZIP Co de Phone Number [facility] [address] [place] [address] * AST (02/17/2025 3:00 AM EDT) Only the most recent of3 resultswithin the time period is included. AST (SGOT) 22 <34 U/L [facility] 02/17/2025 3:00 AM EDT 02/19/2025 2:39 PM EDT us Jose Calle MD LAB BLOOD ORDERABLES Final Resu lt Performing Organization Address [facility] Co de Phone Number [facility] [address] [place] [address] * Protein, total (02/17/2025 3:00 AM EDT) Only the most recent of3 resultswithin the time period is included. Total Protein 7.0 6.4 - 8.9 g/dL [facility] 02/17/2025 3:00 AM EDT 02/19/2025 2:39 PM EDT us Jose Calle MD LAB BLOOD ORDERABLES Final Resu lt Performing Organization Address [facility] de Phone Number [facility]PS [facility] [address] [place] [address] * (ABNORMAL) Alkaline phosphatase (02/17/2025 3:00 AM EDT) Only the most recent of3 resultswithin the time period is included. Alkaline Phosphatase 117(H) 46 - 116 U/L [facility] 02/17/2025 3:00 AM EDT 02/19/2025 2:39 PM EDT us Jose Calle MD LAB BLOOD ORDERABLES Final Resu lt Performing Organization Address [facility] de Phone Number [facility]PS [facility] [address] [place] [address] * PTH, Intact (02/17/2025 3:00 AM EDT) PTH, Intact 504 160 - 721 pg/mL [facility] Comment: Suggested (KDIGO) ESRD maintenance range is two to nine times the upper normal limit (80.1 pg/mL) for the laboratory. 02/17/2025 3:00 AM EDT 02/19/2025 2:39 PM EDT us Jose Calle MD LAB BLOOD ORDERABLES Final Resu lt Performing Organization Address [facility] de Phone Number [facility] [address] [place] [address] * (ABNORMAL) Magnesium (02/17/2025 3:00 AM EDT) Only the most recent of3 resultswithin the time period is included. Magnesium 2.8(H) 1.9 - 2.7 mg/dL [facility] 02/17/2025 3:00 AM EDT 02/19/2025 2:39 PM EDT us Jose Calle MD LAB BLOOD ORDERABLES Final Resu lt Performing Organization Address [facility] de Phone Number [facility]PS [facility] [address] [place] [address] * (ABNORMAL) Lactate dehydrogenase (02/17/2025 3:00 AM EDT) Only the most recent of3 resultswithin the time period is included. LDH 344(H) 120 - 246 U/L [facility] 02/17/2025 3:00 AM EDT 02/19/2025 2:39 PM EDT us Jose Calle MD LAB BLOOD ORDERABLES Final Resu lt Performing Organization Address [facility] de Phone Number [facility] [address] [place] [address] * Hemoglobin A1c (02/17/2025 3:00 AM EDT) Hemoglobin A1C 5.5 <5.7 % [facility] Comment: Methodology: Enzymatic HbA1c (NGSP %) ?Suggested Diagnosis >6.4% ? Diabetic 5.7-6.4% ?Pre-Diabetic <5.7% ? Non-Diabetic Diabetic Glucose Control Evaluation: Therapeutic action suggested at >8.0% ADA recommends a glycemic goal of <7.0% 02/17/2025 3:00 AM EDT 02/19/2025 2:30 PM EDT us Jose Calle MD LAB BLOOD ORDERABLES Final Resu lt Performing Organization Address [facility] Co de Phone Number [facility] [address] [place] [address] * (ABNORMAL) Glucose, random (02/17/2025 3:00 AM EDT) Only the most recent of3 resultswithin the time period is included. Glucose 165(H) 74 - 109 mg/dL [facility] 02/17/2025 3:00 AM EDT 02/19/2025 2:39 PM EDT us Jose Calle MD LAB BLOOD ORDERABLES Final Resu lt Performing Organization Address [facility] de Phone Number [facility] [address] [place] [address] * (ABNORMAL) Ferritin (02/17/2025 3:00 AM EDT) Only the most recent of3 resultswithin the time period is included. Ferritin 1,402(H) 10 - 291 ng/mL [facility] 02/17/2025 3:00 AM EDT 02/19/2025 2:39 PM EDT us Jose Calle MD LAB BLOOD ORDERABLES Final Resu lt Performing Organization Address [facility] de Phone Number [facility] [address] [place] [address] * (ABNORMAL) Creatinine, serum (02/17/2025 3:00 AM EDT) Only the most recent of3 resultswithin the time period is included. Creatinine 5.89(H) 0.55 - 1.02 mg/dL [facility] 02/17/2025 3:00 AM EDT 02/19/2025 2:39 PM EDT us Jose Calle MD LAB BLOOD ORDERABLES Final Resu lt Performing Organization Address [facility] de Phone Number [facility] [address] [place] [address] * (ABNORMAL) Bilirubin, total (02/17/2025 3:00 AM EDT) Only the most recent of3 resultswithin the time period is included. Total Bilirubin <0.2(L) 0.3 - 1.2 mg/dL [facility] 02/17/2025 3:00 AM EDT 02/19/2025 2:39 PM EDT us Jose Calle MD LAB BLOOD ORDERABLES [facility] Per[facility] Organization Address [facility] de Phone Number [facility]PS [facility] [address] [place] [address] * (ABNORMAL) Lipid panel (02/17/2025 3:00 AM EDT) Cholesterol 204(H) <200 mg/dL [facility] Comment: Optimal: ?<200 Borderline: ? 200-239 Higher Risk: ?>239 Triglycerides 198(A) <150 mg/dL [facility] Comment: Optimal: ?<150 Borderline High: ??150-199 High: ? 200-499 Very High: ?>499 HDL 47(A) >59 mg/dL [facility] Comment: Desirable: ?>59 Higher Risk: ?<40 LDL-Calc 117(A) <100 mg/dL [facility] Comment: Optimal: ?<100 Above Optimal: ?100-129 Borderline High: ??130-159 High: ? 160-189 Very High: ?>189 VLDL Cholesterol Sushil 40(A) <30 mg/dL [facility] Comment: Optimal: ?<30 Borderline High: ??30-39 High: ? 40-99 Very High: ?>99 Chol/HDL Ratio 4.3(A) <3.3 [facility] Comment: Optimal: ?<3.3 Higher Risk: ?>6.2 02/17/2025 3:00 AM EDT 02/19/2025 2:39 PM EDT Jose Calle MD LAB BLOOD ORDERABLES Final Resu lt Performing Organization Address [facility] de Phone Number [facility] [address] [place] [address] * (ABNORMAL) Electrolyte panel (02/17/2025 3:00 AM EDT) Only the most recent of3 resultswithin the time period is included. Sodium 135(L) 136 - 145 mEq/L [facility] Potassium 5.4(H) 3.4 - 5.0 mEq/L [facility] Chloride 98 98 - 107 mEq/L [facility] Bicarbonate (CO2) 22 21 - 31 mEq/L [facility] Anion Gap 15(H) 3 - 14 mEq/L [facility] 02/17/2025 3:00 AM EDT 02/19/2025 2:39 PM EDT us Jose Calle MD LAB BLOOD ORDERABLES Final Resu lt Performing Organization Address [facility] de Phone Number [facility] [address] [place] [address] * Unspun Tube (12/23/2024 3:00 AM EST) Only the most recent of2 resultswithin the time period is included. Unspun Tube [place] [facility] Comment:Received uncentrifug ed specimen. Unable to perform testing. 12/23/2024 3:00 AM EST us Jose Calle MD LAB [id number] LICITED RESULTS Final Result Performing Organization Address [facility] de Phone Number [facility] [address] [place] [address] * (ABNORMAL) Hemoglobin (12/09/2024 3:00 AM EST) Hgb 10.2(L) 11.2 - 15.7 g/dL [facility] Hemoglobin x 3 30.6(L) 33.6 - 47.1 g/dL [facility] 12/09/2024 3:00 AM EST 12/10/2024 2:29 PM EST us Jose Calle MD LAB BLOOD ORDERABLES Final Resu lt Performing Organization Address [facility] de Phone Number [facility] [address] [place] [address] * Hepatitis B Surface Ag w/Reflex Confirmation (12/02/2024 3:00 AM EST) Hep B Surface Antigen Negative Negative [facility] 12/02/2024 3:00 AM EST 12/03/2024 2:54 PM EST us Jose Calle MD LAB BLOOD ORDERABLES Final Resu lt Performing Organization Address [facility] de Phone Number [facility] [address] [place] [address] from Last 3 Months Insurance Medicare Medicaid [place] Medicare Medicaid [place] Care Teams Appointment Clerk Relationship Specialty Start Date End Date Scott Patrick MD [address] [facility] [address] [place] [id number] PCP - General 11/28/20
--- OUTSIDE RECORDS SUMMARY | 2025-02-25 16:28 | XMS_ITS | Encounter Summary ---
Author Organization [facility] Address [address] [address] Phone Care Team Providers Care Splicer Machine Operator Name Role Phone Scott Patrick MD Primary Care Provider [phone] Encounter Details Date Type Department Care Team (Late st Contact Info) Description 02/24/2025 Treatment [facility] [address] [address] Jose Madden MD [address] [address] End stage renal disease; Dependence [...] Miscellaneous Notes * Dialysis Note - Jose Madden MD - 02/24/2025 12:00 AM EDT Patient: Celsa Hicks : 1960 Note Type: Dialysis Rounds-Comp Service Date: 02/24/2025 This patient was personally seen for a complete visit as part of routine monthly dialysis care for end stage renal disease. Attending Crusher: JOSE MADDEN MD Dialysis Location: [facility] Schedule: M-W-F Shift: 2 OVERVIEW Patient is stable. HOME MEDICATIONS Medications reviewed. Current [facility] Outpatient Medications amLODIPine (NORVASC) 2.5 MG tablet TAKE 1 TABLET BY MOUTH 1 TIME EACH DAY. Start Date: 11/22/2024 ergocalciferol (Drisdol) 1.25 MG (03301 UT) capsule Take 1 capsule (50,000 Units total) by mouth 1 (one) time per week Start Date: 02/24/2025 ferumoxytol (FERAHEME) injection Infuse 510 mg into [...] MOUTH EVERY DAY Start Date: 11/02/2024 Retacrit 30993 UNIT/ML solution INJECT 40,000 UNITS UNDER THE [...] status acceptable. ADEQUACY ASSESSMENT Kt/V, Natural Log 1.91 (02/17/25) 1.52 (01/20/25) 1.83 (12/30/24) UREA REDUCTION RATIO (%) 81 (02/17/25) 73 (01/20/25) 81 (12/30/24) BUN 43 (02/17/25) 45 (01/20/25) 36 (12/30/24) BUN Post Dialysis 8 (02/17/25) 12 (01/20/25) 7 (12/30/24) Creatinine 5.89 (02/17/25) 5.58 (01/20/25) 6.40 (12/30/24) Bicarbonate (CO2) 22 (02/17/25) 26 (01/20/25) 28 (12/30/24) Sodium 135 (02/17/25) 137 (01/20/25) 136 (12/30/24) Target met. Prescription compliance acceptable. ACCESS ASSESSMENT Vascular access examined. Current access is permanent and functioning well. ANEMIA ASSESSMENT Hgb 11.8 (02/17/25) 10.5 (01/20/25) 10.1 (12/23/24) Iron Saturation (TSat) 19 (02/17/25) 27 (01/20/25) 16 (12/30/24) Ferritin 1,402 (02/17/25) 1,366 (01/20/25) 1,902 (12/30/24) Iron 39 (02/17/25) 54 (01/20/25) 30 (12/30/24) TIBC 209 (02/17/25) 203 (01/20/25) 190 (12/30/24) MCV 97.2 (02/17/25) 97.1 (01/20/25) 97.0 (12/23/24) Platelets 357 (02/17/25) 348 (01/20/25) 366 (12/23/24) Anemia targets met. Continue current SANG dose. Iron adjusted per protocol. BMM ASSESSMENT Calcium, Adjusted Total 9.3 02/17/25 9.6 01/20/25 9.1 12/30/24 Calcium 9.3 02/17/25 9.6 01/20/25 9.1 12/30/24 Phosphorus, Serum 6.8 02/17/25 5.1 01/20/25 5.0 12/30/24 Ca*PO4 63.2 02/17/25 49.0 01/20/25 45.5 12/30/24 PTH, Intact 504 02/17/25 483 11/25/24 Vitamin D, 25-Hydroxy 5 11/25/24 Magnesium 2.8 02/17/25 2.7 01/20/25 2.4 12/30/24 Alkaline Phosphatase 117 02/17/25 121 01/20/25 96 12/30/24 Aluminum 3 11/25/24 PTH within target. Phosphorus controlled. Calcium controlled. Bone and mineral metabolism parameters reviewed. NUTRITION ASSESSMENT Albumin 4.3 02/17/25 4.1 01/20/25 4.2 12/30/24 Potassium 5.4 02/17/25 5.3 01/20/25 4.4 12/30/24 Hemoglobin A1C 5.5 02/17/25 6.4 11/25/24 Albumin at goal. Potassium controlled. PHYSICAL EXAM Exam performed. Vital Signs Reviewed. Lungs - Clear. CV - Blood pressure noted. No edema. EXT - No ulcers. ADDITIONAL LABS White Blood Cells 7.7 (02/17/25) 8.6 (01/20/25) 7.7 (12/23/24) Cholesterol 204 (02/17/25) 192 (11/25/24) HDL 47 (02/17/25) 46 (11/25/24) LDL-Calc 117 (02/17/25) 105 (11/25/24) Triglycerides 198 (02/17/25) 203 (11/25/24) Hep B Surface Antibody 285 (11/25/24) 224 (10/28/24) Uric Acid 5.3 (11/25/24) Signed by: JOSE MADDEN MD on 02/24/2025 at 10:44:41 PM documented in this encounter Plan of Treatment Not on file documented as of this encounter Visit Diagnoses Diagnosis End stage renal disease Dependence on renal dialysis documented in this encounter Care Teams Splicer Machine Operator Relationship Specialty Start Date End Date Scott Patrick MD [address] [address] PCP - General 11/28/20 documented as of this encounter
--- OUTSIDE RECORDS SUMMARY | 2025-02-25 16:28 | XMS_ITS | Encounter Summary ---
Author Organization [facility] Address [address] [place] [address] Phone Care Team Providers Care Web Portal Developer Name Role Phone Scott Patrick MD Primary Care Provider [phone] Encounter Details Date Type Department Care Team (Late st Contact Info) Description 04/03/2023 Office Communication [facility] [address] [place] [address] Silvia Rodney RN [address] [place] [address] Social History Tobacco Use Types [...] on filedocumented in this encounter Care Teams Web Portal Developer Relationship Specialty Start Date End Date Scott Patrick MD 10 [facility] [address] [place] [address] PCP - General 11/28/20 documented as of this encounter
--- OUTSIDE RECORDS SUMMARY | 2025-02-25 16:28 | XMS_ITS | Encounter Summary ---
Author Organization [facility] Address [address] [place] [address] Phone Care Team Providers Care Prison Officer Name Role Phone Scott Patrick MD Primary Care Provider [phone] Reason for Visit * Reason Comments Med Refill Encounter Details Date Type Department Care Team (Late st Contact Info) Description 08/04/2022 Refill [facility] [address] [place] [address] Micky Gamboa, DO [address] [place] [id number] Social History Tobacco Use Types Packs/Day Years [...] on filedocumented in this encounter Care Teams Prison Officer Relationship Specialty Start Date End Date Scott Patrick MD [address] [address] PCP - General 11/28/20 documented as of this encounter
== END 2025-02-25 14:17 | disposition home or self-care (01) ==
LOC: HO.HMCFM 13:38
PROVIDERS: PCP Family Medicine; Visit Provider Family Medicine
DX: E11.40 Type 2 diabetes mellitus with diabetic neuropathy, unspecified (principal); I10 Essential (primary) hypertension; N19 Unspecified kidney failure

== ENCOUNTER → 2025-02-25 13:38 | Outpatient (BNVA) | payer MEDICARE, MEDICAID, SELFPAY | PROVIDERS: PCP Family Medicine; Visit Provider Family Medicine | DX: E11.40 Type 2 diabetes mellitus with diabetic neuropathy, unspecified (principal); N19 Unspecified kidney failure; I10 Essential (primary) hypertension | CPT/HCPCS: 83036; 99212 ==

== ENCOUNTER 2025-05-27 11:04 | Outpatient (AMB) | payer MEDICARE, MEDICAID, SELFPAY ==
--- NOTE | 2025-05-27 11:25 | MHC.OFFVIS ---
Vital Signs 05/27/25 11:25 Height 5 ft 7 in Intake Visit Reasons: Follow Up Accompanied by: GYMNASTIC TEACHER Allergies Penicillins (PENICILLINS) Allergy (Severe, Verified 05/27/25 11:38) INVOLUNTARY SPASMS Medication List - Last Reconciled 05/27/25 by Eloisa Zheng CNP acetaminophen 650 mg PO Q6H PRN amlodipine 2.5 mg PO DAILY blood pressure monitor Automatic, Digital. Dx: I10. Daily As directed, 999 days/lifetime blood sugar diagnostic (FreeStyle Lite Strips) 1 strip miscellaneous TID ergocalciferol (vitamin D2) units PO gabapentin 800 mg PO TID insulin aspart U-100 (Novolog FlexPen U-100 Insulin aspart) See Protocol Inject 3 times a day per sliding scale. 100-129: 2U, 130-179: 4U, 180-229: 6U, 230-279: 8U, 280-329: 10U, 330-379: 12U, 380-429 14U. Call PCP if greater than 400. subcut 3 times a day; 30 days insulin glargine (Lantus Solostar U-100 Insulin) 8 units (0.08 mL) subcut BEDTIME 30 days lancets (FreeStyle Lancets) USE 3 TIMES A DAY FOR DIABETES, 90 days losartan 50 mg PO DAILY miscellaneous medical supply Wheelchair Daily, As directed, 999 days. ondansetron HCl 4 mg PO DAILY pen needle, diabetic Use QID,As directed. 90 day supply sevelamer carbonate (Renvela) 1,600 mg PO TID sucroferric oxyhydroxide 500 mg PO BID tramadol 50 mg PO BID HPI Comments Details: She was here with her GYMNASTIC TEACHER. She was still getting some occasional brief, shooting pains in neck. Hands feel achy. Ongoing back pain with pain down both legs, worse when sitting in dialysis chair. Tramadol and gabapentin help. Has dialysis 3x/week, started in 03/2023. L AV fistula. On transplant list. Feels woozy and dizzy at times, most often in the afternoon and when BP drops with dialysis. Has trouble with weakness and dizziness from orthostatic hypotension. Walking short distances. Has had 3 falls since last visit. Worked with PT, more pain afterward. Has low iron and gets iron infusions. Has retinal problems and gets injections. Had L CTS release 01/26/2022. Did not get R CTS release. Hx diabetes since 2009 and peripheral neuropathy since 2015 with numbness in her feet. Hx of frequent falls with losing balance and dizziness. [facility] Medical History (Updated 05/27/25 @ 12:00 by Eloisa Zheng CNP) Orthostatic hypotension CTS (carpal tunnel syndrome) Stroke Idiopathic peripheral neuropathy Autonomic neuropathy Gastroparesis Chronic kidney disease History of neuropathy Orthostatic hypotension Feeling of incomplete bladder emptying Acute hyperglycemia Depression Diabetes mellitus, insulin dependent (IDDM), controlled HTN (hypertension) Surgical History (Updated 05/17/25 @ 14:45 by Afsaneh Marsh MA) S/P arteriovenous (AV) fistula creation History of carpal tunnel release H/O elbow surgery Hx of appendectomy Family History Father Type 2 diabetes mellitus Mother Type 2 diabetes mellitus Brother Substance use disorder Son Substance use disorder Other Mental health disorder Social History Household Members: Significant Other and Children Housing: House Alcohol intake: never Comment: sleeping Patient Tobacco Use Status: Never used Tobacco e-Cigarette/Vaping Use: Never Used Second Hand Smoke Exposure: No service: No Current occupational status: disabled Current occupational exposures/hazards: No Cognitive needs: No Hearing needs: No Vision needs: No Review of Systems Const Denies chills, Denies daytime sleepiness, Reports difficulty sleeping, Denies fatigue, Denies fever(s), Reports frequent falls, Denies headache(s), Denies increased appetite, Denies poor appetite, Denies snoring, Reports weakness, Denies weight gain and Denies weight loss Eyes Denies loss of vision ENT Denies vertigo, Reports dizziness, Denies headache(s) and Reports neck pain Card Denies chest pain at rest, Denies chest pain with activity, Denies syncope, Denies leg edema, Denies palpitations, Denies dyspnea and Denies dyspnea on exertion Resp Denies cough, Denies dyspnea, Denies dyspnea on exertion and Denies snoring GI Denies abdominal pain, Denies constipation, Denies heartburn, Denies diarrhea and Denies nausea Denies urinary frequency, Denies urinary incontinence and Denies urinary urgency Musc Reports abnormal gait (balance difficulty), Reports back pain, Denies myalgias, Denies arthralgias, Reports neck pain, Denies numbness, Denies stiffness and Denies tingling Neuro Reports abnormal gait (balance difficulty), Denies vertigo, Reports dizziness, Denies syncope, Reports frequent falls, Denies headache(s), Denies lack of coordination, Denies loss of vision, Denies memory loss, Denies numbness, Denies Other visual disturbances, Denies restless legs, Denies seizure-like activity, Denies tingling, Denies paresthesias, Denies tremor(s) and Reports weakness Psych Reports anxiety, Reports depression, Denies auditory hallucinations, Denies memory loss, Denies visual hallucinations and Denies hallucinations Endo Denies fatigue and Denies palpitations Physical Exam Const Other: General Appearance:? normal, in no acute distress. Heart:? S1, S2 normal, no murmurs. Lungs:? clear anteriorly and posteriorly. Musculoskeletal:? normal. Extremities:? no edema. Psych:? alert, oriented, cognitive function intact, cooperative with exam. Neuro Other: Abnormal Neurological Findings:?Areflexia in LE. Loss of vibration below knees. No pin prick sensation below knees. LLE weakness. Mental Status: alert and oriented X 3. Normal attention, orientation, memory, and affect. Cranial Nerves: Pupils are equal, round, and reactive to light. External ocular muscles are intact. Visual garcia are full, no ptosis. Face is symmetrical, no facial weakness or droop. Facial sensations are normal. Tongue protrudes in midline. Palate elevates symmetrically. Shoulder shrugging is normal Motor Examination: As above. Straight Leg Raisin degrees. Sensory Exam: As above. Gait Exam: Wheelchair. Cerebellar Signs: Dbypsy-nr-oqqv is okay. Extrapyramidal System: No tremor, rigidity with normal facial expressions. No bradykinesia. No bradyphrenia. Normal arm swing and posture. No propulsion or retropulsion. Speech: Normal. No dysphasia or dysarthria. Results Reviewed Results Reviewed: [address] [address] XRay Report Signed Patient: Celsa Hicks MR#: [id number] : 1960 Acct:[id number] Age/Sex: 64 / F ADM Date: 07/14/24 Loc: HO.XRAY Attending Dr: Eloisa Zheng CNP Ordering Physician: Eloisa Zheng CNP Date of Service: 07/14/24 Procedure(s): XR cervical spine 3V Accession Number(s): [id number] cc: Eloisa Zheng CNP~ EXAMINATION: XR CERVICAL SPINE CLINICAL INFORMATION: Cervical radiculopathy COMPARISON: None available. TECHNIQUE: 4 views of the cervical spine including swimmer's lateral view. FINDINGS: The cervical thoracic junction is partially obscured on the lateral view despite swimmer's view. Vertebral bodies appear normally aligned with normal height. C5-C6 level there is mild disc space narrowing and osteophytes indicative of mild degenerative disc changes. The remaining disc levels are normal. Facets are unremarkable. Surrounding bone and soft tissues are unremarkable. XR/XR cervical spine 3V IMPRESSION: 1. Mild spondylosis of the cervical spine. 2. Limited visualization of the cervical thoracic junction on the lateral view. Electronically signed by: Harman Newman MD 08/04/2024 07:33 AM EDT RP Assessment & Plan Assessment & Plan (1) Idiopathic peripheral neuropathy: Code(s): G60.9 - Hereditary and idiopathic neuropathy, unspecified Category: Medical Plan: Continue tramadol 50mg 1 tablet twice a day #60 for 30 days Continue gabapentin 800mg 1 tablet three times a day (2) Lumbar radiculopathy: Code(s): M54.16 - Radiculopathy, lumbar region Category: Medical Plan: Continue tramadol and gabapentin (3) Cervical disc disease: Code(s): M50.90 - Cervical disc disorder, unspecified, unspecified cervical region Category: Medical Plan: XR results reviewed. Discussed option for PT, declining at this time. (4) CTS (carpal tunnel syndrome): Code(s): G56.00 - Carpal tunnel syndrome, unspecified upper limb Category: Medical Qualifiers: Laterality: bilateral Qualified Code(s): G56.03 - Carpal tunnel syndrome, bilateral upper limbs Plan: ?She was planning for R CTS release following L CTS, but this did not happen. At this point, she was not sure if she would consider surgery. If she was interested in surgical option in the future, NCV/EMG could be ordered.?? (5) Stroke: Code(s): I63.9 - Cerebral infarction, unspecified Category: Medical Qualifiers: CVA mechanism: unspecified Qualified Code(s): I63.9 - Cerebral infarction, unspecified Plan: Remote (6) Autonomic dysfunction: Code(s): G90.9 - Disorder of the autonomic nervous system, unspecified Category: Medical Plan: . (7) Syncope: Code(s): R55 - Syncope and collapse Category: Medical Qualifiers: Syncope type: unspecified Qualified Code(s): R55 - Syncope and collapse Plan: . Coding Level of Care Code Tele Est Pt Level 4 (52796) Diagnoses Idiopathic peripheral neuropathy G60.9 Lumbar radiculopathy M54.16 Cervical disc disease M50.90 Bilateral carpal tunnel syndrome G56.03 Laterality: bilateral Cerebrovascular accident (CVA), unspecified mechanism I63.9 CVA mechanism: unspecified Autonomic dysfunction G90.9 Syncope, unspecified syncope type R55 Syncope type: unspecified
--- OUTSIDE RECORDS SUMMARY | 2025-05-27 11:48 | XMS_ITS | Encounter Summary ---
Author Organization [facility] Address [address] [place] [address] Phone Care Team Providers Care Perioperative Assistant Name Role Phone Scott Patrick MD Primary Care Provider [phone] Reason for Visit * Reason Comments Med Refill Encounter Details Date Type Department Care Team (Late st Contact Info) Description 08/04/2022 [facility]ill [facility] [address] [facility] [address] [address] [place] [address] Micky Gamboa, DO [address] [place] [phone] Social History Tobacco Use Types Packs/Day Years [...] on filedocumented in this encounter Care Teams Perioperative Assistant Relationship Specialty Start Date End Date Scott Patrick MD [address] [address] PCP - General 11/28/20 documented as of this encounter
== END 2025-05-27 12:03 | disposition home or self-care (01) ==
LOC: HO.HSM 11:05
PROVIDERS: PCP Family Medicine; Visit Provider Registered Nurse
DX: G60.9 Hereditary and idiopathic neuropathy, unspecified (principal); M54.16 Radiculopathy, lumbar region; M50.90 Cervical disc disorder, unspecified, unspecified cervical region; G56.03 Carpal tunnel syndrome, bilateral upper limbs; I63.9 Cerebral infarction, unspecified; G90.9 Disorder of the autonomic nervous system, unspecified; R55 Syncope and collapse
CPT/HCPCS: 99214

== ENCOUNTER → 2025-05-27 11:04 | Outpatient (BNVA) | payer MEDICARE, MEDICAID, SELFPAY | PROVIDERS: PCP Family Medicine; Visit Provider Registered Nurse | DX: G60.9 Hereditary and idiopathic neuropathy, unspecified (principal); G56.03 Carpal tunnel syndrome, bilateral upper limbs; G90.9 Disorder of the autonomic nervous system, unspecified; M54.16 Radiculopathy, lumbar region; M50.90 Cervical disc disorder, unspecified, unspecified cervical region; Z99.2 Dependence on renal dialysis; R55 Syncope and collapse; Z79.4 Long term (current) use of insulin; Z79.891 Long term (current) use of opiate analgesic; Z91.81 History of falling | CPT/HCPCS: 99212 ==

== ENCOUNTER 2025-06-01 11:35 | Outpatient (AMB) | payer MEDICARE, MEDICAID, SELFPAY ==
--- NOTE | 2025-06-01 12:37 | MHC.PC.OV ---
Vital Signs 06/01/25 12:43 Height 5 ft 7 in Weight 170 lb 4 oz BMI 26.7 BP 138/60 Blood Pressure Location Rt brachial Position Sitting Respiration 14 Pulse 81 Pulse Source Pulse Oximeter Temp 98.5 F Temp Source Oral Pulse Oximetry (%) 97 Oxygen Delivery Method Room Air Intake Visit Reasons: f/u diabetes End-stage renal disease w/ dialysis Intake Note: patient is scheduled to follow up on dm and renal disease Production Team Manager Required: No Allergies Penicillins (PENICILLINS) Allergy (Severe, Verified 06/01/25 12:39) INVOLUNTARY SPASMS Medication List - Last Reconciled 06/01/25 by Scott Patrick MD acetaminophen 650 mg PO Q6H PRN amlodipine 2.5 mg PO DAILY blood pressure monitor Automatic, Digital. Dx: I10. Daily As directed, 999 days/lifetime blood sugar diagnostic (FreeStyle Lite Strips) 1 strip miscellaneous TID ergocalciferol (vitamin D2) units PO gabapentin 800 mg PO TID insulin aspart U-100 (Novolog FlexPen U-100 Insulin aspart) See Protocol Inject 3 times a day per sliding scale. 100-129: 2U, 130-179: 4U, 180-229: 6U, 230-279: 8U, 280-329: 10U, 330-379: 12U, 380-429 14U. Call PCP if greater than 400. subcut 3 times a day; 30 days insulin glargine (Lantus Solostar U-100 Insulin) 8 units (0.08 mL) subcut BEDTIME 30 days lancets (FreeStyle Lancets) USE 3 TIMES A DAY FOR DIABETES, 90 days losartan 50 mg PO DAILY miscellaneous medical supply Wheelchair Daily, As directed, 999 days. ondansetron HCl 4 mg PO DAILY pen needle, diabetic Use QID,As directed. 90 day supply sevelamer carbonate (Renvela) 1,600 mg PO TID sucroferric oxyhydroxide 500 mg PO BID tramadol 50 mg PO BID Tobacco use date assessed: 02/25/24 Dental Screening Dental Screen Date: 02/25/24 HPI f/u diabetes End-stage renal disease w/ dialysis HPI Details 65 y/o female presents to f/u diabetes, end-stage renal disease with dialysis, chronic conditions. Last A1c 02/25/25 5.6%. She is taking Lantus, NovoLog sliding scale for meals A1c today climbed to 6.1%. Blood pressure today 138/60, 81p. She is on losartan 50mg, amlodipine 2.5mg daily. On dialysis and followed by nephrology. HPI Comments History of Present Illness Details Documentation assistance for Scott Patrick MD, was provided by Jose Grant,? Foster Care Worker on 06/01/2025 at 12:47 PM EST. I, Dr. Patrick, have read, observed, and verified documentation. [facility] Medical History (Updated 05/27/25 @ 12:00 by Eloisa Zheng CNP) Orthostatic hypotension CTS (carpal tunnel syndrome) Stroke Idiopathic peripheral neuropathy Autonomic neuropathy Gastroparesis Chronic kidney disease History of neuropathy Orthostatic hypotension Feeling of incomplete bladder emptying Acute hyperglycemia Depression Diabetes mellitus, insulin dependent (IDDM), controlled HTN (hypertension) Surgical History (Updated 05/17/25 @ 14:45 by Afsaneh Marsh MA) S/P arteriovenous (AV) fistula creation History of carpal tunnel release H/O elbow surgery Hx of appendectomy Family History Father Type 2 diabetes mellitus Mother Type 2 diabetes mellitus Brother Substance use disorder Son Substance use disorder Other Mental health disorder Social History Household Members: Significant Other and Children Housing: House Alcohol intake: never Comment: sleeping Patient Tobacco Use Status: Never used Tobacco e-Cigarette/Vaping Use: Never Used Second Hand Smoke Exposure: No service: No Current occupational status: disabled Current occupational exposures/hazards: No Cognitive needs: No Hearing needs: No Vision needs: No Questionnaire PHQ-9 Over the last 2 weeks, how often have you been bothered by any of the following problems? 1. Little interest or pleasure in doing things: not at all 2. Feeling down, depressed, or hopeless: not at all 3. Trouble falling or staying asleep, or sleeping too much: not at all 4. Feeling tired or having little energy: not at all 5. Poor appetite or overeating: not at all 6. Feeling bad about yourself - or that you are a failure or have let yourself or your family down: not at all 7. Trouble concentrating on things, such as reading the newspaper or watching television: not at all 8. Moving or speaking so slowly that other people could have noticed. Or the opposite - being so fidgety or restless that you have been moving around a lot more than usual: not at all 9. Thoughts that you would be better off or of hurting yourself in some way: not at all Total score: 0 Source: Developed by Drs. Carlos Nelson, Miriam Wan, Franky Burnham and colleagues, with an educational janine from [employer]. Thrive Questionnaire Date Thrive assessed: 02/25/24 I am a: Patient What is your living situation today?: I choose not to answer this question Within the past 12 months, did the food you bought not last and you didn't have the money to get more?: I choose not to answer this question Within the past 12 months, did you worry whether your food would run out before you got money to buy more?: I choose not to answer this question Do you have trouble paying for medicines?: I choose not to answer this question Do you have trouble getting transportation to medical appointments?: I choose not to answer this question Do you have trouble paying your heating and electricity bill?: I choose not to answer this question Do you have trouble taking care of your child, family member or friend?: I choose not to answer this question Do you have trouble with day-to-day activities such as bathing, preparing meals, shopping, managing finances, etc.?: I choose not to answer this question Are you currently unemployed and looking for a job?: I choose not to answer this question Are you interested in more education?: I choose not to answer this question Please select the resources that you would like help with: None Currently or been in a relationship where the following occur: I choose not to answer THRIVE Score: 0 AUDIT C Alcohol Use Questionnaire (AUDIT-C) 1. How often do you have a drink containing alcohol?: Never Total Score: 0 CHERYLE-7 AMB Questionnaire CHERYLE-7 Date CHERYLE - 7 assessed: 02/25/24 Feeling nervous, anxious, or on edge: 0 = Not at all Not being able to stop or control worryin = Not at all Worrying too much about different things: 0 = Not at all Trouble relaxin = Not at all Being so restless that it is hard to sit still: 0 = Not at all Becoming easily annoyed or irritable: 0 = Not at all Feeling afraid as if something awful might happen: 0 = Not at all Total CHERYLE-7 score (0-4 normal; 5-9 mild; 10-14 moderate; 15-21 severe): 0 Source: Developed by Drs. Carlos Nelson, Miriam Wan, Franky Burnham and colleagues, with an educational janine from [employer]. Review of Systems Const Denies chills, Denies fatigue, Denies fever(s), Denies headache(s) and Denies weakness ENT Denies dizziness and Denies headache(s) Card Denies dyspnea Resp Denies cough, Denies dyspnea, Denies wheezing and Denies other (shortness of breath) Musc Denies numbness and Denies tingling Neuro Denies dizziness, Denies headache(s), Denies numbness, Denies tingling and Denies weakness Psych Denies anxiety and Denies depression Endo Denies fatigue Aller/Immun Denies wheezing Physical exam (Primary Care) Vital Signs: Last Vital Signs Temp 98.5 F 06/01/25 12:43 Pulse 81 06/01/25 12:43 Resp 14 06/01/25 12:43 BP 138/60 06/01/25 12:43 Pulse Ox 97 06/01/25 12:43 Oxygen Delivery Method Room Air 06/01/25 12:43 BMI result Body Mass Index 26.7 Tobacco/Smoking Status: Tobacco use Status Tobacco use date assessed 02/25/24 06/01/25 12:47 Patient Tobacco Use Status Never used Tobacco 06/01/25 12:47 e-Cigarette/Vaping Use Never Used 06/01/25 12:47 PHQ-9: PHQ-9 Score PHQ-9: Total score 0 06/01/25 12:47 Thrive Assessment: Date of Thrive Assessment Date Thrive assessed 02/25/24 06/01/25 12:47 Currently or been in a relationship where the following occur: I choose not to answer Const General: well developed; No acute distress Nutritional Appearance: well nourished Orientation/consciousness: patient oriented x3 HENMT Head: Yes normocephalic and Yes atraumatic Eyes General: appearance normal, both eyes and all related structures Pupils: Equal, round and reactive pupils present EOM: EOMs intact bilaterally Resp Effort & Inspection: normal respiratory effort Neuro General: patient oriented x3 and gait normal Cranial nerves: Yes Equal, round and reactive pupils present Psych Affect: normal affect Coding Level of Care Code Est Pt Level 3 (86365) Diagnoses Diabetes type 2, controlled E11.9 HTN (hypertension) I10 Chronic kidney disease N18.9 Assessment & Plan Assessment & Plan (1) Diabetes type 2, controlled: Code(s): E11.9 - Type 2 diabetes mellitus without complications Category: Medical Plan: A1c 6.1%. Good control. Goal is less than 7% Continue current medication regimen Continue diabetic diet Encouraged exercise as tolerated She has her upcoming eye exam scheduled. (2) HTN (hypertension): Code(s): I10 - Essential (primary) hypertension Category: Medical Plan: Blood pressure is controlled. Goal is less than 140/90 Continue current medication regimen (3) Chronic kidney disease: Comment: stage 3 Code(s): N18.9 - Chronic kidney disease, unspecified Category: Medical Plan: On dialysis and followed by Nephrology Will request report and lab work Medications: Refilled lancets (FreeStyle Lancets) USE 3 TIMES A DAY FOR DIABETES, 90 days 300 ea 3RF E11.9 - Type 2 diabetes mellitus without complications
[2025-06-01 12:43] VITALS: BP 138/60; PULSE 81; RESP 14; TEMP 36.9; O2SAT 97; BMI 26.7
--- OUTSIDE RECORDS SUMMARY | 2025-06-01 12:58 | XMS_ITS | Encounter Summary ---
Author Organization [facility] Address [address] [place] [address] Phone Care Team Providers Care Professor Of Business Name Role Phone Scott Patrick MD Primary Care Provider [phone] Reason for Visit * Reason Comments Med Refill Encounter Details Date Type Department Care Team (Late st Contact Info) Description 08/04/2022 Refill [facility] [address] [facility] [address] [address] [place] [address] Micky Gamboa, DO [address] [place] [id number] Social History Tobacco Use Types Packs/Day Years [...] in this encounter Care Teams Professor Of Business Relationship Specialty Start Date End Date Scott Patrick MD [address] [address] PCP - General 11/28/20 documented as of this encounter
== END 2025-06-01 13:00 | disposition home or self-care (01) ==
LOC: HO.HMCFM 11:36
PROVIDERS: PCP Family Medicine; Visit Provider Family Medicine
DX: E11.9 Type 2 diabetes mellitus without complications (principal); I12.9 Hypertensive chronic kidney disease with stage 1 through stage 4 chronic kidney disease, or unspecified chronic kidney disease; N18.9 Chronic kidney disease, unspecified

== ENCOUNTER → 2025-06-01 11:35 | Outpatient (BNVA) | payer MEDICARE, MEDICAID, SELFPAY | PROVIDERS: PCP Family Medicine; Visit Provider Family Medicine | DX: I12.9 Hypertensive chronic kidney disease with stage 1 through stage 4 chronic kidney disease, or unspecified chronic kidney disease (principal); E11.22 Type 2 diabetes mellitus with diabetic chronic kidney disease; N18.9 Chronic kidney disease, unspecified | CPT/HCPCS: 99212 ==